=== PATIENT | female | born 1985 | race Caucasian/White ===

== ENCOUNTER → 2020-03-23 11:32 | Outpatient (CLI) | payer OTHER, SELFPAY ==
[2020-03-23 10:54] VITALS: BMI 27.4
[2020-03-23 11:35] LABS: Bacteria 0 SEEN /hpf (None Seen); Mucous, Urine 0 SEEN /hpf (<or=2+); Red Blood Cells-Urine 0 SEEN /hpf (0-5)
[2020-03-23 15:21] LABS: Basophil# 0.05 X10^3/uL; Basophil% 0.7 % (0-1); Color, Urine Yellow (Yellow); Eosinophil# 0.06 X10^3/uL; Eosinophils% 0.9 % (0-5); Glucose, Dipstick Normal (Normal); Hematocrit 48.6 % (37-47); Hemoglobin 15.5 g/dL (12.0-15.0); Ketone-Dipstick Negative (Negative); Leukocyte Esterase-Dipstick Negative /ul (Negative); Lymphocyte % 18.9 % (19-41); Mean Corp Hgb Conc 31.9 g/dL (32-36); Mean Corpuscular Hgb 30.5 pg (27.0-32.0); Mean Corpuscular Volume 95.5 fL (81-99); Mean Platelet Vol. 11.1 fl (6.2-12.0); Monocyte# 0.43 X10^3/uL; Monocyte% 6.2 % (0-10); NRBC Flagged by Analyzer 0 % (0-5); Neutrophil # 5.03 X10^3/uL (2.7-7.7); Nitrite-Dipstick Negative (Negative); Occult Blood-Urine Negative /ul (Negative); Platelet Count 299 K/mm3 (150-450); Protein-Dipstick 100 mg/dl (Negative); RBC Distribution Width CV 12.4 % (11.6-14.6); RBC Distribution Width SD 43.1 fl (35.1-43.9); Red Blood Count 5.09 M/mm3 (4.2-5.4); Urine Bilirubin Dipstick Negative (Negative); Urine Clarity Clear (Clear); Urine Urobilinogen Normal (Normal); White Blood Count 6.9 K/mm3 (4.4-11.0)
[2020-03-23 15:31] LABS: Squamous Epithelial Cells - UA 10-25 SEEN /hpf (5-10)
[2020-03-23 15:32] LABS: White Blood Cells 0-5 SEEN /hpf (0-5)
[2020-03-23 16:03] LABS: ALB/GLOB Ratio 1.1 RATIO (0.9-2.4); AST(SGOT) 11 U/L (15-37); Alanine Aminotransfer ALT/SGPT 21 U/L (13-56); Albumin, Serum 4.3 g/dL (3.2-5.0); Alkaline Phosphatase 58 U/L (45-117); Anion Gap 4 (5-15); BUN 9 mg/dL (7-18); BUN/Creat Ratio 10.5 RATIO (10-20); Calcium,Total 9.7 mg/dL (8.5-10.1); Chloride 105 mmol/L (98-107); Cholesterol 267 mg/dL (200); Creatinine, Serum 0.86 mg/dL (0.55-1.02); EST Glomerular Filtration Rate 79 mL/min (>60); Est Glom Filt Rate - Afr Amer 96 mL/min (>60); Globulin 3.9 g/dL (2.2-4.2); Glucose 92 mg/dL (74-106); High Density Lipoprotein 50 mg/dL; Potassium 3.8 mmol/L (3.5-5.1); Protein, Total 8.2 g/dL (6.4-8.2); Sodium Level 138 mmol/L (136-145); T4 Free Direct 0.98 ng/dL (0.76-1.46); Thyroid Stim Hormone (TSH) 3.16 uIU/mL (0.358-3.74); Triglycerides 239 mg/dL; Very Low Density Lipoprotein 48 mg/dL (5-40)
== END ==
PROVIDERS: PCP Internal Medicine; Referring Provider Internal Medicine; Visit Provider Internal Medicine
DX: I10 Essential (primary) hypertension (principal); Z13.29 Encounter for screening for other suspected endocrine disorder
CPT/HCPCS: 36415; 80053; 80061; 81001; 84439; 84443; 85025

== ENCOUNTER → 2020-04-04 09:32 | Outpatient (CLI) | payer OTHER, SELFPAY ==
[2020-03-23 10:54] VITALS: BMI 27.4
--- NOTE | 2020-04-04 09:33 | US_ITS ---
STUDY: THYROID ULTRASOUND REASON FOR EXAM: Female, 35 years old. NECK SWELLING TECHNIQUE: Ultrasound evaluation of the thyroid was performed with real-time and static freedman-scale imaging. COMPARISON: None. FINDINGS: RIGHT LOBE: The right lobe of the thyroid gland measures 4.4 cm x 1.6 cm x 0.9 cm. There is a homogeneous echotexture. There are no demonstrated solid, cystic or complex lesions. LEFT LOBE: The left lobe of the thyroid gland measures 4.2 cm x 1.5 cm x 1.2 cm. There is a homogeneous echotexture. There are no demonstrated solid, cystic or complex lesions. ISTHMUS: The isthmus measures 3.0 mm. The regional lymph nodes are normal. US/Thyroid IMPRESSION: Normal ultrasound examination of the thyroid. Electronically Signed: Newton Vincent, at 11:32 EDT , Service support ,
--- NOTE | 2020-04-04 09:33 | EKG12_ITS ---
Test Reason : HTN Blood Pressure : / mmHG Vent. Rate : 092 BPM Atrial Rate : 092 BPM P-R Int : 130 ms QRS Dur : 078 ms QT Int : 338 ms P-R-T Axes : 043 023 043 degrees QTc Int : 417 ms Normal sinus rhythm Normal ECG Confirmed by JEOVANY GALVEZ, GISELLE ([id number]), restaurant expeditor SUNG AMAYA ([id number]) on 04/05/2020 10:48:15 AM Referred By: Eloy Gonzalez Confirmed By:GISELLE THAYER MD
== END ==
PROVIDERS: PCP Internal Medicine; Referring Provider Internal Medicine; Visit Provider Internal Medicine
DX: R22.1 Localized swelling, mass and lump, neck (principal); I10 Essential (primary) hypertension
CPT/HCPCS: 76536; 93005

== ENCOUNTER → 2020-04-05 09:42 | Outpatient (CLI) | payer OTHER, SELFPAY ==
[2020-04-05 09:16] VITALS: BMI 27.4
[2020-04-05 12:44] LABS: Anion Gap 10 (5-15); BUN 13 mg/dL (7-18); BUN/Creat Ratio 15.2 RATIO (10-20); Calcium,Total 9.2 mg/dL (8.5-10.1); Chloride 103 mmol/L (98-107); Creatinine, Serum 0.86 mg/dL (0.55-1.02); EST Glomerular Filtration Rate 79 mL/min (>60); Est Glom Filt Rate - Afr Amer 96 mL/min (>60); Glucose 95 mg/dL (74-106); Potassium 3.4 mmol/L (3.5-5.1); Sodium Level 138 mmol/L (136-145)
== END ==
PROVIDERS: PCP Internal Medicine; Referring Provider Internal Medicine; Visit Provider Internal Medicine
DX: I10 Essential (primary) hypertension (principal)
CPT/HCPCS: 36415; 80048

== ENCOUNTER → 2020-07-05 09:41 | Outpatient (CLI) | payer OTHER, SELFPAY ==
[2020-07-05 13:04] LABS: Anion Gap 6 (5-15); BUN 13 mg/dL (7-18); BUN/Creat Ratio 13.2 RATIO (10-20); Calcium,Total 9.1 mg/dL (8.5-10.1); Chloride 106 mmol/L (98-107); Creatinine, Serum 0.98 mg/dL (0.55-1.02); EST Glomerular Filtration Rate 68 mL/min (>60); Est Glom Filt Rate - Afr Amer 82 mL/min (>60); Glucose 99 mg/dL (74-106); Sodium Level 139 mmol/L (136-145)
== END ==
PROVIDERS: PCP Internal Medicine; Referring Provider Internal Medicine; Visit Provider Internal Medicine
DX: I10 Essential (primary) hypertension (principal)
CPT/HCPCS: 36415; 80048

== ENCOUNTER → 2020-07-26 16:51 | Outpatient (CLI) | payer OTHER, SELFPAY ==
[2020-07-26 14:19] VITALS: BMI 27.7
[2020-08-01 04:29] LABS: HPV APTIMA, High Risk Negative (Negative)
== END ==
PROVIDERS: PCP Internal Medicine; Visit Provider Nurse Practitioner Women's Health
DX: Z12.4 Encounter for screening for malignant neoplasm of cervix (principal)
CPT/HCPCS: 87624; 88175; G0145

== ENCOUNTER → 2020-10-04 09:27 | Outpatient (CLI) | payer OTHER, SELFPAY ==
[2020-10-04 08:58] VITALS: BMI 27.1
[2020-10-04 14:33] LABS: Anion Gap 6 (5-15); BUN 11 mg/dL (7-18); BUN/Creat Ratio 12.1 RATIO (10-20); Calcium,Total 9.3 mg/dL (8.5-10.1); Chloride 104 mmol/L (98-107); Creatinine, Serum 0.91 mg/dL (0.55-1.02); EST Glomerular Filtration Rate 74 mL/min (>60); Est Glom Filt Rate - Afr Amer 89 mL/min (>60); Glucose 90 mg/dL (74-106); Potassium 3.4 mmol/L (3.5-5.1); Sodium Level 139 mmol/L (136-145)
== END ==
PROVIDERS: PCP Internal Medicine; Referring Provider Internal Medicine; Visit Provider Internal Medicine
DX: I10 Essential (primary) hypertension (principal)
CPT/HCPCS: 36415; 80048

== ENCOUNTER → 2020-11-09 11:24 | Outpatient (CLI) | payer OTHER, SELFPAY ==
[2020-11-09 10:38] VITALS: BMI 26.0
[2020-11-09 15:56] LABS: Anion Gap 6 (5-15); BUN 13 mg/dL (7-18); BUN/Creat Ratio 15.3 RATIO (10-20); Calcium,Total 9.8 mg/dL (8.5-10.1); Chloride 101 mmol/L (98-107); Creatinine, Serum 0.85 mg/dL (0.55-1.02); EST Glomerular Filtration Rate 80 mL/min (>60); Est Glom Filt Rate - Afr Amer 96 mL/min (>60); Glucose 90 mg/dL (74-106); Potassium 3.2 mmol/L (3.5-5.1); Sodium Level 137 mmol/L (136-145)
== END ==
PROVIDERS: PCP Internal Medicine; Referring Provider Internal Medicine; Visit Provider Internal Medicine
DX: I10 Essential (primary) hypertension (principal)
CPT/HCPCS: 36415; 80048

== ENCOUNTER 2020-11-30 10:20 | Outpatient (RCR) | payer OTHER, SELFPAY ==
[2020-11-09 10:38] VITALS: BMI 26.0
== END 2021-01-31 23:59 ==
LOC: IMMUN 10:20
PROVIDERS: PCP Internal Medicine; Visit Provider Family Medicine
DX: Z23 Encounter for immunization (principal)
CPT/HCPCS: 0002A; 91300

== ENCOUNTER → 2021-02-08 11:31 | Outpatient (CLI) | payer OTHER, SELFPAY ==
[2021-02-08 10:51] VITALS: BMI 26.0
[2021-02-08 12:12] LABS: Absolute Neutrophil Count 5.1 X10^3/uL (2.0-7.7); Basophil# 0.05 X10^3/uL; Basophil% 0.7 % (0-1); Eosinophils% 1.4 % (0-5); Hematocrit 48.1 % (37-47); Hemoglobin 15.8 g/dL (12.0-15.0); Lymphocyte % 19.4 % (19-41); Mean Corp Hgb Conc 32.8 g/dL (32-36); Mean Corpuscular Hgb 29.7 pg (27.0-32.0); Mean Corpuscular Volume 90.4 fL (81-99); Mean Platelet Vol. 10.7 fl (6.2-12.0); Monocyte# 0.56 X10^3/uL; Monocyte% 7.8 % (0-10); NRBC Flagged by Analyzer 0 % (0-5); Neutrophil # 5.07 X10^3/uL (2.7-7.7); Neutrophil % 70.4 % (47-70); Platelet Count 294 K/mm3 (150-450); RBC Distribution Width CV 11.9 % (11.6-14.6); RBC Distribution Width SD 39.4 fl (35.1-43.9); Red Blood Count 5.32 M/mm3 (4.2-5.4); White Blood Count 7.2 K/mm3 (4.4-11.0)
[2021-02-08 13:05] LABS: ALB/GLOB Ratio 1.1 RATIO (0.9-2.4); AST(SGOT) 9 U/L (15-37); Alanine Aminotransfer ALT/SGPT 18 U/L (13-56); Alkaline Phosphatase 58 U/L (45-117); Anion Gap 4 (5-15); BUN 9 mg/dL (7-18); BUN/Creat Ratio 10.9 RATIO (10-20); Calcium,Total 9.4 mg/dL (8.5-10.1); Chloride 104 mmol/L (98-107); Cholesterol 224 mg/dL (200); Creatinine, Serum 0.82 mg/dL (0.55-1.02); EST Glomerular Filtration Rate 82 mL/min (>60); Est Glom Filt Rate - Afr Amer 100 mL/min (>60); Globulin 3.7 g/dL (2.2-4.2); Glucose 83 mg/dL (74-106); High Density Lipoprotein 40 mg/dL; Potassium 3.5 mmol/L (3.5-5.1); Protein, Total 7.7 g/dL (6.4-8.2); Sodium Level 139 mmol/L (136-145); Triglycerides 330 mg/dL; Very Low Density Lipoprotein 66 mg/dL (5-40)
== END ==
PROVIDERS: PCP Internal Medicine; Referring Provider Internal Medicine; Visit Provider Internal Medicine
DX: I10 Essential (primary) hypertension (principal)
CPT/HCPCS: 36415; 80053; 80061; 85025

== ENCOUNTER → 2021-05-09 10:45 | Outpatient (CLI) | payer OTHER, SELFPAY ==
[2021-05-09 12:35] LABS: Anion Gap 8 (5-15); BUN 12 mg/dL (7-18); BUN/Creat Ratio 16.6 RATIO (10-20); Calcium,Total 9.1 mg/dL (8.5-10.1); Chloride 103 mmol/L (98-107); Creatinine, Serum 0.72 mg/dL (0.55-1.02); EST Glomerular Filtration Rate 96 mL/min (>60); Est Glom Filt Rate - Afr Amer 116 mL/min (>60); Glucose 97 mg/dL (74-106); Potassium 3.7 mmol/L (3.5-5.1); Sodium Level 140 mmol/L (136-145)
== END ==
PROVIDERS: PCP Internal Medicine; Referring Provider Internal Medicine; Visit Provider Internal Medicine
DX: I10 Essential (primary) hypertension (principal)
CPT/HCPCS: 36415; 80048

== ENCOUNTER → 2021-08-09 10:39 | Outpatient (CLI) | payer OTHER, SELFPAY ==
[2021-08-09 12:47] LABS: Cholesterol 244 mg/dL (200); High Density Lipoprotein 47 mg/dL; Triglycerides 193 mg/dL; Very Low Density Lipoprotein 39 mg/dL (5-40)
== END ==
PROVIDERS: PCP Internal Medicine; Visit Provider Internal Medicine
DX: E78.5 Hyperlipidemia, unspecified (principal)
CPT/HCPCS: 36415; 80061

== ENCOUNTER 2021-11-10 10:19 | Outpatient (CLI) | payer OTHER, SELFPAY ==
[2021-11-10 12:42] LABS: Anion Gap 5 (5-15); BUN 14 mg/dL (7-18); BUN/Creat Ratio 15.5 RATIO (10-20); Calcium,Total 9.1 mg/dL (8.5-10.1); Chloride 106 mmol/L (98-107); EST Glomerular Filtration Rate 74 mL/min (>60); Est Glom Filt Rate - Afr Amer 90 mL/min (>60); Glucose 87 mg/dL (74-106); Potassium 3.3 mmol/L (3.5-5.1); Sodium Level 138 mmol/L (136-145)
== END 2021-11-10 23:59 | disposition home or self-care (01) ==
LOC: BIMLAB 10:19
PROVIDERS: PCP Internal Medicine; Referring Provider Internal Medicine; Visit Provider Internal Medicine
DX: I10 Essential (primary) hypertension (principal)
CPT/HCPCS: 36415; 80048

== ENCOUNTER → 2022-02-27 | Outpatient (CLI) | payer OTHER, SELFPAY ==
[2022-02-27 12:27] LABS: Absolute Lymphocyte Count 1.51 X10^3/uL (0.83-4.51); Absolute Neutrophil Count 4.3 X10^3/uL (2.0-7.7); Basophil# 0.05 X10^3/uL; Basophil% 0.8 % (0-1); Eosinophil# 0.08 X10^3/uL; Eosinophils% 1.2 % (0-5); Hemoglobin 16.5 g/dL (12.0-15.0); Lymphocyte # 1.51 X10^3/ul (0.83-4.51); Lymphocyte % 23.1 % (19-41); Mean Corp Hgb Conc 32.4 g/dL (32-36); Mean Corpuscular Volume 92.7 fL (81-99); Mean Platelet Vol. 11.9 fl (6.2-12.0); Monocyte# 0.54 X10^3/uL; Monocyte% 8.3 % (0-10); NRBC Flagged by Analyzer 0 % (0-5); Neutrophil # 4.32 X10^3/uL (2.7-7.7); Neutrophil % 66.1 % (47-70); Platelet Count 262 K/mm3 (150-450); RBC Distribution Width CV 11.9 % (11.6-14.6); RBC Distribution Width SD 40.7 fl (35.1-43.9); White Blood Count 6.5 K/mm3 (4.4-11.0)
[2022-02-27 12:58] LABS: ALB/GLOB Ratio 1.1 RATIO (0.9-2.4); AST(SGOT) 13 U/L (15-37); Alanine Aminotransfer ALT/SGPT 16 U/L (13-56); Albumin, Serum 4.3 g/dL (3.2-5.0); Alkaline Phosphatase 56 U/L (45-117); Anion Gap 7 (5-15); BUN 11 mg/dL (7-18); BUN/Creat Ratio 12.7 RATIO (10-20); Chloride 100 mmol/L (98-107); Creatinine, Serum 0.87 mg/dL (0.55-1.02); EST Glomerular Filtration Rate 78 mL/min (>60); Est Glom Filt Rate - Afr Amer 94 mL/min (>60); Glucose 93 mg/dL (74-106); Potassium 3.2 mmol/L (3.5-5.1); Protein, Total 8.3 g/dL (6.4-8.2); Sodium Level 136 mmol/L (136-145)
== END | disposition home or self-care (01) ==
LOC: BIMLAB 10:22
PROVIDERS: PCP Internal Medicine; Visit Provider Internal Medicine
DX: I10 Essential (primary) hypertension (principal)
CPT/HCPCS: 36415; 80053; 85025

== ENCOUNTER 2022-04-07 14:57 | Emergency (ER) | payer OTHER, SELFPAY ==
[2022-04-07 14:58] VITALS: BP 142/98; PULSE 107; RESP 16; TEMP 36.4; O2SAT 100; BMI 26.9
--- NOTE | 2022-04-07 15:11 | EX.ED.UPPERE ---
HPI <JOSE Ramirez - Last Filed: 04/07/22 15:43> History of Present Illness Chief Complaint: Upper Extremity Injury Narrative Narrative: 6 days ago patient noticed some redness around the nail fold of her left index finger. It became more swollen and red over the last 2 days. No trauma or injury. No fever or chills. PFSH <JOSE Ramirez - Last Filed: 04/07/22 15:43> PFSH Medical History Frequent headaches Hyperlipidemia Hypokalemia Seasonal allergies Home Medications acetaminophen 325 mg capsule (Tylenol) 650 mg PO ONCE PRN 03/15/20 [History Last Taken Unknown] blood pressure monitor #1 ea 03/23/20 [Rx Last Taken Unknown] loperamide 2 mg capsule (Imodium A-D) 2 mg PO Q6H PRN 07/26/20 [History Last Taken Unknown] sumatriptan succinate 25 mg tablet See Rx Instructions PO .COMPLEX #14 tabs 02/09/21 [Rx Last Taken Unknown] triamterene 37.5 mg-hydrochlorothiazide 25 mg tablet 1 tab PO QAM #90 tabs 11/13/21 [Rx Last Taken Unknown] losartan 25 mg tablet 25 mg PO DAILY #90 tabs 02/12/22 [Rx Last Taken Unknown] potassium chloride 20 mEq tablet,extended release 20 meq PO BID #90 tabs 04/02/22 [Rx Last Taken Unknown] Allergy/AdvReac Type Severity Reaction Status Date / Time Penicillins Allergy Intermediate hives Verified 04/07/22 14:58 laundry detergents Allergy Intermediate hives Uncoded 04/07/22 14:58 strawberries Allergy Intermediate hives Uncoded 04/07/22 14:58 Family History Mother Myocardial infarction, Onset Age: 45 Hypertension Thyroid disorder Osteoporosis Father Hyperlipemia Hypertension Grandmother Myocardial infarction, Onset Age: 48 Hypertension Thyroid disorder Surgical History History of tonsillectomy Social History household members: other details: mom current occupational status: employed current occupation: [employer] history of recent travel: No sexually active: Yes Smoking Status: Never smoker alcohol intake: never substance use type: does not use what type of physical activity do you participate in: walking seatbelt use: always do you feel safe at home: Yes additional social history: boyfriend ROS <JOSE Ramirez - Last Filed: 04/07/22 15:43> ROS ED ROS Narrative Constitutional: Negative for fever, chills, malaise. Eyes: Negative for visual change. ENT: Negative for sore throat, rhinorrhea. CVS: Negative for palpitations, chest pain, syncope. Respiratory: Negative for shortness of breath, cough. GI: Negative for abdominal pain, nausea, vomiting. : Negative for dysuria, hematuria or frequency. Neuro: Negative for headache, motor/sensory dysfunction. Skin: Positive for redness and swelling of finger. Musc: Negative for joint pain, trauma. Heme: Negative for easy bruising, bleeding, lymphadenopathy. EXAM <JOSE Ramirez - Last Filed: 04/07/22 15:43> Physical Exam Narrative Exam Narrative: CONST: Patient sitting in no acute distress. EYES: Normal inspection. NECK: Normal inspection. RESP: No respiratory distress, CTAB. CVS: Regular rate and rhythm, no murmur, no gallop. SKIN: Color normal, no rash, warm, dry, intact. EXTREMITIES: left index finger nail fold has focal erythema and swelling. No felon, full ROM of hand and digits, brisk cap refill. NEURO: Oriented x4. PSYCH: Normal affect. Const Vital Signs: 04/07/22 14:58 Temperature 97.5 F L Temperature Source Temporal Pulse Rate 107 H Respiratory Rate 16 Blood Pressure 142/98 H Blood Pressure Mean 112 Pulse Ox 100 Oxygen Delivery Method Room Air MDM <JOSE Ramirez - Last Filed: 04/07/22 15:43> [facility] MDM Narrative Medical decision making narrative: Patient presents with a paronychia of her left index finger. She has full range of motion and is neurovascularly intact. No signs of felon. Finger was soaked in warm water and then I used an 18-gauge needle to gently lift the nail fold. Approximately 1 cc of purulent material was expressed. Patient advised to continue warm water soaks and [id number] analgesia and was discharged in stable condition. <Dr. Moe Zapata, DO - Last Filed: 04/07/22 16:10> [facility] MDM Narrative Medical decision making narrative: This patient was seen with a PA/KEYMODULE ASSEMBLY SUPERVISOR Individually assessed they patient including history and physical. I have reviewed everything on the chart that is available and agree with the documentation provided by the PA/KEYMODULE ASSEMBLY SUPERVISOR including discussion about the assessment, treatment plan, discussion, and return precautions. Patient with small paronychia of the left index finger. PA did drain this patient tolerated this well. Wound care and return precautions discussed. Patient stable for discharge. Patient presents with a paronychia of her left index finger. She has full range of motion and is neurovascularly intact. No signs of felon. Finger was soaked in warm water and then I used an 18-gauge needle to gently lift the nail fold. Approximately 1 cc of purulent material was expressed. Patient advised to continue warm water soaks and [id number] analgesia and was discharged in stable condition. Discharge Plan Triage Chief Complaint: Upper Extremity Injury ED Midlevel Provider: Asuncion Manriquez ED Provider: Moe Zapata Dx/Rx/DC Orders Clinical Impression: Paronychia of left index finger Instructions: ED Paronychia of the Finger or Toe Prescriptions: No Action (DME) blood pressure monitor Kit See Rx Instructions .ROUTE .MEDSUPPLY Qty: 1 0RF Rx Instructions: Check blood pressure daily for hypertension I10 acetaminophen [Tylenol] 325 mg capsule 650 mg PO ONCE PRN loperamide [Imodium A-D] 2 mg capsule 2 mg PO Q6H PRN sumatriptan succinate 25 mg tablet See Rx Instructions PO .COMPLEX Qty: 14 0RF Rx Instructions: take 1 tab at onset of headache; if no relief may repeat 1 tab after at least 2 hrs; max = 4 tabs/24 hr PO triamterene-hydrochlorothiazid 37.5-25 mg tablet 1 tab PO QAM Qty: 90 2RF losartan 25 mg tablet 25 mg PO DAILY Qty: 90 3RF potassium chloride 20 mEq tablet extended release 20 meq PO BID Qty: 90 3RF Hold Instructions: Home Medication placed on hold at Doctor's office Primary Care Provider: Eloy Gonzalez Referrals: Eloy Gonzalez MD [Primary Care Provider] - Activity Restrictions/Additional Instructions: Soak your finger in warm water 4 times daily for the next few days and take tylenol or ibuprofen as needed. Disposition Disposition: Home, Self Care Discharge Date/Time: 04/07/22 15:57
== END 2022-04-07 15:57 | disposition home or self-care (01) ==
LOC: ED 15:43
PROVIDERS: Emergency Provider Student in an Organized Health Care Education/Training Program; PCP Internal Medicine; Visit Provider Student in an Organized Health Care Education/Training Program
DX: L03.012 Cellulitis of left finger (principal)
CPT/HCPCS: 99282

== ENCOUNTER → 2022-08-08 | Outpatient (CLI) | payer OTHER, SELFPAY ==
--- NOTE | 2022-08-08 12:36 | BI_ITS ---
MAMMOGRAPHY - BILATERAL SCREENING REASON FOR EXAM: Female, 37 years old. Routine annual screening examination. PERTINENT HISTORY: Non-contributory. TECHNIQUE: Digital bilateral breast mu (3D mammographic acquisition) in the CC and MLO projections. 2-D mediolateral oblique (MLO) and craniocaudad (CC) views of both breasts were obtained. CAD: Full Field Digital Mammography with Computer Added Detection was performed. COMPARISON: None. Baseline examination. FINDINGS: Breast Composition: The breasts are heterogeneously dense, which may obscure small masses. There are no dominant masses or suspicious calcifications. There is asymmetry of breast tissue or more breast tissue is seen in the deep lateral aspect of the right breast as compared to the left side. Small benign-appearing bilateral axillary lymph nodes. No other significant abnormalities are identified. BI/SCRN MAMM (CAD)W/MU BILAT IMPRESSION: Negative screening mammogram. Yearly followup mammogram recommended. (A) ASSESSMENT CATEGORY: BIRADS Category 2: Benign. A letter regarding these results will be sent to the patient by the facility within 30 days. Approximately 10% of breast cancers are not detected by mammography. A normal mammogram should not delay biopsy of a clinically suspicious abnormality. [id number] Electronically Signed: Newton Vincent MD at 13:32 EST ,
== END | disposition home or self-care (01) ==
LOC: OPBI 12:36
PROVIDERS: PCP Internal Medicine; Visit Provider Nurse Practitioner Women's Health
DX: Z12.31 Encounter for screening mammogram for malignant neoplasm of breast (principal)
CPT/HCPCS: 77063; 77067

== ENCOUNTER → 2022-09-21 | Outpatient (CLI) | payer OTHER, SELFPAY ==
[2022-09-21 12:36] LABS: ALB/GLOB Ratio 1.2 RATIO (0.9-2.4); AST(SGOT) 15 U/L (15-37); Alanine Aminotransfer ALT/SGPT 22 U/L (13-56); Albumin, Serum 4.1 g/dL (3.2-5.0); Alkaline Phosphatase 57 U/L (45-117); Anion Gap 7 (5-15); BUN 16 mg/dL (7-18); BUN/Creat Ratio 15.7 RATIO (10-20); Calcium,Total 9.5 mg/dL (8.5-10.1); Chloride 103 mmol/L (98-107); Cholesterol 258 mg/dL (200); Creatinine, Serum 1.02 mg/dL (0.55-1.02); EST Glomerular Filtration Rate 64 mL/min (>60); Est Glom Filt Rate - Afr Amer 77 mL/min (>60); Globulin 3.5 g/dL (2.2-4.2); Glucose 111 mg/dL (74-106); High Density Lipoprotein 42 mg/dL; Potassium 3.9 mmol/L (3.5-5.1); Protein, Total 7.6 g/dL (6.4-8.2); Sodium Level 138 mmol/L (136-145); Triglycerides 264 mg/dL; Very Low Density Lipoprotein 53 mg/dL (5-40)
== END | disposition home or self-care (01) ==
LOC: BIMLAB 09:49
PROVIDERS: PCP Internal Medicine; Referring Provider Internal Medicine; Visit Provider Internal Medicine
DX: I10 Essential (primary) hypertension (principal); E78.5 Hyperlipidemia, unspecified
CPT/HCPCS: 36415; 80053; 80061

== ENCOUNTER → 2022-12-24 | Outpatient (CLI) | payer OTHER, SELFPAY ==
[2022-12-24 12:51] LABS: ALB/GLOB Ratio 1.2 RATIO (0.9-2.4); AST(SGOT) 13 U/L (15-37); Alanine Aminotransfer ALT/SGPT 27 U/L (13-56); Albumin, Serum 4.2 g/dL (3.2-5.0); Alkaline Phosphatase 60 U/L (45-117); Anion Gap 8 (5-15); BUN 14 mg/dL (7-18); BUN/Creat Ratio 15.7 RATIO (10-20); Chloride 103 mmol/L (98-107); Creatinine, Serum 0.89 mg/dL (0.55-1.02); EST Glomerular Filtration Rate 75 mL/min (>60); Est Glom Filt Rate - Afr Amer 90 mL/min (>60); Globulin 3.4 g/dL (2.2-4.2); Glucose 92 mg/dL (74-106); Potassium 4.1 mmol/L (3.5-5.1); Protein, Total 7.6 g/dL (6.4-8.2); Sodium Level 139 mmol/L (136-145)
== END | disposition home or self-care (01) ==
LOC: BIMLAB 10:25
PROVIDERS: PCP Internal Medicine; Referring Provider Internal Medicine; Visit Provider Internal Medicine
DX: E78.2 Mixed hyperlipidemia (principal)
CPT/HCPCS: 36415; 80053

== ENCOUNTER 2023-02-16 12:32 | Emergency (ER) | payer OTHER, SELFPAY ==
[2023-02-16 12:32] VITALS: BP 164/108; PULSE 112; RESP 16; TEMP 36.2; O2SAT 100; BMI 27.4
--- NOTE | 2023-02-16 12:52 | EX.ED.DYSGE1 ---
HPI <JOSE Ramirez - Last Filed: 02/16/23 14:09> History of Present Illness Chief Complaint: Sore Throat Narrative Narrative: 37-year-old female states for the last 2 days it felt like something is stuck in her throat. She never had a choking or swallowing issue. She has been able to eat and drink normally. She states she feels a little bit nauseous and spit up some phlegm but has no vomiting. She has never had this issue before. PFSH <JOSE Ramirez - Last Filed: 02/16/23 14:09> [facility] Medical History Dry skin dermatitis Frequent headaches Hyperlipidemia Hypokalemia Seasonal allergies Home Medications acetaminophen 325 mg capsule (Tylenol) 650 mg PO ONCE PRN 03/15/20 [History Last Taken Unknown] blood pressure monitor #1 ea 03/23/20 [Rx Last Taken Unknown] loperamide 2 mg capsule (Imodium A-D) 2 mg PO Q6H PRN 07/26/20 [History Last Taken Unknown] sumatriptan succinate 25 mg tablet See Rx Instructions PO .COMPLEX #14 tabs 02/09/21 [Rx Last Taken Unknown] potassium chloride 20 mEq tablet,extended release 20 meq PO BID #90 tabs 09/21/22 [Rx Last Taken Unknown] losartan 25 mg tablet 25 mg PO DAILY #90 tabs 12/24/22 [Rx Last Taken Unknown] rosuvastatin 10 mg tablet 10 mg PO DAILY #90 tabs 12/24/22 [Rx Last Taken Unknown] triamterene 37.5 mg-hydrochlorothiazide 25 mg tablet 1 tab PO QAM #90 tabs 12/24/22 [Rx Last Taken Unknown] Allergy/AdvReac Type Severity Reaction Status Date / Time Penicillins Allergy Intermediate hives Verified 02/16/23 12:34 soap Allergy Hives Verified 02/16/23 12:34 strawberry Allergy Hives Verified 02/16/23 12:34 Family History Mother Myocardial infarction, Onset Age: 45 Hypertension Thyroid disorder Osteoporosis Father Hyperlipemia Hypertension Grandmother Myocardial infarction, Onset Age: 48 Hypertension Thyroid disorder Surgical History History of tonsillectomy Social History household members: other details: mom current occupational status: employed 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 ENT: Negative for sore throat, ear pain, rhinorrhea. CVS: Negative for palpitations, chest pain. Respiratory: Negative for shortness of breath, cough. GI: Negative for abdominal pain, nausea, vomiting. : Negative for dysuria, hematuria or frequency. EXAM <JOSE Ramirez - Last Filed: 02/16/23 14:09> Physical Exam Narrative Exam Narrative: CONST: Patient sitting in no acute distress. EYES: Normal inspection. ENT: Normal oropharynx, midline uvula. No trismus or tongue elevation, sublingual space is soft. NECK: Normal inspection. Trachea midline, no masses or lymphadenopathy. RESP: No respiratory distress, CTAB. CVS: Regular rate and rhythm, no murmur, no gallop. ABD: Soft and nontender, no guarding or rebound, nondistended. SKIN: Color normal, no rash, warm, dry, intact. EXTREMITIES: Normal appearance, no pedal edema. NEURO: Oriented x4. PSYCH: Normal affect. Const Vital Signs: 02/16/23 12:32 02/16/23 12:32 Temperature 97.2 F L Temperature Source Temporal Pulse Rate 112 H Respiratory Rate 16 Respiratory Effort Normal Non-Labored Respiratory Pattern Normal Blood Pressure 164/108 H Blood Pressure Mean 126 Pulse Ox 100 Oxygen Delivery Method Room Air <Dr. Moe Zapata DO - Last Filed: 02/16/23 15:27> Physical Exam Const Vital Signs: 02/16/23 12:32 02/16/23 12:32 Temperature 97.2 F L Temperature Source Temporal Pulse Rate 112 H Respiratory Rate 16 Respiratory Effort Normal Non-Labored Respiratory Pattern Normal Blood Pressure 164/108 H Blood Pressure Mean 126 Pulse Ox 100 Oxygen Delivery Method Room Air [facility] <Asuncion Manriquez PA - Last Filed: 02/16/23 14:09> [facility] Narrative Medical decision making narrative: Patient has a globus sensation. No difficulty swallowing or breathing. No choking. She speaking in full sentences in no distress. Upper airway appears patent with no evidence of infection. Trachea is midline. Neck has no masses or lymphadenopathy. I do not feel an enlarged thyroid. Soft tissue neck x-ray is unremarkable. She was treated with Zofran and GI cocktail with some improvement but still has a foreign body sensation. Since she is tolerating p.o. intake I think she can follow-up outpatient with either ENT/GI and I provided both referrals. We discussed return precautions and she was discharged in stable condition. Differential: Foreign body obstruction, strep throat, GERD, postnasal drip Radiography Diagnostic Testing: Clinical Impression(s) from Imaging Studies Soft Tissue Neck X-Ray 02/16/23 13:43 IMPRESSION: Negative. Electronically Signed: Garrick Guzman MD at 13:58 EDT Reading Location ID and State: [facility] / [place] Tel , Service support , ED attending interpretation of cervical soft tissues appears unremarkable. <Dr. Moe Zapata DO - Last Filed: 02/16/23 15:27> [facility] Narrative Medical decision making narrative: Patient has a globus sensation. No difficulty swallowing or breathing. No choking. She speaking in full sentences in no distress. Upper airway appears patent with no evidence of infection. Trachea is midline. Neck has no masses or lymphadenopathy. I do not feel an enlarged thyroid. Soft tissue neck x-ray is unremarkable. She was treated with Zofran and GI cocktail with some improvement but still has a foreign body sensation. Since she is tolerating p.o. intake I think she can follow-up outpatient with either ENT/GI and I provided both referrals. We discussed return precautions and she was discharged in stable condition. Differential: Foreign body obstruction, strep throat, GERD, postnasal drip This patient was seen with a PA/DIORAMA MODEL MAKER Individually assessed they patient including history and physical. I have reviewed everything on the chart that is available and agree with the documentation provided by the PA/DIORAMA MODEL MAKER including discussion about the assessment, treatment plan, discussion, and return precautions. Patient seen and evaluated for globus hystericus. She does not recall any foreign body. Soft tissue neck x-ray my interpretation is negative for acute findings. She will be given follow-up with ENT and GI. Return precautions discussed. Radiography Diagnostic Testing: Clinical Impression(s) from Imaging Studies Soft Tissue Neck X-Ray 02/16/23 13:43 IMPRESSION: Negative. Electronically Signed: Garrick Guzman MD at 13:58 EDT Reading Location ID and State: [facility] / [place] Tel , Service support , Discharge Plan Triage Chief Complaint: Sore Throat ED Midlevel Provider: Asuncion Manriquez ED Provider: Moe Zapata Dx/Rx/DC Orders Clinical Impression: Globus sensation Prescriptions: No Action (DME) blood pressure monitor Kit See Rx Instructions .ROUTE .MEDSUPPLY Qty: 1 0RF Rx Instructions: Check blood pressure daily for hypertension I10 acetaminophen [Tylenol] 325 mg capsule 650 mg PO ONCE PRN loperamide [Imodium A-D] 2 mg capsule 2 mg PO Q6H PRN potassium chloride 20 mEq tablet extended release 20 meq PO BID Qty: 90 3RF Hold Instructions: Home Medication placed on hold at Doctor's office losartan 25 mg tablet 25 mg PO DAILY Qty: 90 3RF triamterene-hydrochlorothiazid 37.5-25 mg tablet 1 tab PO QAM Qty: 90 3RF rosuvastatin 10 mg tablet 10 mg PO DAILY Qty: 90 2RF sumatriptan succinate 25 mg tablet See Rx Instructions PO .COMPLEX Qty: 14 0RF Rx Instructions: take 1 tab at onset of headache; if no relief may repeat 1 tab after at least 2 hrs; max = 4 tabs/24 hr PO Primary Care Provider: Eloy Gonzalez Referrals: Isidro Cardona MD [Med Staff - Courtesy Staff] - Eloy Gonzalez MD [Primary Care Provider] - Dario Wolfe DO [Med Staff - Active Staff] - Activity Restrictions/Additional Instructions: Please follow-up with GI or ENT for further evaluation. If you are unable to swallow come back to the emergency room. Disposition Disposition: Home, Self Care Discharge Date/Time: 02/16/23 14:10
[2023-02-16] MEDS: Ondansetron ODT 4 MG Tablet PO (13:27)
[2023-02-16] MEDS: Mag Hydrox/Al Hydrox/Simeth 30 ML UDC PO (13:27)
--- NOTE | 2023-02-16 13:43 | RAD_ITS ---
INDICATION: FB sensation EXAMINATION/TECHNIQUE: X-RAY - XR Neck Soft Tissue COMPARISON: FINDINGS: SOFT TISSUES: Unremarkable. No radiopaque foreign body. EPIGLOTTIS: No pathologic thickening or enlargement. PROXIMAL AIRWAY: Grossly patent. RAD/Neck for Soft Tissue IMPRESSION: Negative. Electronically Signed: Garrick Guzman MD at 13:58 EDT ,
== END 2023-02-16 14:10 | disposition home or self-care (01) ==
PROVIDERS: Emergency Provider Student in an Organized Health Care Education/Training Program; PCP Internal Medicine; Visit Provider Student in an Organized Health Care Education/Training Program
DX: F45.8 Other somatoform disorders (principal); J02.9 Acute pharyngitis, unspecified
CPT/HCPCS: 70360; 99283

== ENCOUNTER 2023-02-19 22:29 | Emergency (ER) | payer OTHER, SELFPAY ==
[2023-02-19 22:30] VITALS: BP 160/92; PULSE 104; RESP 18; TEMP 36.2; O2SAT 100; BMI 26.6
[2023-02-19] MEDS: 0.9% Normal Saline 1,000 ML 999 ML IV (23:10)
[2023-02-19 23:35] LABS: Absolute Lymphocyte Count 1.94 X10^3/uL (0.83-4.51); Absolute Neutrophil Count 4.9 X10^3/uL (2.0-7.7); Basophil# 0.09 X10^3/uL; Basophil% 1.1 % (0-1); Eosinophils% 1.2 % (0-5); Hematocrit 46.9 % (37-47); Lymphocyte # 1.94 X10^3/ul (0.83-4.51); Lymphocyte % 24.1 % (19-41); Mean Corp Hgb Conc 34.1 g/dL (32-36); Mean Corpuscular Hgb 30.8 pg (27.0-32.0); Mean Corpuscular Volume 90.2 fL (81-99); Mean Platelet Vol. 10.7 fl (6.2-12.0); Monocyte# 0.86 X10^3/uL; Monocyte% 10.7 % (0-10); NRBC Flagged by Analyzer 0 % (0-5); Neutrophil # 4.88 X10^3/uL (2.7-7.7); Neutrophil % 60.7 % (47-70); Platelet Count 249 K/mm3 (150-450); RBC Distribution Width CV 11.9 % (11.6-14.6); White Blood Count 8.1 K/mm3 (4.4-11.0)
[2023-02-19 23:42] LABS: Internal QC Validated? YES +Cl - CLEAR BKGD; Pregnancy, Serum, hCG Quali. NEGATIVE Negative
[2023-02-19 23:57] LABS: Anion Gap 4 (5-15); BUN 12 mg/dL (7-18); BUN/Creat Ratio 14.5 RATIO (10-20); Calcium,Total 9.3 mg/dL (8.5-10.1); Chloride 104 mmol/L (98-107); Creatinine, Serum 0.83 mg/dL (0.55-1.02); EST Glomerular Filtration Rate 81 mL/min (>60); Est Glom Filt Rate - Afr Amer 99 mL/min (>60); Estimated Creatinine Clearance 85.19 ml/min; Glucose 107 mg/dL (74-106); Magnesium 2.3 mg/dL (1.6-2.6); Potassium 3.1 mmol/L (3.5-5.1); Sodium Level 139 mmol/L (136-145); Thyroid Stim Hormone (TSH) 2.73 uIU/mL (0.358-3.74)
[2023-02-20 00:37] VITALS: PULSE 96; RESP 16; O2SAT 99
--- NOTE | 2023-02-20 00:37 | EDS_ITS ---
HPI History of Present Illness Chief Complaint: Dizziness Informant: patient Narrative Narrative: Patient is a 37-year-old female with past medical history of hypertension hyperlipidemia and migraine headache. She states that today for the entire days she has felt some numbness and tingling to both hands and feet. She denies any history of diabetes. She states that there is been no headache or change in vision associated with this. She states that she has felt lightheaded but has been able to walk with a steady gait throughout the day. However symptoms have persisted for multiple hours she presents for evaluation. [facility] Medical History Dry skin dermatitis Frequent headaches Hyperlipidemia Hypokalemia Seasonal allergies Home Medications acetaminophen 325 mg capsule (Tylenol) 650 mg PO ONCE PRN 03/15/20 [History Last Taken Unknown] blood pressure monitor #1 ea 03/23/20 [Rx Last Taken Unknown] loperamide 2 mg capsule (Imodium A-D) 2 mg PO Q6H PRN 07/26/20 [History Last Taken Unknown] sumatriptan succinate 25 mg tablet See Rx Instructions PO .COMPLEX #14 tabs 02/09/21 [Rx Last Taken Unknown] potassium chloride 20 mEq tablet,extended release 20 meq PO BID #90 tabs 09/21/22 [Rx Last Taken Unknown] losartan 25 mg tablet 25 mg PO DAILY #90 tabs 12/24/22 [Rx Last Taken Unknown] rosuvastatin 10 mg tablet 10 mg PO DAILY #90 tabs 12/24/22 [Rx Last Taken Unknown] triamterene 37.5 mg-hydrochlorothiazide 25 mg tablet 1 tab PO QAM #90 tabs 12/24/22 [Rx Last Taken Unknown] Allergy/AdvReac Type Severity Reaction Status Date / Time Penicillins Allergy Intermediate hives Verified 02/19/23 22:29 soap Allergy Hives Verified 02/19/23 22:29 strawberry Allergy Hives Verified 02/19/23 22:29 Family History Mother Myocardial infarction, Onset Age: 45 Hypertension Thyroid disorder Osteoporosis Father Hyperlipemia Hypertension Grandmother Myocardial infarction, Onset Age: 48 Hypertension Thyroid disorder Surgical History History of tonsillectomy Social History household members: other details: mom current occupational status: employed current occupation: [employer] @ [employer] history of recent travel: No sexually active: Yes Smoking Status: Never smoker alcohol intake: never substance use type: does not use what type of physical activity do you participate in: walking seatbelt use: always do you feel safe at home: Yes additional social history: boyfriend ROS ROS ED Constitutional Constitutional ED: Denies chills or fever(s) Eyes Eyes: Denies change in vision ENT ENT ED: Denies sore throat Cardiovascular Cardiovascular: Denies chest pain, palpitations or racing heartbeat Respiratory/Chest Respiratory/Chest: Denies cough or dyspnea Gastrointestinal Gastrointestinal: Denies abdominal pain, diarrhea, nausea or vomiting Genitourinary Genitourinary ED: Denies dysuria Musculoskeletal Musculoskeletal: Denies myalgias Integumentary Denies rash Neurologic Neurologic: Reports paresthesias; Denies headache(s) or weakness Hematologic/Lymphatic Hematologic/Lymphatic: Denies easy bleeding or easy bruising EXAM Physical Exam Const Vital Signs: 02/19/23 22:30 02/19/23 22:42 Temperature 97.1 F L Temperature Source Temporal Pulse Rate 104 H Respiratory Rate 18 Respiratory Pattern Normal Blood Pressure 160/92 H Blood Pressure Mean 114 Pulse Ox 100 Positive well nourished and well developed General Appearance ED: well developed HEENT Reports moist mucous membranes HEENT Narrative: No tongue or lip swelling no oral lesions no airway edema or compromise Eyes PERRL and EOMs intact bilaterally Neck supple Resp normal respiratory effort and clear to auscultation bilaterally Cardio regular rate and regular rhythm Rate: other Other Details: Radial pulses are plus 2 out of 4 bilaterally are equal and symmetric GI normal to inspection, nondistended, normoactive bowel sounds, non-tender, non- distended and no masses Auscultation: normoactive bowel sounds Palpation: soft Extremity normal to inspection Neuro oriented x3, CN's II-XII intact bilaterally and no sensory deficits noted Neuro Narrative: Cranial nerves II through XII are grossly intact. No focal neurologic deficit. No pronator drift no dysmetria no truncal ataxia. NIH stroke scale score of 0 Patient reports paresthesias in her bilateral hands and feet but when patient is tested with soft and sharp sensation in multiple dermatomes she has no dysfunction. Sensorium / Orientation: alert Motor Exam: strength 5/5 throughout Psych mental status grossly normal Skin no rashes or lesions noted MDM MDM MDM Narrative Medical decision making narrative: Patient presented to the ER hypertensive otherwise with stable vitals and does have a history of hypertension so this is not to be unexpected. She reported paresthesias in hands and feet for the entire day and differential diagnosis includes anxiety versus electrolyte abnormality versus neurologic event versus. The patient's neuro exam is normal and when she was stressed with testing of the sharp and soft sensation in multiple dermatomes there was no deficits so I felt no need for head CT. Her electrolytes showed mild decreased potassium at 3.1 which should not cause any true. Her blood sugar is essentially normal at 107 and there is no anion gap or derangement to her bicarb going against diabetes as a cause of her reported paresthesias. At this time patient's work-up is negative her vitals remained stable and there are no signs of this is associated with a neurologic event so there is no need for admission to the hospital patient is otherwise safe for discharge. History & Record Review Discussion w/independent historian: Patient Lab Data Attestation: I reviewed the patient's lab results. Labs: Laboratory Results - last 24 hr 02/19/23 02/19/23 02/19/23 23:10 23:10 23:10 WBC 8.1 RBC 5.20 Hgb 16.0 H Hct 46.9 MCV 90.2 MCH 30.8 MCHC 34.1 RDW Std Deviation 39.0 RDW Coeff of Palomo 11.9 Plt Count 249 MPV 10.7 Immature Gran % (Auto) 2.200 H Neut % (Auto) 60.7 Lymph % (Auto) 24.1 [place] % (Auto) 10.7 H Eos % (Auto) 1.2 Baso % (Auto) 1.1 H Absolute Neuts (auto) 4.9 Absolute Lymphs (auto) 1.94 Nucleated RBC % 0 Sodium 139 Potassium 3.1 L Chloride 104 Carbon Dioxide 31.0 Anion Gap 4 L BUN 12 Creatinine 0.83 Estim Creat Clear Calc 85.19 Est GFR (MDRD) Af Amer 99 Est GFR (MDRD) Non-Af 81 BUN/Creatinine Ratio 14.5 Glucose 107 H Calcium 9.3 Magnesium 2.3 TSH 2.73 Serum , Qual NEGATIVE Discharge Plan Triage Chief Complaint: Dizziness ED Provider: Cody Gonzalez Dx/Rx/DC Orders Clinical Impression: Paresthesias, Hypokalemia, Hypertension Instructions: ED Hypokalemia, ED Paraesthesias Prescriptions: No Action (DME) blood pressure monitor Kit See Rx Instructions .ROUTE .MEDSUPPLY Qty: 1 0RF Rx Instructions: Check blood pressure daily for hypertension I10 acetaminophen [Tylenol] 325 mg capsule 650 mg PO ONCE PRN loperamide [Imodium A-D] 2 mg capsule 2 mg PO Q6H PRN potassium chloride 20 mEq tablet extended release 20 meq PO BID Qty: 90 3RF Hold Instructions: Home Medication placed on hold at Doctor's office losartan 25 mg tablet 25 mg PO DAILY Qty: 90 3RF triamterene-hydrochlorothiazid 37.5-25 mg tablet 1 tab PO QAM Qty: 90 3RF rosuvastatin 10 mg tablet 10 mg PO DAILY Qty: 90 2RF sumatriptan succinate 25 mg tablet See Rx Instructions PO .COMPLEX Qty: 14 0RF Rx Instructions: take 1 tab at onset of headache; if no relief may repeat 1 tab after at least 2 hrs; max = 4 tabs/24 hr PO Stand Alone Forms: ED Work / School Excuse Primary Care Provider: Eloy Gonzalez Referrals: Eloy Gonzalez MD [Primary Care Provider] - Disposition Disposition: Home, Self Care
== END 2023-02-20 00:55 | disposition home or self-care (01) ==
PROVIDERS: Emergency Provider Emergency Medicine; PCP Internal Medicine; Visit Provider Emergency Medicine
DX: R20.2 Paresthesia of skin (principal); E87.6 Hypokalemia; I10 Essential (primary) hypertension
CPT/HCPCS: 80048; 83735; 84443; 84703; 85025; 99284; J7030

== ENCOUNTER → 2023-08-07 | Outpatient (CLI) | payer OTHER, SELFPAY ==
[2023-08-07 15:38] LABS: Absolute Lymphocyte Count 1.63 X10^3/uL (0.83-4.51); Absolute Neutrophil Count 5.2 X10^3/uL (2.0-7.7); Basophil# 0.08 X10^3/uL; Eosinophil# 0.29 X10^3/uL; Eosinophils% 3.7 % (0-5); Hematocrit 48.3 % (37-47); Hemoglobin 15.6 g/dL (12.0-15.0); Lymphocyte # 1.63 X10^3/ul (0.83-4.51); Lymphocyte % 20.8 % (19-41); Mean Corp Hgb Conc 32.3 g/dL (32-36); Mean Corpuscular Hgb 29.9 pg (27.0-32.0); Mean Corpuscular Volume 92.7 fL (81-99); Mean Platelet Vol. 10.6 fl (6.2-12.0); Monocyte% 7.7 % (0-10); NRBC Flagged by Analyzer 0 % (0-5); Neutrophil % 66.3 % (47-70); Platelet Count 282 K/mm3 (150-450); RBC Distribution Width CV 12.1 % (11.6-14.6); RBC Distribution Width SD 41.8 fl (35.1-43.9); Red Blood Count 5.21 M/mm3 (4.2-5.4); White Blood Count 7.8 K/mm3 (4.4-11.0)
[2023-08-07 16:13] LABS: ALB/GLOB Ratio 1.1 RATIO (0.9-2.4); AST(SGOT) 23 U/L (15-37); Alanine Aminotransfer ALT/SGPT 44 U/L (13-56); Albumin, Serum 4.1 g/dL (3.2-5.0); Alkaline Phosphatase 53 U/L (45-117); Anion Gap 5 (5-15); BUN 14 mg/dL (7-18); BUN/Creat Ratio 17.1 RATIO (10-20); Calcium,Total 9.2 mg/dL (8.5-10.1); Chloride 105 mmol/L (98-107); Cholesterol 148 mg/dL (200); Creatinine, Serum 0.82 mg/dL (0.55-1.02); EST Glomerular Filtration Rate 82 mL/min (>60); Est Glom Filt Rate - Afr Amer 99 mL/min (>60); Globulin 3.7 g/dL (2.2-4.2); Glucose 102 mg/dL (74-106); High Density Lipoprotein 56 mg/dL; Potassium 4.1 mmol/L (3.5-5.1); Protein, Total 7.8 g/dL (6.4-8.2); Sodium Level 138 mmol/L (136-145); Triglycerides 168 mg/dL; Very Low Density Lipoprotein 34 mg/dL (5-40)
== END | disposition home or self-care (01) ==
LOC: BIMLAB 13:40
PROVIDERS: PCP Internal Medicine; Referring Provider Internal Medicine; Visit Provider Internal Medicine
DX: E78.2 Mixed hyperlipidemia (principal)
CPT/HCPCS: 36415; 80053; 80061; 85025

== ENCOUNTER → 2023-08-22 | Outpatient (CLI) | payer OTHER, SELFPAY ==
--- NOTE | 2023-08-22 15:01 | BI_ITS ---
MAMMOGRAPHY - BILATERAL SCREENING 3-D TOMOSYNTHESIS REASON FOR EXAM: Female, 38 years old. Routine annual screening mammogram. PERTINENT HISTORY: No significant family history. TECHNIQUE: 2-D mammograms and 3-D Tomosynthesis of the breast (s) were performed. CAD was performed. COMPARISON: August 08, 2022 FINDINGS: The breast composition is heterogeneously dense that can obscure small breast masses. Scattered benign calcifications stable. No dominant masses, suspicious microcalcifications, asymmetries, skin thickening or nipple retraction. BI/SCRN MAMM (CAD)W/MU BILAT IMPRESSION: No interval change and no mammographic signs of malignancy. Routine yearly mammogram recommended. ASSESSMENT CATEGORY: BIRADS Category 2: Benign. A letter regarding these results will be sent to the patient by the facility within 30 days. FOLLOW UP RECOMMENDATION: Yearly follow up mammogram recommended. (A) Approximately 10% of breast cancers are not detected by mammography. A normal mammogram should not delay biopsy of a clinically suspicious abnormality. Electronically Signed: Leon Moody MD at 15:57 EST ,
== END | disposition home or self-care (01) ==
LOC: OPBI 15:00
PROVIDERS: PCP Internal Medicine; Referring Provider Nurse Practitioner Women's Health; Visit Provider Nurse Practitioner Women's Health
DX: Z12.31 Encounter for screening mammogram for malignant neoplasm of breast (principal)
CPT/HCPCS: 77063; 77067

== ENCOUNTER 2023-10-21 12:35 | Emergency (ER) | payer OTHER, SELFPAY ==
[2023-10-21 12:35] VITALS: BP 174/112; PULSE 120; RESP 18; TEMP 36.1; O2SAT 100; BMI 28.5
--- NOTE | 2023-10-21 12:48 | ED.RN ---
previous chest pain this am but denies now
--- NOTE | 2023-10-21 12:56 | EDS_ITS ---
HPI HPI - GI History of Present Illness Chief Complaint: Foreign Body Detail of Chief Complaint: Subjective feeling of possible foreign body in her esophagus. Informant: patient Abdominal Pain/Flank Pain Onset: Days Context: Gradual Onset Timing: Continuous Current Severity: Mild Maximum Severity: Mild Nausea/Vomiting/Emesis GI Symptom: Negative for Nausea or Vomiting Diarrhea/Melena/Hematochezia GI Symptom: Negative for Diarrhea, Melena or Hematochezia Associated Symptoms Associated Symptoms: Negative for Dysuria or Frequency Narrative Narrative: 38-year-old female with past medical history of hypertension high cholesterol. Since his last Saturday when she swallows she feels like there may be something in her esophagus. She is able to swallow food. She has had no nausea or vomiting. No pain. Similar episode a year ago and when he did x-rays he could not find anything. She denies any surgeries to her throat trachea nor esophagus. She did denies any problems swallowing food or liquids or any trouble breathing and no wheezing. Prior similar symptoms: Yes Recent Illness/Hospitalization: No PFSH PFSH Medical History Dry skin dermatitis Frequent headaches Hyperlipidemia Hypokalemia Seasonal allergies Home Medications acetaminophen 325 mg capsule (Tylenol) 650 mg PO ONCE PRN 03/15/20 [History Last Taken Unknown] blood pressure monitor #1 ea 03/23/20 [Rx Last Taken Unknown] loperamide 2 mg capsule (Imodium A-D) 2 mg PO Q6H PRN 07/26/20 [History Last Taken Unknown] sumatriptan succinate 25 mg tablet See Rx Instructions PO .COMPLEX #14 tabs 02/09/21 [Rx Last Taken Unknown] losartan 25 mg tablet 25 mg PO DAILY #90 tabs 12/24/22 [Rx Last Taken Unknown] triamterene 37.5 mg-hydrochlorothiazide 25 mg tablet 1 tab PO QAM #90 tabs 12/24/22 [Rx Last Taken Unknown] potassium chloride 20 mEq tablet,extended release 20 meq PO BID #90 tabs 07/12/23 [Rx Last Taken Unknown] rosuvastatin 10 mg tablet 10 mg PO DAILY #90 tabs 09/23/23 [Rx Last Taken Unknown] Allergy/AdvReac Type Severity Reaction Status Date / Time Penicillins Allergy Intermediate hives Verified 10/21/23 12:37 soap Allergy Hives Verified 10/21/23 12:37 strawberry Allergy Hives Verified 10/21/23 12:37 Family History Mother Myocardial infarction, Onset Age: 45 Hypertension Thyroid disorder Osteoporosis Father Hyperlipemia Hypertension Grandmother Myocardial infarction, Onset Age: 48 Hypertension Thyroid disorder Surgical History History of tonsillectomy Social History household members: other details: mom current occupational status: employed current occupation: [employer] @ [employer] history of recent travel: No sexually active: Yes Smoking Status: Never smoker alcohol intake: never substance use type: does not use what type of physical activity do you participate in: walking seatbelt use: always do you feel safe at home: Yes additional social history: boyfriend ROS ROS ED ROS Narrative Denies any recent illness. No fever. No sore throat. No pain with swallowing. Review of Systems ROS Unobtainable: Denies due to encephalopathy Constitutional Constitutional ED: Denies chills or fever(s) ENT ENT ED: Denies ear pain Cardiovascular Cardiovascular: Denies chest pain Respiratory/Chest Respiratory/Chest: Denies cough or dyspnea Gastrointestinal Gastrointestinal: Denies abdominal pain Genitourinary Genitourinary ED: Denies dysuria or hematuria Musculoskeletal Musculoskeletal: Denies arthralgias or back pain Integumentary Denies abscess or Abrasions Neurologic Neurologic: Denies headache(s) Psychiatric Psychiatric: Denies anxiety Endocrine Endocrinology: Denies polydipsia Hematologic/Lymphatic Hematologic/Lymphatic: Denies easy bleeding Allergic/Immunologic Allergic/Immunologic ED: Denies mouth swelling, tongue swelling or urticaria EXAM Physical Exam Narrative Exam Narrative: 38-year-old female no acute distress vital signs stable afebrile. Pulse ox high percent room air. H EENT exam normal posteriorly. No trouble swallowing or breathing. Gave her a glass of water she drank without any difficulty. Neck nontender trachea tenderness. No lymphadenopathy or mass. Lungs clear to auscultation bilaterally. No wheezing. Heart regular rhythm rate about 90 no murmur. Chest wall and ribs nontender. Abdomen soft nontender. Moving all 4 extremities. Normal motor strength. No edema. Neurologically she is awake and alert with no focal motor deficits. Const Vital Signs: 10/21/23 12:35 10/21/23 12:43 10/21/23 12:59 Temperature 97 F L Temperature Source Temporal Pulse Rate 120 H 98 Respiratory Rate 18 Respiratory Effort Normal Non-Labored Respiratory Pattern Normal Blood Pressure 174/112 H 143/98 H Blood Pressure Mean 132 113 Pulse Ox 100 Oxygen Delivery Method Room Air Positive well nourished and well developed; Negative for cachectic, contractures or unkempt General Appearance ED: well developed and NAD; Negative for unkempt, cachectic, contractures or pallor Nutritional Appearance: Negative for cachectic HEENT Reports moist mucous membranes normocephalic and atraumatic; Negative for trauma or tenderness Eyes PERRL and EOMs intact bilaterally General Eye ED: Negative for pale conjunctiva Neck no lymphadenopathy, supple and no JVD General: Negative for tenderness Carotids: Negative for other Lymph Lymphatic: other Resp normal respiratory effort and clear to auscultation bilaterally Effort and Inspection: Negative for respiratory distress Auscultation: Negative for rales, rhonchi or wheezes Cardio regular rate, regular rhythm, S1 normal heart sound, S2 normal heart sound and no murmurs Rate: Negative for tachycardic Rhythm: Negative for abnormal rhythm GI non-tender, non-distended and no masses Inspection: Negative for abdominal distention Auscultation: normoactive bowel sounds Palpation: soft; Negative for tender, guarding or rebound tenderness present Back/Spine no CVA tenderness Extremity full ROM General Extremety ED: Negative for edema or tenderness General Extremity: Negative for edema Neuro CN's II-XII intact bilaterally Sensorium / Orientation: alert, oriented to person, oriented to place and oriented to time; Negative for orientation impaired, confused, lethargic or stuporous Motor Exam: strength 5/5 throughout Psych mental status grossly normal and thought process normal Appearance: Negative for unkempt Attitude: No agitated Mood & Affect: Negative for depressed, anxious or tearful Skin no wounds General Skin Exam: Negative for jaundice or pallor Rashes: no rashes Trauma: Negative for abrasion Nails: Negative for discolored MDM MDM MDM Narrative Medical decision making narrative: 38-year-old with sensation of possible foreign body when she swallows. But no trouble swallowing or breathing. I gave her a glass of water she drank without any difficulty. Prior history of same with no finding. Did x-ray of her knee and soft tissue of her neck there is no foreign body noted or significant swelling. She will be discharged home. History & Record Review Discussion w/independent historian: Patient Additional record(s) reviewed:: Prior inpatient record, Prior outpatient record, Prior ED visit and Prior labs Radiography Diagnostic Testing: Soft tissue neck 2 views interpreted by myself shows no acute abnormality. No significant swelling. No foreign body. Airway patent. Discharge Plan Triage Chief Complaint: Foreign Body ED Provider: Anurag Lau Dx/Rx/DC Orders Clinical Impression: Feared complaint without diagnosis, No foreign body found on evaluation Prescriptions: No Action (DME) blood pressure monitor Kit See Rx Instructions .ROUTE .MEDSUPPLY Qty: 1 0RF Rx Instructions: Check blood pressure daily for hypertension I10 acetaminophen [Tylenol] 325 mg capsule 650 mg PO ONCE PRN loperamide [Imodium A-D] 2 mg capsule 2 mg PO Q6H PRN losartan 25 mg tablet 25 mg PO DAILY Qty: 90 3RF triamterene-hydrochlorothiazid 37.5-25 mg tablet 1 tab PO QAM Qty: 90 3RF sumatriptan succinate 25 mg tablet See Rx Instructions PO .COMPLEX Qty: 14 0RF Rx Instructions: take 1 tab at onset of headache; if no relief may repeat 1 tab after at least 2 hrs; max = 4 tabs/24 hr PO potassium chloride 20 mEq tablet extended release 20 meq PO BID Qty: 90 3RF Hold Instructions: Home Medication placed on hold at Doctor's office rosuvastatin 10 mg tablet 10 mg PO DAILY Qty: 90 1RF Primary Care Provider: Eloy Gonzalez Referrals: Eloy Gonzalez MD [Primary Care Provider] - As Needed Activity Restrictions/Additional Instructions: No signs of any foreign body or infection.Your x-ray and exam is normal. Follow-up with your doctor if not improving. Disposition Disposition: Home, Self Care
[2023-10-21 12:59] VITALS: BP 143/98; PULSE 98
--- NOTE | 2023-10-21 13:00 | RAD_ITS ---
EXAM: XR SOFT TISSUE NECK CLINICAL INDICATION: possible foreign body TECHNIQUE: Frontal and lateral views of the soft tissues of the neck. COMPARISON: No relevant prior studies available. FINDINGS: AIRWAY: Normal. RETROPHARYNGEAL SPACE: Normal. BONES/JOINTS: No acute fracture or subluxation. Congenital fusion of C2 and C3. SOFT TISSUES: Nuchal calcification noted related to remote trauma. No radiopaque foreign body. Normal epiglottis. OTHER FINDINGS: RAD/Neck for Soft Tissue IMPRESSION: No acute findings in the neck. Electronically Signed: Chris Larson MD at 13:27 EST ,
[2023-10-21 13:24] VITALS: BP 127/94; PULSE 92; RESP 18; TEMP 36.6; O2SAT 98
== END 2023-10-21 13:26 | disposition home or self-care (01) ==
PROVIDERS: Emergency Provider Emergency Medicine; PCP Internal Medicine; Visit Provider Emergency Medicine
DX: Z71.1 Person with feared health complaint in whom no diagnosis is made (principal); E78.00 Pure hypercholesterolemia, unspecified; I10 Essential (primary) hypertension
CPT/HCPCS: 70360; 99282

== ENCOUNTER 2023-10-23 18:36 | Emergency (ER) | payer OTHER, SELFPAY ==
[2023-10-23 18:37] VITALS: BP 176/110; PULSE 95; RESP 18; TEMP 36.4; O2SAT 100
[2023-10-23 18:43] VITALS: BMI 29.7
--- NOTE | 2023-10-23 18:56 | EKG12_ITS ---
Test Reason : CP Blood Pressure : / mmHG Vent. Rate : 096 BPM Atrial Rate : 096 BPM P-R Int : 136 ms QRS Dur : 084 ms QT Int : 356 ms P-R-T Axes : 023 013 041 degrees QTc Int : 449 ms Normal sinus rhythm Normal ECG Confirmed by RON GALVEZ, RODRIGO ([id number]), desk editor ANIL DARLING ([id number]) on 10/28/2023 9:30:21 AM Referred By: DAVID Confirmed By:EARNEST VELASQUEZ MD
--- NOTE | 2023-10-23 18:57 | EDS_ITS ---
HPI History of Present Illness Chief Complaint: Numb/Ting Detail of Chief Complaint: Numbness and tingling in legs x 1 week, chest pain today. Narrative Narrative: Patient presents with numbness and tingling in her lower extremities for the past week. She states the right leg seems to be affected more and is just distal to her knee. She states that the left leg is just over the [place] area. She describes it as a sensation of standing and walking but not being able to feel anything. She denies history of diabetes or neuropathy. No back pain or recent injury. Today she started having intermittent sharp stabbing chest pain in the left chest. She states symptoms last about 5 minutes and then resolved. [facility] Medical History (Updated 10/23/23 @ 19:[address] Taylor Araiza MD) Dry skin dermatitis Hyperlipidemia Hypertension Hypokalemia Migraine Seasonal allergies Home Medications acetaminophen 325 mg capsule (Tylenol) 650 mg PO ONCE PRN 03/15/20 [History Last Taken Unknown] blood pressure monitor #1 ea 03/23/20 [Rx Last Taken Unknown] loperamide 2 mg capsule (Imodium A-D) 2 mg PO Q6H PRN 07/26/20 [History Last Ta smiley Unknown] sumatriptan succinate 25 mg tablet See Rx Instructions PO .COMPLEX #14 tabs 02/09/21 [Rx Last Taken Unknown] losartan 25 mg tablet 25 mg PO DAILY #90 tabs 12/24/22 [Rx Last Taken Unknown] triamterene 37.5 mg-hydrochlorothiazide 25 mg tablet 1 tab PO QAM #90 tabs 12/24/22 [Rx Last Taken Unknown] rosuvastatin 10 mg tablet 10 mg PO DAILY #90 tabs 09/23/23 [Rx Last Taken Unknown] potassium chloride 20 mEq tablet,extended release(part/cryst) 20 meq PO BID #60 tabs 10/22/23 [Rx Last Taken Unknown] Allergy/AdvReac Type Severity Reaction Status Date / Time Penicillins Allergy Intermediate hives Verified 10/23/23 18:38 soap Allergy Hives Verified 10/23/23 18:38 strawberry Allergy Hives Verified 10/23/23 18:38 Family History Mother Myocardial infarction, Onset Age: 45 Hypertension Thyroid disorder Osteoporosis Father Hyperlipemia Hypertension Grandmother Myocardial infarction, Onset Age: 48 Hypertension Thyroid disorder Surgical History History of tonsillectomy Social History household members: other details: mom current occupational status: employed current occupation: [employer] history of recent travel: No sexually active: Yes Smoking Status: Never smoker alcohol intake: never substance use type: does not use what type of physical activity do you participate in: walking seatbelt use: always do you feel safe at home: Yes additional social history: boyfriend ROS ROS ED Constitutional Constitutional ED: Denies chills or fever(s) Eyes Eyes: Denies discharge from eye(s) ENT ENT ED: Denies discharge from eye(s), rhinorrhea or sore throat Cardiovascular Cardiovascular: Reports chest pain; Denies palpitations Respiratory/Chest Respiratory/Chest: Denies cough or dyspnea Gastrointestinal Gastrointestinal: Denies abdominal pain, diarrhea, nausea or vomiting Genitourinary Genitourinary ED: Denies difficulty urinating or dysuria Musculoskeletal Musculoskeletal: Denies back pain or extremity pain Integumentary Denies Abrasions or rash Neurologic Neurologic: Reports paresthesias RLE and LLE; Denies headache(s) or weakness Psychiatric Psychiatric: Denies anxiety or depression Allergic/Immunologic Allergic/Immunologic ED: Denies lip swelling or urticaria EXAM Physical Exam Const Vital Signs: 10/23/23 18:37 10/23/23 18:44 10/23/23 19:05 Temperature 97.6 F L Temperature Source Temporal Pulse Rate 95 Respiratory Rate 18 Respiratory Effort Normal Blood Pressure 176/110 H Blood Pressure Mean 132 Pulse Ox 100 99 Oxygen Delivery Method Room Air Room Air Positive well nourished and well developed General Appearance ED: well developed HEENT Reports moist mucous membranes Eyes EOMs intact bilaterally Chest Wall inspection of chest normal and palpation of chest normal Resp normal respiratory effort and clear to auscultation bilaterally Cardio regular rate and regular rhythm GI non-tender Palpation: soft Extremity Extremity Narrative: Patient reports decreased sensation to light touch over the lower extremities. Good distal pulses. Good strength on testing. Neuro oriented x3 Motor Exam: strength 5/5 throughout Psych mental status grossly normal Skin no rashes or lesions noted MDM MDM MDM Narrative Medical decision making narrative: Patient placed on environmental monitoring technician. EKG obtained to evaluate for cardiac arrhythmia/ischemia. Chest x-ray obtained to evaluate for acute lung pathology, cardiac size, or mediastinal abnormality. IV line established. Labwork obtained to evaluate for leukocytosis, anemia, and electrolyte derangement. Lab Data Attestation: I reviewed the patient's lab results. Labs: Laboratory Results - last 24 hr 10/23/23 19:03 WBC 9.8 RBC 5.07 Hgb 15.1 H Hct 45.4 MCV 89.5 MCH 29.8 MCHC 33.3 RDW Std Deviation 38.3 RDW Coeff of [place] 11.9 Plt Count 270 MPV 10.3 Immature Gran % (Auto) 0.400 Neut % (Auto) 70.4 H Lymph % (Auto) 18.5 L [place] % (Auto) 8.6 Eos % (Auto) 1.4 Baso % (Auto) 0.7 Absolute Neuts (auto) 6.9 Absolute Lymphs (auto) 1.81 Nucleated RBC % 0 D-Dimer Quant (PE/DVT) < 0.27 L Sodium 138 Potassium 3.0 L Chloride 104 Carbon Dioxide 29.0 Anion Gap 5 BUN 10 Creatinine 0.79 Estim Creat Clear Calc 99.59 Est GFR (MDRD) Af Amer 104 Est GFR (MDRD) Non-Af 86 BUN/Creatinine Ratio 12.7 Glucose 92 Calcium 9.4 Magnesium 2.1 Troponin I High Sens 4 Serum , Qual NEGATIVE Radiography Chest X-Ray - ED: 1 View, Read by ED Physician, Normal, Heart, Lungs and Mediastinum Diagnostic Testing: Clinical Impression(s) from Imaging Studies Chest X-Ray 10/23/23 19:13 IMPRESSION: No radiographic evidence of acute cardiopulmonary disease. Electronically Signed: Shereen Alex MD at 19:22 EST , EKG Initial EKG: Attestation: I personally reviewed and interpreted this EKG as follows: Interpretation: Sinus Rhythm (Sinus at 96 with no acute ischemia.) Treatment and Re-Evaluation :: CBC reveals normal white count 9.8 with normal differential. Hemoglobin is 15.1. Chemistry studies largely unremarkable with normal renal function. Her potassium, however, is low at 3.0. D-dimer is less than 0.27 and troponin is normal at 4. test negative. Portable chest x-ray per my interpretation reveals no acute abnormality. Radiology interpretation reviewed and agrees. EKG is sinus rhythm with no acute ischemia. Patient has a history of hypokalemia. She is currently on 20 mEq of potassium twice a day. I will give her 40 mEq of potassium here. For the next 4 days I asked her to take 40 mEq of potassium twice daily. She needs to have her potassium level rechecked in 1 week. Patient is comfortable with the plan. Return instructions given. Discharge Plan Triage Chief Complaint: Numb/Ting ED Provider: Taylor Araiza Dx/Rx/DC Orders Clinical Impression: Paresthesias, Chest pain, Hypokalemia Instructions: ED Chest Pain, Uncertain Cause, ED Hypokalemia, ED Paraesthesias Prescriptions: No Action (DME) blood pressure monitor Kit See Rx Instructions .ROUTE .MEDSUPPLY Qty: 1 0RF Rx Instructions: Check blood pressure daily for hypertension I10 acetaminophen [Tylenol] 325 mg capsule 650 mg PO ONCE PRN loperamide [Imodium A-D] 2 mg capsule 2 mg PO Q6H PRN losartan 25 mg tablet 25 mg PO DAILY Qty: 90 3RF triamterene-hydrochlorothiazid 37.5-25 mg tablet 1 tab PO QAM Qty: 90 3RF sumatriptan succinate 25 mg tablet See Rx Instructions PO .COMPLEX Qty: 14 0RF Rx Instructions: take 1 tab at onset of headache; if no relief may repeat 1 tab after at least 2 hrs; max = 4 tabs/24 hr PO rosuvastatin 10 mg tablet 10 mg PO DAILY Qty: 90 1RF potassium chloride 20 mEq tablet,ER particles/crystals 20 meq PO BID Qty: 60 1RF Primary Care Provider: Eloy Gonzalez Referrals: Eloy Gonzalez MD [Primary Care Provider] - 1 Week Activity Restrictions/Additional Instructions: As discussed, please take 40 mEq of potassium twice a day for the next 4 days. Please have your potassium level rechecked in 1 week. Disposition Disposition: Home, Self Care
[2023-10-23 19:05] VITALS: O2SAT 99
[2023-10-23] MEDS: 0.9% Normal Saline (1000mL) 1,000 ML 150 ML IV (19:10)
[2023-10-23] MEDS: Aspirin 81 MG TAB.CHEW 324 MG PO (19:10)
--- NOTE | 2023-10-23 19:13 | RAD_ITS ---
INDICATION: chest pain EXAMINATION/TECHNIQUE: X-RAY - XR Chest 1 View COMPARISON: No relevant prior comparison study available FINDINGS: LINES/DEVICES: None. LUNGS: No consolidation, edema or effusion. No pneumothorax. MEDIASTINUM AND CARDIOVASCULAR STRUCTURES: Cardiac silhouette not enlarged. Central airways and mediastinal contour are unremarkable. BONES AND SOFT TISSUES: Unremarkable. RAD/Chest 1 View (Portable) IMPRESSION: No radiographic evidence of acute cardiopulmonary disease. Electronically Signed: Shereen Alex MD at 19:22 EST ,
[2023-10-23 19:15] LABS: Absolute Lymphocyte Count 1.81 X10^3/uL (0.83-4.51); Absolute Neutrophil Count 6.9 X10^3/uL (2.0-7.7); Basophil# 0.07 X10^3/uL; Basophil% 0.7 % (0-1); Eosinophil# 0.14 X10^3/uL; Eosinophils% 1.4 % (0-5); Hematocrit 45.4 % (37-47); Hemoglobin 15.1 g/dL (12.0-15.0); Lymphocyte # 1.81 X10^3/ul (0.83-4.51); Lymphocyte % 18.5 % (19-41); Mean Corp Hgb Conc 33.3 g/dL (32-36); Mean Corpuscular Hgb 29.8 pg (27.0-32.0); Mean Corpuscular Volume 89.5 fL (81-99); Mean Platelet Vol. 10.3 fl (6.2-12.0); Monocyte# 0.84 X10^3/uL; Monocyte% 8.6 % (0-10); NRBC Flagged by Analyzer 0 % (0-5); Neutrophil # 6.87 X10^3/uL (2.7-7.7); Neutrophil % 70.4 % (47-70); Platelet Count 270 K/mm3 (150-450); RBC Distribution Width CV 11.9 % (11.6-14.6); RBC Distribution Width SD 38.3 fl (35.1-43.9); Red Blood Count 5.07 M/mm3 (4.2-5.4); White Blood Count 9.8 K/mm3 (4.4-11.0)
[2023-10-23 19:25] LABS: D-Dimer Quantitative (DVT/PE) < 0.27 FEU/ug/m (0.27-0.49)
[2023-10-23 19:26] LABS: Internal QC Validated? YES +Cl - CLEAR BKGD; Pregnancy, Serum, hCG Quali. NEGATIVE Negative
[2023-10-23 19:34] LABS: Anion Gap 5 (5-15); BUN 10 mg/dL (7-18); BUN/Creat Ratio 12.7 RATIO (10-20); Calcium,Total 9.4 mg/dL (8.5-10.1); Chloride 104 mmol/L (98-107); Creatinine, Serum 0.79 mg/dL (0.55-1.02); EST Glomerular Filtration Rate 86 mL/min (>60); Est Glom Filt Rate - Afr Amer 104 mL/min (>60); Estimated Creatinine Clearance 99.59 ml/min; Glucose 92 mg/dL (74-106); Magnesium 2.1 mg/dL (1.6-2.6); Sodium Level 138 mmol/L (136-145); Troponin-I HS 4 pg/mL (3.0-54.0)
[2023-10-23] MEDS: Potassium Chloride Oral Tablet 20 MEQ 40 MEQ PO (19:51)
[2023-10-23 19:53] VITALS: BP 117/94; PULSE 74; RESP 16; TEMP 36.7; O2SAT 99
== END 2023-10-23 19:55 | disposition home or self-care (01) ==
PROVIDERS: Emergency Provider Emergency Medicine; PCP Internal Medicine; Visit Provider Emergency Medicine
DX: R20.2 Paresthesia of skin (principal); R07.9 Chest pain, unspecified; E87.6 Hypokalemia
CPT/HCPCS: 71045; 80048; 83735; 84484; 84703; 85025; 85379; 93005; 99285; A4216

== ENCOUNTER → 2023-11-07 | Outpatient (CLI) | payer OTHER, SELFPAY ==
[2023-11-07 17:06] LABS: Anion Gap 8 (5-15); BUN 11 mg/dL (7-18); BUN/Creat Ratio 13.2 RATIO (10-20); Calcium,Total 9.1 mg/dL (8.5-10.1); Chloride 104 mmol/L (98-107); Creatinine, Serum 0.84 mg/dL (0.55-1.02); EST Glomerular Filtration Rate 80 mL/min (>60); Est Glom Filt Rate - Afr Amer 97 mL/min (>60); Glucose 106 mg/dL (74-106); Potassium 3.5 mmol/L (3.5-5.1); Sodium Level 139 mmol/L (136-145)
== END | disposition home or self-care (01) ==
LOC: BIMLAB 15:13
PROVIDERS: PCP Internal Medicine; Visit Provider Internal Medicine
DX: E87.6 Hypokalemia (principal)
CPT/HCPCS: 36415; 80048

== ENCOUNTER → 2024-06-10 | Outpatient (CLI) | payer OTHER, SELFPAY ==
[2024-06-10 15:42] LABS: Anion Gap 6 (5-15); BUN 13 mg/dL (7-18); BUN/Creat Ratio 15.6 RATIO (10-20); Calcium,Total 9.6 mg/dL (8.5-10.1); Chloride 104 mmol/L (98-107); Creatinine, Serum 0.84 mg/dL (0.55-1.02); EST Glomerular Filtration Rate 80 mL/min (>60); Est Glom Filt Rate - Afr Amer 97 mL/min (>60); Glucose 95 mg/dL (74-106); Potassium 4.2 mmol/L (3.5-5.1); Sodium Level 140 mmol/L (136-145)
== END | disposition home or self-care (01) ==
LOC: BIMLAB 11:27
PROVIDERS: PCP Internal Medicine; Referring Provider Internal Medicine; Visit Provider Internal Medicine
DX: I10 Essential (primary) hypertension (principal)
CPT/HCPCS: 36415; 80048

== ENCOUNTER 2024-07-24 11:00 | Outpatient (RCR) | payer OTHER, SELFPAY | END 2024-07-24 19:00 | disposition home or self-care (01) | LOC: PT 11:00 | PROVIDERS: PCP Internal Medicine; Referring Provider Orthopaedic Surgery Sports Medicine; Visit Provider Orthopaedic Surgery Sports Medicine | DX: M25.522 Pain in left elbow (principal); M77.8 Other enthesopathies, not elsewhere classified | CPT/HCPCS: 97110; 97162; 97530 ==

== ENCOUNTER → 2024-08-03 | Outpatient (CLI) | payer OTHER, SELFPAY ==
[2024-08-05 07:07] LABS: Chlamydia By Nucleic Acid AMP Negative (Negative); Gonococcus By Nucleic Acid AMP Negative (Negative)
== END | disposition home or self-care (01) ==
LOC: LABSPEC 11:19
PROVIDERS: PCP Internal Medicine; Referring Provider Nurse Practitioner Women's Health; Visit Provider Nurse Practitioner Women's Health
DX: Z11.3 Encounter for screening for infections with a predominantly sexual mode of transmission (principal)
CPT/HCPCS: 87491; 87591

== ENCOUNTER → 2024-09-16 | Outpatient (CLI) | payer OTHER, SELFPAY ==
[2024-09-16 12:28] LABS: Absolute Lymphocyte Count 1.59 X10^3/uL (0.83-4.51); Absolute Neutrophil Count 5.8 X10^3/uL (2.0-7.7); Basophil# 0.05 X10^3/uL; Basophil% 0.6 % (0-1); Eosinophils% 1.2 % (0-5); Hematocrit 45.4 % (37-47); Hemoglobin 14.8 g/dL (12.0-15.0); Lymphocyte # 1.59 X10^3/ul (0.83-4.51); Lymphocyte % 19.5 % (19-41); Mean Corp Hgb Conc 32.6 g/dL (32-36); Mean Corpuscular Hgb 29.8 pg (27.0-32.0); Mean Corpuscular Volume 91.5 fL (81-99); Mean Platelet Vol. 11.1 fl (6.2-12.0); Monocyte# 0.58 X10^3/uL; Monocyte% 7.1 % (0-10); NRBC Flagged by Analyzer 0 % (0-5); Neutrophil # 5.82 X10^3/uL (2.7-7.7); Neutrophil % 71.2 % (47-70); Platelet Count 288 K/mm3 (150-450); RBC Distribution Width CV 12.1 % (11.6-14.6); RBC Distribution Width SD 40.3 fl (35.1-43.9); Red Blood Count 4.96 M/mm3 (4.2-5.4); White Blood Count 8.2 K/mm3 (4.4-11.0)
[2024-09-16 13:11] LABS: ALB/GLOB Ratio 1.1 RATIO (0.9-2.4); AST(SGOT) 10 U/L (15-37); Alanine Aminotransfer ALT/SGPT 23 U/L (13-56); Alkaline Phosphatase 54 U/L (45-117); Anion Gap 5 (5-15); BUN 12 mg/dL (7-18); BUN/Creat Ratio 15.2 RATIO (10-20); Calcium,Total 9.5 mg/dL (8.5-10.1); Chloride 103 mmol/L (98-107); Cholesterol 116 mg/dL (200); Creatinine, Serum 0.79 mg/dL (0.55-1.02); EST Glomerular Filtration Rate 85 mL/min (>60); Est Glom Filt Rate - Afr Amer 103 mL/min (>60); Globulin 3.6 g/dL (2.2-4.2); Glucose 90 mg/dL (74-106); High Density Lipoprotein 51 mg/dL; Potassium 3.8 mmol/L (3.5-5.1); Protein, Total 7.6 g/dL (6.4-8.2); Sodium Level 137 mmol/L (136-145); Triglycerides 182 mg/dL; Very Low Density Lipoprotein 36 mg/dL (5-40)
== END | disposition home or self-care (01) ==
LOC: BIMLAB 10:59
PROVIDERS: PCP Internal Medicine; Referring Provider Internal Medicine; Visit Provider Internal Medicine
DX: Z00.00 Encounter for general adult medical examination without abnormal findings (principal)
CPT/HCPCS: 36415; 80053; 80061; 85025

== ENCOUNTER → 2025-08-04 | Outpatient (CLI) | payer OTHER, SELFPAY ==
--- OUTSIDE RECORDS SUMMARY | 2025-08-04 12:03 | XMS RPT_ITS | CCD ---
Author Organization [facility] Care Team Providers Care Aquaculture Program Director Name Role Phone Dr. Eloy Gonzalez Primary Care Provider 1(33 0) Carlos, Dr. Lyons Referring Provider [phone])2 Paul INSPECTOR TECHNICIAN, DOROTHY-Patrick Cast Attending Provider 1(330 ) Dr. Eloy Gonzalez Attending Provider 1(330)2 Dr. Eloy Gonzalez Primary Care Provider 1(33 0) Dr. Eloy Gonzalez Attending Provider 1(330)2 Carlos, Dr. Lyons Referring Provider 1(330)2 Dr. Eloy Gonzalez Primary Care Provider 1(33 0) Carlos, Dr. Lyons Attending Provider 1(330)2 Dr. Eloy Gonzalez Referring Provider 1(330)2 Dr. Eloy Gonzalez Primary Care Provider 1(33 0) Dr. Eloy Gonzalez Referring Provider 1(330)2 Paul INSPECTOR TECHNICIANDOROTHY-Patrick Cast Attending Provider 1(330 ) Dr. Eloy Gonzalez Attending Provider 1(330)2 Dr. Eloy Gonzalez Primary Care Provider 1(33 0) Dr. Eloy Gonzalez Attending Provider 1(330)2 Carlos, Dr. Lyons Referring Provider 1(330)2 Dr. Eloy Gonzalez Primary Care Provider 1(33 0) Oleghe, Dr. Lyons Attending Provider 1(330)2 Carlos, Dr. Lyons Referring Provider 1(330)2 Carlos, Dr. Lyons Primary Care Provider 1(33 0) Carlos, Dr. Lyons Attending Provider 1(330)2 Dr. Eloy Gonzalez Referring Provider 1(330)2 Paul INSPECTOR TECHNICIAN, INSPECTOR TECHNICIAN-C Serene Attending Provider 1(330 ) Carlos, Dr. Lyons Referring Provider 1(330)2 Carlos, Dr. Lyons Attending Provider 1(330)2 Carlos, Dr. Lyons Referring Provider 1(330)2 Paul INSPECTOR TECHNICIAN, INSPECTOR TECHNICIAN-C Serene Attending Provider 1(330 ) Carlos, Dr. Lyons Attending Provider 1(330)2 Carlos, Dr. Lyons Primary Care Provider 1(33 0) Carlos GALVEZ, Dr. Lyons Primary Care Provider Carlos GALVEZ, Dr. Lyons Attending Provider 1(33 0) Carlos GALVEZ, Dr. Lyons Referring Provider 1(33 0) Oleghe, Efewongbe Referring Unavailable Oleghe, Efewongbe Attending Unavailable Oleghe, Efewongbe Primary Care Unavailable Oleghe, Efewongbe Primary Care Unavailable Oleghe, Efewongbe Attending Unavailable Oleghe, Efewongbe Referring Unavailable Oleghe, Efewongbe Primary Care Unavailable Oleghe, Efewongbe Attending Unavailable Oleghe, Efewongbe Referring Unavailable Paul INSPECTOR TECHNICIAN, Serene Attending Unavailable Oleghe, Efewongbe Primary Care Unavailable Oleghe, Efewongbe Referring Unavailable Felipa, Adrián Attending Unavailable Oleghe, Efewongbe Primary Care Unavailable Oleghe, Efewongbe Primary Care Unavailable Topher Santos Attending Unavailable Oleghe, Efewongbe Referring Unavailable Oleghe, Efewongbe Primary Care Unavailable Topher Santos Attending Unavailable Topher Santos Referring Unavailable Oleghe, Efewongbe Referring Unavailable Oleghe, Efewongbe Primary Care Unavailable Oleghe, Efewongbe Attending Unavailable Oleghe, Efewongbe Primary Care Unavailable Oleghe, Efewongbe Attending Unavailable Oleghe, Efewongbe Referring Unavailable Paul INSPECTOR TECHNICIANSerene Attending Unavailable Paul INSPECTOR TECHNICIAN, Serene Referring Unavailable Oleghe, Efewongbe Primary Care Unavailable Allergies Allergy Classification Reported Allergen(s) Allergy Type Date of Onset Reaction(s) Facility (14 sources) Penicillins; Translations: [Penicillins] Allergy to substance 11-10-2021 [facility] (3 sources) [place] Allergy to substance 08-09-2021 [facility] Work Phone: (3 sources) laundry detergents Allergy to substance 08-09-2021 [facility] Work Phone: (10 sources) strawberry allergenic extract Drug Allergy 07-30-2022 [facility] (11 sources) soap; Translations: [soap] Allergy to substance 07-30-2022 [facility] Comment on above: LAUNDRY DETERGENTS (1 source) strawberry allergenic extract Drug Allergy 04-29-2025 [facility] Repository Medications Current Medications Medication Drug Class(es) Dates Sig (Normalized) Sig (Original) acetaminophen 325 mg oral capsule (13 sources) Start: 03-15-2020 take 2 capsules by mouth once as needed Acetaminophen (Tylenol) 325 mg capsule Active 650 mg PO ONCE as needed March 15, 2020 12:00am Blood Pressure Monitor (12 sources) Start: 03-23-2020 Blood Pressure Monitor Active 0 .ROUTE .MEDSUPPLY March 23, 2020 11:34am Check blood pressure daily for hypertension I10 Start: 03-23-2020 Blood Pressure Monitor Active 0 .ROUTE .MEDSUPPLY March 22, 2020 11:00pm Check blood pressure daily for hypertension I10 Start: 03-23-2020 Blood Pressure Monitor Active 0 .ROUTE .MEDSUPPLY March 23, 2020 12:00am Check blood pressure daily for hypertension I10 Blood Pressure Monitor kit (1 source) Start: 03-23-2020 Blood Pressure Monitor kit Active 0 .ROUTE .MEDSUPPLY 1 March 23, 2020 12:00am Essential (primary) hypertension Check blood pressure daily for hypertension I10 hydroCHLOROthiazide 25 mg / triamterene 37.5 mg oral tablet (20 sources) Potassium-sparing Diuretic, Thiazide Diuretic Start: 11-13-2021 End: 12-28-2024 Triamterene-Hydrochl orothiazid 37.5-25 mg tablet Active 1 {tbl} PO EVERY MORNING 90 December 28, 2024 7:15am Start: 11-13-2021 End: 12-24-2022 take 1 tablet by mouth once daily in the morning Triamterene-Hydrochlorothiazid Discontin ued 1 TABLET PO EVERY MORNING 60 August 06, 2022 10:06am September 21, 2022 1:59pm loperamide hydrochloride 2 mg oral capsule (13 sources) Opioid Agonist Start: 07-26-2020 take 1 capsule by mouth every six hours as needed Loperamide (Imodium A-D) 2 mg capsule Active 2 mg PO EVERY 6 HOURS as needed July 26, 2020 1:00am losartan potassium 25 mg oral tablet (20 sources) Angiotensin 2 Receptor Chris Start: 10-04-2020 End: 04-27-2025 take 1 tablet by mouth once daily Losartan 25 mg tablet Active 25 mg PO DAILY 90 April 27, 2025 1:02pm microencapsulated potassium chloride 20 meq extended release oral tablet (20 sources) Start: 10-22-2023 End: 01-07-2025 take 1 tablet by mouth twice daily Potassium Chloride 20 mEq tablet,ER particles/jxa ls Active 20 meq PO TWICE A DAY 180 January 07, 2025 2:34pm Start: 07-06-2020 End: 10-22-2023 take 1 tablet by mouth twice daily Potassium Chloride 20 mEq tablet extended release Discontinued 20 meq PO TWICE A DAY 90 July 12, 2023 11:06am October 22, 2023 3:37pm Start: 04-05-2020 End: 07-06-2020 take 1 tablet by mouth once daily Potassium Chloride 20 mEq tablet extended release Discontinued 20 meq PO DAILY 90 April 05, 2020 12:00am July 06, 2020 1:20pm rosuvastatin calcium 10 mg oral tablet (20 sources) HMG-CoA Reductase Inhibitor Start: 09-23-2022 End: 12-14-2024 take 1 tablet by mouth once daily Rosuvastatin 10 mg tablet Active 10 mg PO DAILY 90 1 December 14, 2024 9:38am SUMAtriptan 25 mg oral tablet (20 sources) Serotonin-1b and Serotonin-1d Receptor Agonist Start: 03-23-2020 End: 04-29-2025 take 1 tablet by mouth every two hours Sumatriptan Succinate 25 mg tablet Active 0 PO .COMPLEX 14 2 April 29, 2025 1:13pm take 1 tab at onset of headache; if no relief may repeat 1 tab after at least 2 hrs; max = 4 tabs/24 hr PO Completed/Discontinued Medications Medication Drug Class(es) Dates Sig (Normalized) Sig (Original) Flucelvax Quad 3026-4268 (PF) (flu vac qs 2020(2 yr up)CD(PF)) 60 mcg (15 mcg x (1 source) Start: End: inject 15 ug by intramuscular injection once Flucelvax Quad 3650-1293 (PF) (flu vac qs 2020(2 yr up)CD(PF)) 60 mcg (15 mcg x Discontinued 0.5 ML IM ONCE 0.5 May 09, 2021 10:05am May 09, 2021 10:50am hydroCHLOROthiazide 25 mg oral tablet (20 sources) Thiazide Diuretic Start: 0 End: 0 take 1 tablet by mouth twice daily Hydrochlorothiazide 25 mg tablet Discontinued 25 mg PO TWICE A DAY July 26, 2020 3:15pm July 26, 2020 3:37pm Start: 03-23-2020 End: 11-13-2021 take 1 tablet by mouth once daily Hydrochlorothiazide 25 mg tablet Discontinued 25 mg PO DAILY 90 3 February 09, 2021 9:35am November 13, 2021 4:26pm meloxicam 15 mg oral tablet (1 source) Nonsteroidal Anti-inflammatory Drug Start: 03-09-2024 End: 06-10-2024 take 1 tablet by mouth once daily Meloxicam 15 mg tablet Discontinued 15 mg PO DAILY 30 0 March 09, 2024 12:00am June 10, 2024 10:52am predniSONE 5 mg oral tablet (1 source) Start: 06-15-2024 End: 06-25-2024 Prednisone 5 mg tablets,dose pack Discontinued 0 PO per package directions 48 10 0 June 15, 2024 12:00am June 24, 2024 12:00am June 25, 2024 12:08am Tendinitis of left elbow Left elbow pain Other enthesopathies, not elsewhere classified Pain in left elbow elbow pain orally per package directions; PO PER PKG DIR Problems Active Problems Problem Classification Problem Date Documented Date Episodic/Chronic Adjustment disorders (1 source) Grief finding; Translations: [Adjustment disorder with depressed mood] 06-10-2024 Chronic Administrative/social admission (3 sources) Worried well; Translations: [Person with feared health complaint in whom no diagnosis is made] 10-21-2023 Episodic Disorders of lipid metabolism (20 sources) Hyperlipidemia; Translations: [Hyperlipidemia, unspecified] Onset: 04-29-2025 Chronic Essential hypertension (20 sources) Hypertensive disorder; Translations: [Essential (primary) hypertension] Onset: 07-02-2024 Chronic Fluid and electrolyte disorders (20 sources) Hypokalemia; Translations: [Hypokalemia] Episodic Headache; including migraine (20 sources) Migraine; Translations: [Migraine, unspecified, not intractable, without status migrainosus] Chronic Headache; including migraine (13 sources) Frequent headache; Translations: [Frequent headaches] 03-15-2020 Episodic Nonspecific chest pain (3 sources) Chest pain; Translations: [Chest pain, unspecified] 10-23-2023 Episodic Other circulatory disease (7 sources) Feeling of lump in throat; Translations: [Other specified symptoms and signs involving the circulatory and respiratory systems] 02-16-2023 Episodic Other connective tissue disease (1 source) Medial epicondylitis of left humerus; Translations: [Medial epicondylitis, left elbow] 06-15-2024 Episodic Other connective tissue disease (1 source) Bicipital tendinitis, left shoulder; Translations: [Biceps tendinitis of left upper extremity] 06-15-2024 Episodic Other connective tissue disease (1 source) Tendinitis of left elbow; Translations: [Other enthesopathies, not elsewhere classified] 06-15-2024 Episodic Other nervous system disorders (9 sources) Paresthesia; Translations: [Paresthesia of skin] 02-20-2023 Episodic Other non-traumatic joint disorders (1 source) Pain in elbow; Translations: [Pain in left elbow] 06-10-2024 Episodic Other skin disorders (9 sources) Dry skin dermatitis; Translations: [Xerosis cutis] 09-21-2022 Episodic Other skin disorders (2 sources) Xerosis cutis; Translations: [Contact dermatitis and other eczema due to other specified agents] 09-21-2022 Episodic Other upper respiratory disease (13 sources) Seasonal allergy; Translations: [Other seasonal allergic rhinitis] 03-15-2020 Chronic Other upper respiratory disease (4 sources) Other seasonal allergic rhinitis; Translations: [Allergic rhinitis, cause unspecified] 08-07-2023 Chronic Skin and subcutaneous tissue infections (11 sources) Paronychia of finger; Translations: [Cellulitis of left finger] 04-15-2022 Episodic Unclassified (1 source) Encounter for preventive care Unclassified (1 source) Z00.00 - Encounter for general adult medical examination without abnormal findings Past or Other Problems Problem Classification Problem Date Documented Date Episodic/Chronic Immunizations and screening for infectious disease (2 sources) Encounter for screening for infections with a predominantly sexual mode of transmission; Translations: [Encounter for immunization] Onset: 06-10-2024 Episodic Other connective tissue disease (1 source) Other enthesopathies, not elsewhere classified; Translations: [Other enthesopathies, not elsewhere classified] Onset: 07-27-2024 Episodic Other non-traumatic joint disorders (1 source) Pain in left elbow; Translations: [Pain in left elbow] Onset: 07-27-2024 Episodic Other screening for suspected conditions (not mental disorders or infectious disease) (1 source) Encounter for other screening for malignant neoplasm of breast; Translations: [Encounter for other screening for malignant neoplasm of breast] Onset: 08-03-2024 Episodic Unclassified (3 sources) Negative measurement finding; Translations: [No foreign body found on evaluation] 10-21-2023 Results Test Name Value Interpretation Reference Range Facility Internal Medicine Office Vis elsa 04-29-2025 Internal Medicine Office Visit [facility] [address] [place] [address] [place], [place] [id number] OFFICE VISIT Date of Service: 04/29/25 MR#: [id number] Acct: [id number] Name: COURTNEY BROWN Rep #: [id number] : 1985 Provider: Dr. Eloy milan MD Age/Sex: 40/F Location: [facility] Status: Signed Intake Vital Signs 09/16/24 10:47 04/29/25 12:53 Height 5 ft 5 in 5 ft 5 in Weight: 162 lb BMI 26.9 BP 116/74 Blood Pressure Location Lt brachial Position Sitting Respiration 16 Pulse 83 Pulse Source Monitor Temp 97.3 F L Temp Source Temporal Pulse Oximetry (%) 96 Oxygen Delivery Method room air Intake Visit Reasons: Medication Chief Complaint: Follow-up chronic conditions. School Counsellor Required: No Accompanied by: Self Is patient in pain?: No Allergies Penicillins Allergy (Intermediate, Verified 04/29/25 12:52) hives soap Allergy (Verified 04/29/25 12:52) Hives strawberry Allergy (Verified 04/29/25 12:52) Hives Medications ???Medication ???Instructions ???Recorded ???Confirmed ???Type acetaminophen 325 mg capsule 650 mg PO ONCE PRN 03/15/20 History (Tylenol) blood pressure monitor #1 ea 03/23/20 09/16/24 Rx loperamide 2 mg capsule (Imodium 2 mg PO Q6H PRN 07/26/20 04/29/25 History A-D) rosuvastatin 10 mg tablet 10 mg PO DAILY #90 tabs 12/14/24 0 04/29/25 Rx triamterene 37.5 1 tab PO QAM #90 tabs 12/28/2412/18 Rx mg-hydrochlorothiazi de 25 mg tablet potassium chloride 20 mEq 20 meq PO BID #180 TABLETS 5 04/29/25 Rx tablet,extended release(part/cryst) losartan 25 mg tablet 25 mg PO DAILY #90 tabs 04/27/25 0 04/29/25 Rx sumatriptan succinate 25 mg tablet See Rx Instructions PO .COMPLEX 04/29/25 04/29/25 Rx #14 tabs PFSH Medical History Migraine Preventative health care Medial epicondylitis, left elbow Biceps tendinitis of left upper extremity Left elbow tendonitis Grief reaction Left elbow pain Dry skin dermatitis Hyperlipidemia Hypokalemia Hypertension Seasonal allergies Surgical History History of tonsillectomy Family History Mother Myocardial infarction, Onset Age: 45 Hypertension Thyroid disorder Osteoporosis Father Hyperlipemia Hypertension Grandmother Myocardial infarction, Onset Age: 48 Hypertension Thyroid disorder Social History household members: other details: mom current occupational status: employed current occupation: [employer] history of recent travel: No sexually active: Yes Smoking Status: Never smoker alcohol intake: never substance use type: does not use what type of physical activity do you participate in: walking seatbelt use: always do you feel safe at home: Yes additional social history: boyfriend HPI HPI Chief Complaint: Follow-up chronic conditions. Details: COURTNEY BROWN, is a 40-year-old female presenting with a follow-up visit for chronic medical conditions and migraine management. The patient reports experiencing a significant amount of stress due to multiple personal issues, including difficulties with vehicle maintenance that resulted in the cancellation of a previous appointment in December. Despite these stressors, she reports feeling well from a health perspective. The patient has a history of essential hypertension, currently controlled with triamterene- hydrochlorothiazide and losartan. Her reported blood pressure is stable, with the most recent measu rement being 116/74 mmHg, which is consistent with her readings from August. Additionally, the patient is managing hyperlipidemia, for which she takes rosuvastatin (Crestor). She states that she has been on this medication consistently with stable lab results. The patient also reports experiencing migraines, noting that she has been out of Imitrex and has been using Tylenol as an alternative. This has provided some relief, although she experiences approximately four migraine episodes per month, which she attributes to changes in barometric pressure. She reports utilizing Tylenol approximately once a week during these episodes. Other chronic conditions are stable. Has an appointment with QUILL SKINNER in July. Attestation: Documentation on this patient encounter was supported using ambient scribe technology/ voice AI technology. The patient consented to recording for the purpose of documenting the encounter. Provider reviewed content of the generated note prior to signature. ROS Const Constitutional: Positive for headache(s) (occasional); No body ache, chills, excessive sweating, fatigue, fever(s), frequent falls, snoring, weakness (more content not included)... Normal [facility] CBC W/Diff, Automatedon 08-27 Absolute Lymph 1.59 X10 3/uL Normal 0.83-4.51 [facility] Comment on above: Performed By: #### L 100.0100, L500.4100, L500.4050 #### [facility] [address] [place], [address] Absolute Neut 5.8 X10 3/uL Normal 2.0-7.7 [facility] Comment on above: Performed By: #### L 100.0100, L500.4100, L500.4050 #### [facility] [address] [place], [address] Basophils/100 WBC (Bld) 0.6 % Normal 0-1 [facility] Comment on above: Performed By: #### L 100.0100, L500.4100, L500.4050 #### [facility] [address] [place], [address] Eosinophils/100 WBC (Bld) 1.2 % Normal 0-5 [facility] Comment on above: Performed By: #### L 100.0100, L500.4100, L500.4050 #### [facility] [address] [place], [address] Erythrocyte distribution width (RBC) [Ratio] 12.1 % Normal 11.6-14.6 [facility] Comment on above: Performed By: #### L 100.0100, L500.4100, L500.4050 #### [facility] [address] [place], [address] Hematocrit (Bld) [Volume fraction] 45.4 % Normal 37-47 [facility] Comment on above: Performed By: #### L 100.0100, L500.4100, L500.4050 #### [facility] [address] [place], [address] Hemoglobin (Bld) [Mass/Vol] 14.8 g/dL Normal 12.0-15.0 [facility] Comment on above: Performed By: #### L 100.0100, L500.4100, L500.4050 #### [facility] [address] [place], [address] IG% 0.400 Normal 0.0-0.9 [facility] Comment on above: Result Comment: IG% - Immature Granulocytes (promyelocytes, myelocytes and metamyelocytes) > 1% indicates that a LEFT SHIFT is Present. Performed By: #### L 100.0100, L500.4100, L500.4050 #### [facility] [address] [place], [address] Lymphocytes/100 WBC (Bld) 19.5 % Normal 19-41 [facility] Comment on above: Performed By: #### L 100.0100, L500.4100, L500.4050 #### [facility] [address] [place], [address] MCH (RBC) [Entitic mass] 29.8 pg Normal 27.0-32.0 [facility] Comment on above: Performed By: #### L 100.0100, L500.4100, L500.4050 #### [facility] [address] [place], [address] MCHC (RBC) [Mass/Vol] 32.6 g/dL Normal 32-36 [facility] Comment on above: Performed By: #### L 100.0100, L500.4100, L500.4050 #### [facility] [address] [place], [address] MCV (RBC) [Entitic vol] 91.5 fL Normal 81-99 [facility] Comment on above: Performed By: #### L 100.0100, L500.4100, L500.4050 #### [facility] [address] [place], [address] Monocytes/100 WBC (Bld) 7.1 % Normal 0-10 [facility] Comment on above: Performed By: #### L 100.0100, L500.4100, L500.4050 #### [facility] [address] [place], [address] Neutrophils/100 WBC (Bld) 71.2 % High 47-70 [facility] Comment on above: Performed By: #### L 100.0100, L500.4100, L500.4050 #### [facility] [address] [place], [address] Nucleated RBC (Bld) [#/Vol] 0 10*3/uL Normal 0-5 [facility] Comment on above: Performed By: #### L 100.0100, L500.4100, L500.4050 #### [facility] [address] [place], [address] Platelet mean volume (Bld) [Entitic vol] 11.1 fL Normal 6.2-12.0 [facility] Comment on above: Performed By: #### L 100.0100, L500.4100, L500.4050 #### [facility] [address] [place], [address] Platelets (Bld) [#/Vol] 288 10*3/uL Normal 150-450 [facility] Comment on above: Performed By: #### L 100.0100, L500.4100, L500.4050 #### [facility] [address] [place], [address] RBC (Bld) [#/Vol] 4.96 10*6/uL Normal 4.2-5.4 [facility] Comment on above: Performed By: #### L 100.0100, L500.4100, L500.4050 #### [facility] [address] [place], [address] RDW SD 40.3 fl Normal 35.1-43.9 [facility] Comment on above: Performed By: #### L 100.0100, L500.4100, L500.4050 #### [facility] [address] [place], [address] WBC (Bld) [#/Vol] 8.2 10*3/uL Normal 4.4-11.0 [facility] Comment on above: Performed By: #### L 100.0100, L500.4100, L500.4050 #### [facility] [address] [place], [address] Comprehensive Metabolic Prof [facility] 09-16-2024 Albumin [Mass/Vol] 4.0 g/dL Normal 3.2-5.0 [facility] Comment on above: Performed By: #### L 100.0100, L500.4100, L500.4050 #### [facility] [address] [place], [address] Albumin/Globulin [Mass ratio] 1.1 {ratio} Normal 0.9-2.4 [facility] Comment on above: Performed By: #### L 100.0100, L500.4100, L500.4050 #### [facility] [address] [place], [address] ALK P 54 U/L Normal 45-117 [facility] Comment on above: Performed By: #### L 100.0100, L500.4100, L500.4050 #### [facility] [address] [place], [address] ALT [Catalytic activity/Vol] 23 U/L Normal 13-56 [facility] Comment on above: Performed By: #### L 100.0100, L500.4100, L500.4050 #### [facility] [address] [place], [address] AST [Catalytic activity/Vol] 10 U/L Low 15-37 [facility] Comment on above: Performed By: #### L 100.0100, L500.4100, L500.4050 #### [facility] [address] [place], [address] Bilirubin [Mass/Vol] 0.60 mg/dL Normal 0.20-1.00 [facility] Comment on above: Result Comment: For patients on eltrombopag therapy, use of Dimension [place] TBIL is not recommended. Performed By: #### L 100.0100, L500.4100, L500.4050 #### [facility] [address] [place], [address] BUN/CRE 15.2 RATIO Normal 10-20 [facility] Comment on above: Performed By: #### L 100.0100, L500.4100, L500.4050 #### [facility] [address] [place], [address] CA,Total 9.5 mg/dL Normal 8.5-10.1 [facility] Comment on above: Performed By: #### L 100.0100, L500.4100, L500.4050 #### [facility] [address] [place], [address] Chloride [Moles/Vol] 103 mmol/L Normal 98-107 [facility] Comment on above: Performed By: #### L 100.0100, L500.4100, L500.4050 #### [facility] [address] [place], [address] CO2 [Moles/Vol] 29.0 mmol/L Normal 21.0-32.0 [facility] Comment on above: Performed By: #### L 100.0100, L500.4100, L500.4050 #### [facility] [address] [place], [address] Creatinine [Mass/Vol] 0.79 mg/dL Normal 0.55-1.02 [facility] Comment on above: Result Comment: The validity of the calculated GFR GFRAA in patients over 70 years has not been determined. Clinical correlation is essential. Performed By: #### L 100.0100, L500.4100, L500.4050 #### [facility] [address] [place], [address] EST GFR - AA 103 mL/min Normal >60 [facility] Comment on above: Result Comment: Afri can Canadian GFR Calc Performed By: #### L 100.0100, L500.4100, L500.4050 #### [facility] [address] [place], [address] GAP 5 Normal 5-15 [facility] Comment on above: Performed By: #### L 100.0100, L500.4100, L500.4050 #### [facility] [address] [place], [address] GFR/1.73 sq M.predicted among non-blacks MDRD (S/P/Bld) [Vol rate/Area] 85 mL/min/{1.73_m2} Normal >60 [facility] Comment on above: Result Comment: Non- GFR Calc Performed By: #### L 100.0100, L500.4100, L500.4050 #### [facility] [address] [place], [address] Globulin (S) [Mass/Vol] 3.6 g/dL Normal 2.2-4.2 [facility] Comment on above: Performed By: #### L 100.0100, L500.4100, L500.4050 #### [facility] [address] [place], [address] Glucose [Mass/Vol] 90 mg/dL Normal 74-106 [facility] Comment on above: Performed By: #### L 100.0100, L500.4100, L500.4050 #### [facility] [address] [place], [address] Potassium [Moles/Vol] 3.8 mmol/L Normal 3.5-5.1 [facility] Comment on above: Performed By: #### L 100.0100, L500.4100, L500.4050 #### [facility] [address] [place], [address] Sodium [Moles/Vol] 137 mmol/L Normal 136-145 [facility] Comment on above: Performed By: #### L 100.0100, L500.4100, L500.4050 #### [facility] [address] [place], [address] T PROT 7.6 g/dL Normal 6.4-8.2 [facility] Comment on above: Performed By: #### L 100.0100, L500.4100, L500.4050 #### [facility] [address] [place], [address] Urea nitrogen [Mass/Vol] 12 mg/dL Normal 7-18 [facility] Comment on above: Performed By: #### L 100.0100, L500.4100, L500.4050 #### [facility] [address] [place], [address] Internal Medicine Office Vis elsa 09-16-2024 Internal Medicine Office Visit [facility] [address] [place] [address] [place] [address] OFFICE VISIT Date of Service: 09/16/24 MR#: [id number] Acct: [id number] Name: COURTNEY BROWN Rep #: [id number] : 1985 Provider: Dr. Eloy milan MD Age/Sex: 39/F Location: [facility] Status: Signed Intake Vital Signs 06/10/24 10:49 08/03/24 10:46 09/16/24 10:47 Height 5 ft 5 in 5 ft 5 in 5 ft 5 in Weight: 174 lb BMI 28.9 BP 116/62 Blood Pressure Location Lt brachial Position Sitting Respiration 16 Pulse 80 Pulse Source Monitor Temp 97.9 F Temp Source Temporal Pulse Oximetry (%) 99 Oxygen Delivery Method room air Intake Visit Reasons: 3 M FU Chief Complaint: 3m fu School Counsellor Required: No Accompanied by: Self Is patient in pain?: No Allergies Penicillins Allergy (Intermediate, Verified 09/16/24 10:44) hives soap Allergy (Verified 09/16/24 10:44) Hives strawberry Allergy (Verified 09/16/24 10:44) Hives Medications ???Medication ???Instructions ???Recorded ???Confirmed ???Type acetaminophen 325 mg capsule 650 mg PO ONCE PRN 03/15/20 09/16/24 History (Tylenol) blood pressure monitor #1 ea 03/23/20 09/16/24 Rx loperamide 2 mg capsule (Imodium 2 mg PO Q6H PRN 07/26/20 09/16/24 History A-D) sumatriptan succinate 25 mg tablet See Rx Instructions PO .COMPLEX 02/09/21 09/16/24 Rx #14 tabs triamterene 37.5 1 tab PO QAM #90 tabs 01/06/24 09/16/24 Rx mg-hydrochlorothiazi de 25 mg tablet rosuvastatin 10 mg tablet 10 mg PO DAILY #90 tabs 06/22/24 09/16/24 Rx potassium chloride 20 mEq 20 meq PO BID #180 TABLETS 07/13/24 09/16/24 Rx tablet,extended release(part/cryst) losartan 25 mg tablet 25 mg PO DAILY #90 tabs 07/15/24 09/16/24 Rx PFSH Medical History (Updated 09/16/24 @ 11:[address] Eloy Gonzalez MD) Migraine Preventative health care Medial epicondylitis, left elbow Biceps tendinitis of left upper extremity Left elbow tendonitis Grief reaction Left elbow pain Dry skin dermatitis Hyperlipidemia Hypokalemia Hypertension Seasonal allergies Surgical History History of tonsillectomy Family History Mother Myocardial infarction, Onset Age: 45 Hypertension Thyroid disorder Osteoporosis Father Hyperlipemia Hypertension Grandmother Myocardial infarction, Onset Age: 48 Hypertension Thyroid disorder Social History (Updated 09/16/24 @ 10:47 by Rosi Quintero MA) household members: other details: mom current occupational status: employed current occupation: [employer] history of recent travel: No sexually active: Yes Smoking Status: Never smoker alcohol intake: never substance use type: does not use what type of physical activity do you participate in: walking seatbelt use: always do you feel safe at home: Yes additional social history: boyfriend HPI HPI Chief Complaint: 3m fu Details: COURTNEY BROWN, is a 39 F who presents to the office today for follow-up. Due for yearly. No acute concerns. No significant changes since her last visit, feels well. Had a visit with QUILL SKINNER in July and has a mammogram ordered. No known family history of colon cancer. No tobacco or alcohol abuse. Chronic medical conditions are stable. ROS Const Constitutional: No body ache, chills, excessive sweating, fatigue, fever(s), frequent falls, headache(s), snoring, weakness, weight change or change in appetite Eyes Eyes: No blurry vision, change in vision, floaters, visual disturbances, eye pain or Light sensitivity ENT ENT: No abnormal hearing, ear or mastoid pain, tinnitus, balance problems, nosebleed/epistaxis, nasal congestion, headache(s), neck pain or sore throat Resp Respiratory: No cough, excessive phlegm production, pain on inspiration, shortness of breath, snoring or wheezing Cardio Cardiology: No chest pain at rest, chest pain with exertion, excessive sweating, dyspnea on exertion, lightheadedness, orthopnea or palpitations Gastro GI: No abdominal pain, change in bowel habits, constipation, cramping, diarrhea, nausea/dyspepsia or vomiting Genitourinary-Female : No burning urination, painful urination, urinary incontinence, urinary frequency, suprapubic fullness or side pain Musc Musculoskeletal: No abnormal gait, joint pain, back pain, limited range of motion, muscle weakness, neck pain or numbness Skin Skin: No dry skin, redness, excessive hair growth, yellowing of the eye, lesions, itchy eyes, rash or wounds Neuro Neurology: No abnormal gait, abnormal hearing, behavioral changes, unsteady gait/balance, weakness, frequent falls, headache(s), memory loss, numbness or visual disturbances Psych Psychiatric: No anxiety, No behavioral changes, No change i (more content not included)... Normal [facility] Lipid Profileon 09-16-2024 Cholesterol [Mass/Vol] 116 mg/dL Normal 200 [facility] Comment on above: Result Comment: <200 mg/dL Desirable 200-240 mg/dL Borderline >240 mg/dL High Risk Performed By: #### L 100.0100, L500.4100, L500.4050 ####[facility] [address] [place], [address] Cholesterol in HDL [Mass/Vol] 51 mg/dL Normal [facility] Comment on above: Result Comment: The drugs N-Acetylcysteine and Metamizole may falsely depress this assay. Reference Range HDL <40 mg/dL Low HDL Cholesterol HDL >or= 60 mg/dL High HDL Cholesterol Performed By: #### L 100.0100, L500.4100, L500.4050 ####[facility] [address] [place], [address] Cholesterol in LDL [Mass/Vol] 29 mg/dL Normal 0-130 [facility] Comment on above: Performed By: #### L 100.0100, L500.4100, L500.4050 ####[facility] [address] [place], [address] Cholesterol in VLDL [Mass/Vol] 36 mg/dL Normal 5-40 [facility] Comment on above: Performed By: #### L 100.0100, L500.4100, L500.4050 ####[facility] [address] [place], [address] Triglyceride [Mass/Vol] 182 mg/dL Normal [facility] Comment on above: Result Comment: The drugs N-Acetylcysteine and Metamizole may falsely depress this assay. Serum Triglycerides Reference Interval Normal <150 mg/dL Borderline high 150 - 199 mg/dL High 200 - 499 mg/dL Very High > or = 500 mg/dL Performed By: #### L 100.0100, L500.4100, L500.4050 ####[facility] [address] [place], [address] Chlamydia/GC OLEG aptimaon CHLAMY,NUC ACID Negative Normal Negative [facility] Comment on above: Performed By: #### L 7000.1800 #### [facility] [address] [place], [address] GC BY NUC ACID Negative Normal Negative [facility] Comment on above: Result Comment: Perf ormed at: =G - [facility] [address] [id number] Kitchen Help Handyman: Arlen Dickens MD, Phone: [phone] Performed By: #### L 7000.1800 #### [facility] [address] [place], [place], [address] [facility] Visit Reporton 08-03-2024 [facility] Visit Report [facility] [address], [address] [place] [address] OFFICE VISIT Date of Service: 08/03/24 MR#: [id number] Acct: [id number] Name: ADRIANA BROWNRon Mcdowell Rep #: [id number] : 1985 Provider: TABATHA bass Age/Sex: 39/F Location: [facility] Status: Signed Intake Vital Signs 07/31/23 10:53 08/07/23 13:03 06/10/24 14:04 08/03/24 10:42 08/03/24 10:46 Height 5 ft 6 in 5 ft 6 in 5 ft 5 in 5 ft 5 in 5 ft 5 in Weight: 174 lb 6 oz BMI 29.0 BP 122/82 H Intake Visit Reasons: Annual (QUILL SKINNER) Chief Complaint: Annual School Counsellor Required: No Is patient in pain?: No Allergies Penicillins Allergy (Intermediate, Verified 08/03/24 10:42) hives soap Allergy (Verified 08/03/24 10:42) Hives strawberry Allergy (Verified 08/03/24 10:42) Hives Medications ???Medication ???Instructions ???Recorded ???Confirmed ???Type acetaminophen 325 mg capsule 650 mg PO ONCE PRN 03/15/20 08/03/24 History (Tylenol) blood pressure monitor #1 ea 03/23/20 08/03/24 Rx loperamide 2 mg capsule (Imodium 2 mg PO Q6H PRN 07/26/20 08/03/24 History A-D) sumatriptan succinate 25 mg tablet See Rx Instructions PO .COMPLEX 02/09/21 08/03/24 Rx #14 tabs triamterene 37.5 1 tab PO QAM #90 tabs 01/06/24 08/03/24 Rx mg-hydrochlorothiazi de 25 mg tablet rosuvastatin 10 mg tablet 10 mg PO DAILY #90 tabs 06/22/24 08/03/24 Rx potassium chloride 20 mEq 20 meq PO BID #180 TABLETS 07/13/24 08/03/24 Rx tablet,extended release(part/cryst) losartan 25 mg tablet 25 mg PO DAILY #90 tabs 07/15/24 08/03/24 Rx Is last menstrual period known: Yes Last Menstrual Period: 07/22/24 Post menopausal: No Patient : No : No PFSH Medical History Medial epicondylitis, left elbow Biceps tendinitis of left upper extremity Left elbow tendonitis Grief reaction Left elbow pain Dry skin dermatitis Hyperlipidemia Hypokalemia Migraine Hypertension Seasonal allergies Surgical History History of tonsillectomy Family History Mother Myocardial infarction, Onset Age: 45 Hypertension Thyroid disorder Osteoporosis Father Hyperlipemia Hypertension Grandmother Myocardial infarction, Onset Age: 48 Hypertension Thyroid disorder Social History household members: other details: mom current occupational status: employed 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 Denies concerns. No longer with partner of 13 years he wouldn't commit. 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 Last PAP: 2019 History of abnormal PAP: no Last mammogram: 07/2023 History of abnormal mammogram: no Colon cancer screening: age 43 Other preventative health care screenings: Carlos Female Reproductive History Last Menstrual Period: 07/22/24 Cycle Length: 21-35 Questions: metorrhagia: No and sexually active: No ROS Const Constitutional: Denies fatigue, weight gain or weight loss Cardio Card: Denies chest pain Resp Resp: Denies cough or dyspnea on exertion GI GI: Denies abdominal pain, bloating, change in stool character, constipation or vomiting : Reports as per HPI; Denies difficulty voiding, pelvic pain, urinary frequency, urinary incontinence, urinary urgency, vaginal discharge or vaginal pruritus Exam Const General: cooperative, healthy appearing, no acute distress and well developed Orientation: alert, oriented to person and oriented to place [facility] Head: normal to inspection Neck Neck: normal visual inspection Thyroid: thyroid normal Lymphatic: no lymphadenopathy noted Chest Breast inspection: normal inspection of the breasts and normal inspection of the axillae Breast palpation: normal palpation of the breasts, normal palpation of the axillae and no axillary lymphadenopathy Resp Effort Inspection: normal respiratory effort GI Palpation: soft, no masses and nontender Rectal Exam: deferred External Female Exa (more content not included)... Normal [facility] PT D/C Summary (1)on 024 PT D/C Summary (1) [facility] Physical Therapy [facility] [address] [place] [address]. [address] [place] [address] / REHABILITATION SERVICES DISCHARGE SUMMARY MR#: [id number] Acct: [id number] Name: COURTNEY BROWN Rep #: [id number] : 1985 39 From: Andrae Ruiz PT, Heather. T, OCS Referring Dr.: Dr. Topher Santos MD Status: R EG RCR Insurance: [facility] SELF PAY INSURANCE Discharge Summary D/C summary: It has been my pleasure to treat CORUTNEY BROWN referred by Dr. Topher Santos MD, with the diagnosis of PAIN IN LEFT ELBOW ,ENESOPATHIES for a total of 8 visit(s). Discharge Date: Please see the following information for a summary of their discharge status. Subjective Subjective: Doing well mostly back to normal some problems mopping ,vacuuming Pain Wrist: Pain Intensity (Out of 10): 0 Overall Improvement % Improvement: 85 Objective Objective/Function: OSTURE: WFL NEURO: denies paresthesia/tingling PALAPTION: unremarkable AROM: 0-135 elbow flexion MMT: bicep brachialis ,brachialis ,brachioradialis 4/5 no pain ,RTC 4/5 PARACHUTE MARKER STRENGTH (dynamometer): left 50 #,right 55#( patient is left hand dominant) Goals Goal 1:: Patient to improve elbow pain by 60% during job demands and housework tasks Goal Progress: Goal Met Goal 2:: Patient to improve quick dash by 5 points to improve QOL and function Goal Progress: Goal Met Goal 3:: Patient to improve skimmer reverberatory strength dynamometer by 5-10 # to improve job demands Goal Progress: Goal Met Goal 4:: Patient able to perform job demands and housework tasks with no symptoms. Goal Progress: Goal Met Goal Progress: Goal Met Plan Plan: D/C TO HEP D/C Information d/c sentence: If there are questions or concerns regarding this patient's physical therapy, please feel free to call me at [phone]. Thank you for the referral of this patient. Sincerely, Andrae Ruiz PT, Cert MDT, OCS Balance/Gait/Functio nal tests Balance/Special Test Scores Quick DASH Score: 11.3625 Improvement % Improvement: 85 07/24/24 1124 CC: Dr. Eloy Gonzalez MD; Dr. Topher Santos MD JLA Signed Normal [facility] Inital Evaluation (1) - PTon 06-23-2024 Inital Evaluation (1) - PT [facility] Physical Therapy [facility] [address] [place] [address] / REHABILITATION SERVICES INITIAL EVALUATION MR#: [id number] Acct: [id number] Name: COURTNEY BROWN Rep #: [id number] : 1985 39 From: Andrae Ruiz PT, Cert. T, OCS Referring Dr.: Dr. Topher Santos MD Status: R EG R Insurance: [place] [employer] SELF PAY INSURANCE Patient's Visit Information Visit Information Visit Information: COURTNEY BROWN is a 39 year old F referred to Physical Therapy by Dr. Topher Santos MD with a diagnosis of PAIN IN LEFT ELBOW ,ENESOPATHIES. Date of Evaluation: 06/23/24 Physical Therapist: Andrae Ruiz PT, Cert MDT, OCS Visit Plan Frequency: 2x /Week Duration: 4 Weeks Plan: PT INTERVENTIONS STRENGTH BICEPS BRACHIORADIALIS,BRAC HIALIS,BICEPS BRACHII ) ECCENTICS , RTC STRENGTHENING ,WRIST AND FOREARM STRENGTHENING AND US PRN Subjective Subjective: This 39 y/o female presents to physical therapy left elbow pain . Patient has left elbow pain 5 months . Patient see Family tried meloxicam .Recommended PT and x-rays -. Patient has left anterior ,cubital region . Patient pain increases with job demands and housework tasks . Patient aggravating factors with mopping and vacuuming. Also with repetitive lifting. Patient alleviating factors rest. Patient uses elbow sleeve at work. Patient denies paresthesia/tingling . Patient sleeping good. Patient condition affects QOL and job demands. Patient goals to worl with no pain Objective Objective: POSTURE: WFL NEURO: denies paresthesia/tingling PALAPTION: unremarkable AROM: 0-135 elbow flexion MMT: bicep brachialis ,brachialis ,brachioradialis 4/5 no pain ,RTC 4/5 PARACHUTE MARKER STRENGTH (dynamometer): left 45 #,right 50#( patient is left hand dominant) Special Tests L Elbow Flexion Test - Cubital Tunnel: Negative L Elbow Valgus Stress Test - MCL Instability: Negative L Elbow Varus Stress Stest - MCL Instability: Negative L Elbow Biceps Squeeze - Rupture Biceps: Negative Balance/Special Test Scores Quick DASH Score: 29.5450 Goals Goal 1:: Patient to improve elbow pain by 60% during job demands and housework tasks Goal Time Frame: 4-6 Weeks Goal 2:: Patient to improve quick dash by 5 points to improve QOL and function Goal Time Frame: 4-6 Weeks Goal 3:: Patient to improve skimmer reverberatory strength dynamometer by 5-10 # to improve job demands Goal Time Frame: 4-6 Weeks Goal 4:: Patient able to perform job demands and housework tasks with no symptoms. Goal Time Frame: 4-6 Weeks Rehabilitation Potential Physical Therapy Diagnosis: This patient appears to have chronic distal bicep tendonitis with symptoms increase with activity such as job demands and and housework tasks thus benefit skilled PT Rehabilitation Potential: Good Anticipated Interventions Patient/Client Instruction: Educate patient on: Condition and Plan of Care For the Purpose of:: To decrease pain, To improve muscle performance and motor function, To improve ability to perform ADL's, To increase tolerance to activity/condition/p osition, To improve ability of physical actions for home/community/work/ leisure, To improve health of tissue, To decrease soft tissue restriction, To increase flexibility/ROM, To reduce risk of recurrence and To improve tolerance to ADL's Therapeutic Exercise to Include: Strength training and Active ROM Comment: BICEPS/WRIST /FOREARM For the Purpose of:: To decrease pain, To increase ROM, To improve muscle performance and motor function, To increase tolerance to activity/condition/p osition, To improve ability of physical actions for home/community/work/ leisure, To improve health of tissue, To decrease soft tissue restriction and To increase flexibility/ROM TENS: Yes IF ES: Yes Cryotherapy (ice pack, ice massage): Yes Thermo therapy (hot pack): Yes Ultrasound (thermal/non thermal): Yes For the Purpose of:: To decrease pain, To increase ROM, To improve nutrient delivery to tissue, To increase oxygenation perfusion, To improve health of tissue and To decrease soft tissue restriction Text: Thank you for the opportunity to evaluate your patient. For Medicare and Medicare HMO plans, please review the plan of care and approve it. It will need to be FAXED BACK to us at [phone] for Medicare purposes. For Medicare only, by signing this I certify the plan of care. Please let me know if there are questions or concerns regarding this plan of care. Physician Signature: D ate: 06/23/24 1428 CC: Dr. Eloy Gonzalez MD; Dr. Topher Santos MD JLA Signed Normal [facility] Elbow min 3 Viewson 06-15-20 Elbow min 3 Views [facility] [address] [place] [address] Elbow min 3 Views MR#: [id number] Acct: [id number] Name: COURTNEY BROWN Rep #: [id number] : 1985 F 39 From: Shane Ontiveros MD PCP: Dr. Eloy Gonzalez MD Status: DEP AMB Study: Elbow min 3 Views Date of Exam: 06/15/24 Exam# [id number] Ordering Dr: Tophre Santos MD [id number] EXAM: XR LEFT ELBOW COMPLETE, 3 OR MORE VIEWS CLINICAL INDICATION: pain TECHNIQUE: Frontal, lateral and oblique views of the left elbow. COMPARISON: No relevant prior studies available. FINDINGS: BONES/JOINTS: Unremarkable. There is no displacement of the anterior or posterior fat pads. No acute fracture. No subluxation. Normal alignment. Preservation of the joint space. No destructive or sclerotic lesions. SOFT TISSUES: Unremarkable. No soft tissue swelling or gas. No radiopaque foreign body. RAD/Elbow min 3 Views IMPRESSION: Negative left elbow. Electronically Signed: Shane Ontiveros MD at 0:11 EDT , CC: Dr. Eloy Gonzalez MD; Dr. 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 Topher simms MD Age/Sex: 39/F Location: [facility] Status: Signed Intake Vital Signs 06/10/24 10:49 06/10/24 14:04 Height 5 ft 5 in 5 ft 5 in Weight: 170 lb 8 oz BMI 28.3 BP 120/82 H Blood Pressure Location Lt brachial Position Sitting Respiration 16 Pulse 69 Pulse Source Monitor Temp 97.3 F L Temp Source Temporal Pulse Oximetry (%) 97 Oxygen Delivery Method room air Intake Visit Reasons: LEFT ELBOW Accompanied by: Self Is patient in pain?: Yes Pain scale (1-10): 3 Allergies Penicillins Allergy (Intermediate, Verified 06/15/24 12:59) hives soap Allergy (Verified 06/15/24 12:59) Hives strawberry Allergy (Verified 06/15/24 12:59) Hives Medications ???Medication ???Instructions ???Recorded ???Confirmed ???Type acetaminophen 325 mg capsule 650 mg PO ONCE PRN 03/15/20 06/15/24 History (Tylenol) blood pressure monitor #1 ea 03/23/20 06/15/24 Rx loperamide 2 mg capsule (Imodium 2 mg PO Q6H PRN 07/26/20 06/15/24 History A-D) sumatriptan succinate 25 mg tablet See Rx Instructions PO .COMPLEX 02/09/21 06/15/24 Rx #14 tabs triamterene 37.5 1 tab PO QAM #90 tabs 01/06/24 06/15/24 Rx mg-hydrochlorothiazi de 25 mg tablet losartan 25 mg tablet 25 mg PO DAILY #90 tabs 01/21/24 06/15/24 Rx potassium chloride 20 mEq 20 meq PO BID #180 TABLETS 01/21/24 06/15/24 Rx tablet,extended release(part/cryst) rosuvastatin 10 mg tablet 10 mg PO DAILY #90 tabs 03/12/24 06/15/24 Rx prednisone 5 mg tablets in a dose See Rx Instructions PO PER PKG DIR 06/15/24 06/15/24 Rx pack elbow pain 10 days #48 tabs PFSH Medical History (Updated 06/15/24 @ 13:39 by Topher Santos MD) Medial epicondylitis, left elbow Biceps tendinitis of left upper extremity Left elbow tendonitis Grief reaction Left elbow pain Health care maintenance Dry skin dermatitis Hyperlipidemia Hypokalemia Migraine Hypertension Seasonal allergies Surgical History History of tonsillectomy Family History Mother Myocardial infarction, Onset Age: 45 Hypertension Thyroid disorder Osteoporosis Father Hyperlipemia Hypertension Grandmother Myocardial infarction, Onset Age: 48 Hypertension Thyroid disorder Social History household members: other details: mom current occupational status: employed current occupation: [employer] @ [employer] history of recent travel: No sexually active: Yes Smoking Status: Never smoker alcohol intake: never substance use type: does not use what type of physical activity do you participate in: walking seatbelt use: always do you feel safe at home: Yes additional social history: boyfriend HPI LEFT ELBOW Details: This documentation accurately reflects the service provided and the decisions made by me, Dr. Topher Santos MD 06/15/24 1256. Part of today???s visit was documented by [ ], acting as scribe. COURTNEY BROWN is a 39 year old F here today for left elbow pain. anterior and medial side. worse with mopping. 2 months. no trauma. better with ice rest and medications. using a brace. but still bothering. worse in the morning. 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 allergy or intolerance to naproxen Ortho Exam Left Elbow Skin/Wound: Yes CDI, No eccymosis, No erythema and No Swelling Contralateral Normal: Yes Test: No Valgus Stress Test, No Varus Stress Test, Yes TTP Medial Epicondyle, Yes TTP Lateral Epicondyle, Yes Pain w/ resist wrist ext, Yes Pain w/ resist wrist flex, No Thenar Atrophy and No Ulnar Nerve Subluxation ROM: Yes Flexion 0-140, Supination 0-90 and Pronation 0-80 Sensation: Radial: I, Ulnar: I and Median: I Motor: Elbow Extension: 5, Elbow Flexion: 5, EPL: 5, FDP-2: 5 and 1st Dorsal Interosseous: 5 ELBOW: mild pain at distal biceps, no pain to triceps Supplemental Info X-rays 3 views left elbow obtained show no acute abnormalities joint spaces are well-maintained. Coding Level of Care Code Off vis,new,level 3 Diagnoses Left elbow pain M25.522 Left elbow tendonitis M77.8 Biceps tendinitis of left upper extremity M75.22 Medial epicondylitis, left elbow M77.02 Assessment and Plan Assessment and Plan (1) Left elbow pain: Status: Chronic Plan: 39-year-old female left elbow pain. This appears to be repetitive overuse injury with medial epicondylitis biceps tendinitis of the distal biceps as well as lateral epicondylitis tennis elbow. Patient counseled (more content not included)... Normal [facility] Basic Metabolic Profile (BMP )on 06-10-2024 BUN/CRE 15.6 RATIO Normal - [facility] Comment on above: Performed By: #### L 500.2500 ####[facility] [address] [place], [address] CA,Total 9.6 mg/dL Normal 8.5-10.1 [facility] Comment on above: Performed By: #### L 500.2500 ####[facility] [address] [place], [address] Chloride [Moles/Vol] 104 mmol/L Normal 98-107 [facility] Comment on above: Performed By: #### L 500.2500 ####[facility] [address] [place], [address] CO2 [Moles/Vol] 30.0 mmol/L Normal 21.0-32.0 [facility] Comment on above: Performed By: #### L 500.2500 ####[facility] [address] [place], [address] Creatinine [Mass/Vol] 0.84 mg/dL Normal 0.55-1.02 [facility] Comment on above: Result Comment: The validity of the calculated GFR GFRAA in patients over 70 years has not been determined. Clinical correlation is essential. Performed By: #### L 500.2500 ####[facility] [address] [place], [address] EST GFR - AA 97 mL/min Normal >60 [facility] Comment on above: Result Comment: Afri can [place] GFR Calc Performed By: #### L 500.2500 ####[facility] [address] [place], [address] GAP 6 Normal 5-15 [facility] Comment on above: Performed By: #### L 500.2500 ####[facility] [address] [place], [address] GFR/1.73 sq M.predicted among non-blacks MDRD (S/P/Bld) [Vol rate/Area] 80 mL/min/{1.73_m2} Normal >60 [facility] Comment on above: Result Comment: Non- GFR Calc Performed By: #### L 500.2500 ####[facility] [address] [place], [address] Glucose [Mass/Vol] 95 mg/dL Normal 74-106 [facility] Comment on above: Performed By: #### L 500.2500 ####[facility] [address] [place], [address] Potassium [Moles/Vol] 4.2 mmol/L Normal 3.5-5.1 [facility] Comment on above: Performed By: #### L 500.2500 ####[facility] [address] [place], [address] Sodium [Moles/Vol] 140 mmol/L Normal 136-145 [facility] Comment on above: Performed By: #### L 500.2500 ####[facility] [address] [place], [place], [address] Urea nitrogen [Mass/Vol] 13 mg/dL Normal 7-18 [facility] Comment on above: Performed By: #### L 500.2500 ####[facility] [address] [place], [address] Internal Medicine Office Vis iton 06-10-2024 Internal Medicine Office Visit [facility] [address] [place] [address] [place] [address] OFFICE VISIT Date of Service: 06/10/24 MR#: [id number] Acct: [id number] Name: COURTNEY BROWN Rep #: [id number] : 1985 Provider: Dr. Eloy milan MD Age/Sex: 39/F Location: [facility] Status: Signed Intake Vital Signs 03/09/24 13:00 06/10/24 10:49 Height 5 ft 5 in 5 ft 5 in Weight: 177 lb 170 lb 8 oz BMI 29.4 28.3 BP 126/80 H 120/82 H Blood Pressure Location Lt brachial Lt brachial Position Sitting Sitting Respiration 16 16 Pulse 78 69 Pulse Source Monitor Monitor Temp 98.1 F 97.3 F L Temp Source Temporal Temporal Pulse Oximetry (%) 97 97 Oxygen Delivery Method room air room air Intake Visit Reasons: 3 M FU Chief Complaint: 3 M FU School Counsellor Required: No Accompanied by: Self Is patient in pain?: Yes (left arm pain ) Allergies Penicillins Allergy (Intermediate, Verified 06/10/24 10:46) hives soap Allergy (Verified 06/10/24 10:46) Hives strawberry Allergy (Verified 06/10/24 10:46) Hives Medications ???Medication ???Instructions ???Recorded ???Confirmed ???Type acetaminophen 325 mg capsule 650 mg PO ONCE PRN 03/15/20 06/10/24 History (Tylenol) blood pressure monitor #1 ea 03/23/20 06/10/24 Rx loperamide 2 mg capsule (Imodium 2 mg PO Q6H PRN 07/26/20 06/10/24 History A-D) sumatriptan succinate 25 mg tablet See Rx Instructions PO .COMPLEX 02/09/21 06/10/24 Rx #14 tabs triamterene 37.5 1 tab PO QAM #90 tabs 01/06/24 06/10/24 Rx mg-hydrochlorothiazi de 25 mg tablet losartan 25 mg tablet 25 mg PO DAILY #90 tabs 01/21/24 06/10/24 Rx potassium chloride 20 mEq 20 meq PO BID #180 TABLETS 01/21/24 06/10/24 Rx tablet,extended release(part/cryst) rosuvastatin 10 mg tablet 10 mg PO DAILY #90 tabs 03/12/24 06/10/24 Rx PFSH Medical History (Updated 06/10/24 @ 12:[address] 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 Also has some concerns. At her last visit, had reported left elbow pain typically with mopping/working. 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 Tylenol helps. No numbness or tingling reported. She also states that she has been bracing but pain is becoming more concerning. Lost her mom suddenly recently. Since then, has had intermittent episodes of chest discomfort. No other associated factors. These episodes are random and spontaneously resolved. May have 2 to 3- week. She admits to increased anxiety with the loss of her mom. History of hypertension, blood pressure today is 120/82 mmHg. Currently on losartan dietary hydrochlorothiazide which she is taking as prescribed. Other chronic medical conditions are stable. ROS Const Constitutional: Positive for abnormal sleep pattern; No body ache, chills, excessive sweating, fatigue, fever(s), frequent falls, headache(s), snoring, weakness or change in appetite Eyes Eyes: No blurry vision, change in vision, bulging eyes, floaters, visual disturbances, eye pain or Light sensitivity ENT ENT: No abnormal hearing, ear or mastoid pain, tinnitus, balance problems, nosebleed/epistaxis, nasal congestion, headache(s), neck pain or sore throat Resp Respiratory: No cough, excessive phlegm production, pain on inspiration, shortness of breath, snoring or wheezing Cardio Cardiology: No chest pain at rest, chest pain with exertion, excessive sweating, dyspnea on exertion, lightheadedness, orthopnea or palpitations Gastro GI: No abdominal pain, change in bowel habits, constipation, cramping, diarrhea, nausea/dyspepsia or vomiting Genitourinary-Female : No burning urination, painful urination, urinary incontinence or urinary frequency Musc Musculoskeletal: No abnormal g (more content not included)... Normal [facility] Basophil percentageOrdered B y: Eloy Gonzalez on 11-07-2023 Chloride [Moles/Vol] 104 mmol/L 98-107 [facility] Glucose [Mass/Vol] 106 mg/dL 74-106 [facility] Comment on above: Fasting Glucose resu lt from 100 to 125 mg/dL suggests IMPAIRED HOMEOSTASIS per A.D.A. criteria. Potassium [Moles/Vol] 3.5 mmol/L 3.5-5.1 [facility] Sodium [Moles/Vol] 139 mmol/L 136-145 [facility] Laboratory - Chemistry and C hemistry - challengeOrdered By: Eloy Gonzalez on 11-07-2023 CO2 [Moles/Vol] 27.0 mmol/L 21.0-32.0 [facility] Urea nitrogen/Creatinine [Mass ratio] 13.2 mg/mg 10-20 [facility] No Panel InformationOrdered By: Eloy Gonzalez on 11-07-2023 Estimated GFR (MDRD) Amer 97 mL/min >60 [facility] Comment on above: GFR Calc Estimated GFR (MDRD) Non-Af Amer 80 mL/min >60 [facility] Comment on above: Non- GFR Calc Serum or plasma calcium xavier urement (mass/volume)Ordered By: Eloy Gonzalez on 11-07-2023 Calcium [Mass/Vol] 9.1 mg/dL 8.5-10.1 [facility] Serum or plasma creatinine m easurement (mass/volume)Ordered By: Eloy Gonzalez on 11-07-2023 Creatinine [Mass/Vol] 0.84 mg/dL 0.55-1.02 [facility] Comment on above: The validity of the calculated GFR & GFRAA in patients over 70 years has not been determined. Clinical correlation is essential. Serum or plasma urea nitroge n measurement (mass/volume)Ordered By: Eloy Gonzalez on 11-07-2023 Urea nitrogen [Mass/Vol] 11 mg/dL 7-18 [facility] Thin prep Papanicolaou smear with manual screeningOrdered By: Eloy Gonzalez on 11-07-2023 Thin prep Papanicolaou smear with manual screening 8 5-15 [facility] Absolute lymphocyte countOrd ered By: Taylor Araiza on 10-23-2023 Lymphocytes Auto (Unsp spec) [#/Vol] 1.81 10*3/uL 0.83-4.51 [facility] Automated lymphocyte count a s percentage of total leukocytesOrdered By: Taylor Araiza on 10-23-2023 Lymphocytes/100 WBC Auto (Unsp spec) 18.5 % 19-41 [facility] Basophil percentageOrdered B y: Taylor Araiza on 10-23-2023 Basophils/100 WBC (Bld) 0.7 % 0-1 [facility] Chloride [Moles/Vol] 104 mmol/L 98-107 [facility] Eosinophils/100 WBC (Bld) 1.4 % 0-5 [facility] Glucose [Mass/Vol] 92 mg/dL 74-106 [facility] Hemoglobin (Bld) [Mass/Vol] 15.1 g/dL 12.0-15.0 [facility] Monocytes/100 WBC (Bld) 8.6 % 0-10 [facility] Neutrophils (Bld) [#/Vol] 6.9 10*3/uL 2.0-7.7 [facility] Neutrophils/100 WBC (Bld) 70.4 % 47-70 [facility] Potassium [Moles/Vol] 3.0 mmol/L 3.5-5.1 [facility] Sodium [Moles/Vol] 138 mmol/L 136-145 [facility] WBC (Bld) [#/Vol] 9.8 10*3/uL 4.4-11.0 [facility] Determination of erythrocyte mean corpuscular volume (MCV)Ordered By: Taylor Araiza on 10-23-2023 MCV (RBC) [Entitic vol] 89.5 fL 81-99 [facility] Erythrocyte distribution wid th ratioOrdered By: Taylor Araiza on 10-23-2023 Erythrocyte distribution width (RBC) [Ratio] 11.9 % 11.6-14.6 [facility] Erythrocyte distribution wid th standard deviationOrdered By: Taylor Araiza on 10-23-2023 Erythrocyte distribution width (RBC) [Entitic vol] 38.3 fL 35.1-43.9 [facility] Hematocrit Auto (Bld) [Volum e fraction]Ordered By: Taylor Araiza on 10-23-2023 Hematocrit (Bld) [Volume fraction] 45.4 % 37-47 [facility] Immature granulocytes/100 WB C Auto (Bld)Ordered By: Taylor Araiza on 10-23-2023 Immature granulocytes/100 WBC (Bld) 0.400 % 0.0-0.9 [facility] Comment on above: IG% - Immature Granu locytes (promyelocytes, myelocytes and metamyelocytes) > 1% indicates that a LEFT SHIFT is Present. Laboratory - Chemistry and C hemistry - challengeOrdered By: Taylor Araiza on 10-23-2023 CO2 [Moles/Vol] 29.0 mmol/L 21.0-32.0 [facility] Magnesium [Mass/Vol] 2.1 mg/dL 1.6-2.6 [facility] Urea nitrogen/Creatinine [Mass ratio] 12.7 mg/mg 10-20 [facility] Laboratory - Hematology and Cell countsOrdered By: Taylor Araiza on 10-23-2023 MCH (RBC) [Entitic mass] 29.8 pg 27.0-32.0 [facility] MCHC (RBC) [Mass/Vol] 33.3 g/dL 32-36 [facility] Nucleated RBC/100 WBC (Bld) [Ratio] 0 % 0-5 [facility] Platelet mean volume (Bld) [Entitic vol] 10.3 fL 6.2-12.0 [facility] Platelets (Bld) [#/Vol] 270 10*3/uL 150-450 [facility] No Panel InformationOrdered By: Taylor Araiza on 10-23-2023 D-Dimer Quantitative (PE/DVT) < 0.27 FEU/ug/m 0.27-0.49 [facility] Comment on above: NORMAL D-Dimer level (<0.50) indicates no DVT or PE. Estimated Creatinine Clearance Calc 99.59 ml/min [facility] Estimated GFR (MDRD) Amer 104 mL/min >60 [facility] Comment on above: GFR Calc Estimated GFR (MDRD) Non-Af Amer 86 mL/min >60 [facility] Comment on above: Non- GFR Calc Troponin I High Sensitivity 4 pg/mL 3.0-54.0 [facility] Comment on above: Please Note: New [place] t Units and Gender Specific Reference Ranges. For more information see Policy Stat Procedure [place] High Sensitivity Troponin (TNIH) and attachments. RBC Auto (Bld) [#/Vol]Ordere d By: Taylor Araiza on 10-23-2023 RBC (Bld) [#/Vol] 5.07 10*6/uL 4.2-5.4 [facility] Serum or plasma calcium xavier urement (mass/volume)Ordered By: Taylor Araiza on 10-23-2023 Calcium [Mass/Vol] 9.4 mg/dL 8.5-10.1 [facility] Serum or plasma choriogonado tropin detectionOrdered By: Taylor Araiza on 10-23-2023 HCG ( test) Ql Negative [facility] Serum or plasma creatinine m easurement (mass/volume)Ordered By: Taylor Araiza on 10-23-2023 Creatinine [Mass/Vol] 0.79 mg/dL 0.55-1.02 [facility] Comment on above: The validity of the calculated GFR & GFRAA in patients over 70 years has not been determined. Clinical correlation is essential. Serum or plasma urea nitroge n measurement (mass/volume)Ordered By: Taylor Araiza on 10-23-2023 Urea nitrogen [Mass/Vol] 10 mg/dL 7-18 [facility] Thin prep Papanicolaou smear with manual screeningOrdered By: Taylor Araiza on 10-23-2023 Thin prep Papanicolaou smear with manual screening 5 5-15 [facility] Absolute lymphocyte countOrd ered By: Eloy Gonzalez on 08-07-2023 Lymphocytes Auto (Unsp spec) [#/Vol] 1.63 10*3/uL 0.83-4.51 [facility] Basophil percentageOrdered B y: Eloy Gonzalez on 08-07-2023 Basophils/100 WBC (Bld) 1.0 % 0-1 [facility] Bilirubin [Mass/Vol] 0.40 mg/dL 0.20-1.00 [facility] Comment on above: For patients on eltr ombopag therapy, use of Dimension [place] TBIL is not recommended. Chloride [Moles/Vol] 105 mmol/L 98-107 [facility] Cholesterol [Mass/Vol] 148 mg/dL <200 [facility] Comment on above: <200 mg/dL Desirable 200-240 mg/dL Borderline >240 mg/dL High Risk Eosinophils/100 WBC (Bld) 3.7 % 0-5 [facility] Glucose [Mass/Vol] 102 mg/dL 74-106 [facility] Comment on above: Fasting Glucose resu lt from 100 to 125 mg/dL suggests IMPAIRED HOMEOSTASIS per A.D.A. criteria. Neutrophils (Bld) [#/Vol] 5.2 10*3/uL 2.0-7.7 [facility] Neutrophils/100 WBC (Bld) 66.3 % 47-70 [facility] Potassium [Moles/Vol] 4.1 mmol/L 3.5-5.1 [facility] Protein [Mass/Vol] 7.8 g/dL 6.4-8.2 [facility] Sodium [Moles/Vol] 138 mmol/L 136-145 [facility] Triglyceride [Mass/Vol] 168 mg/dL <199 [facility] Comment on above: The drugs N-Acetylcy steine and Metamizole may falsely depress this assay.Serum Triglycerides Reference Interval Normal <150 mg/dL Borderline high 150 - 199 mg/dL High 200 - 499 mg/dL Very High > or = 500 mg/dL WBC (Bld) [#/Vol] 7.8 10*3/uL 4.4-11.0 [facility] Blood erythrocytes count (nu mber/volume)Ordered By: Eloy Gonzalez on 08-07-2023 RBC (Bld) [#/Vol] 5.21 10*6/uL 4.2-5.4 [facility] Blood hemoglobin measurement (mass/volume)Ordered By: Eloy Gonzalez on 08-07-2023 Hemoglobin (Bld) [Mass/Vol] 15.6 g/dL 12.0-15.0 [facility] Blood lymphocytes/100 leukoc ytesOrdered By: Eloy Gonzalez on 08-07-2023 Lymphocytes/100 WBC (Bld) 20.8 % 19-41 [facility] Blood monocytes/100 leukocyt esOrdered By: Eloy Gonzalez on 08-07-2023 Monocytes/100 WBC (Bld) 7.7 % 0-10 [facility] Blood platelet mean volumeOr dered By: Eloy Gonzalez on 08-07-2023 Platelet mean volume (Bld) [Entitic vol] 10.6 fL 6.2-12.0 [facility] Determination of erythrocyte mean corpuscular volume (MCV)Ordered By: Eloy Gonzalez on 08-07-2023 MCV (RBC) [Entitic vol] 92.7 fL 81-99 [facility] Hematocrit Auto (Bld) [Volum e fraction]Ordered By: Eloy Gonzalez on 08-07-2023 Hematocrit (Bld) [Volume fraction] 48.3 % 37-47 [facility] Laboratory - Chemistry and C hemistry - challengeOrdered By: Eloy Gonzalez on 08-07-2023 ALP [Catalytic activity/Vol] 53 U/L 45-117 [facility] ALT [Catalytic activity/Vol] 44 U/L 13-56 [facility] CO2 [Moles/Vol] 28.0 mmol/L 21.0-32.0 [facility] Globulin (S) [Mass/Vol] 3.7 g/dL 2.2-4.2 [facility] Urea nitrogen/Creatinine [Mass ratio] 17.1 mg/mg 10-20 [facility] Laboratory - Hematology and Cell countsOrdered By: Pathoustonchristopher Gonzalez on 08-07-2023 Erythrocyte distribution width (RBC) [Entitic vol] 41.8 fL 35.1-43.9 [facility] Erythrocyte distribution width (RBC) [Ratio] 12.1 % 11.6-14.6 [facility] Immature granulocytes/100 WBC (Bld) 0.500 % 0.0-0.9 [facility] Comment on above: IG% - Immature Granu locytes (promyelocytes, myelocytes and metamyelocytes) > 1% indicates that a LEFT SHIFT is Present. MCH (RBC) [Entitic mass] 29.9 pg 27.0-32.0 [facility] Nucleated RBC/100 WBC (Bld) [Ratio] 0 % 0-5 [facility] MCHC Auto (RBC) [Mass/Vol]Or dered By: Eloy Gonzalez on 08-07-2023 MCHC (RBC) [Mass/Vol] 32.3 g/dL 32-36 [facility] No Panel InformationOrdered By: Eloy Gonzalez on 08-07-2023 Estimated GFR (MDRD) Amer 99 mL/min >60 [facility] Comment on above: GFR Calc Estimated GFR (MDRD) Non-Af Amer 82 mL/min >60 [facility] Comment on above: Non- GFR Calc Platelets bldOrdered By: Luis Antonio iraischristopher Gonzalez on 08-07-2023 Platelets (Bld) [#/Vol] 282 10*3/uL 150-450 [facility] Serum or plasma albumin xavier urement (mass/volume)Ordered By: Eloy Gonzalez on 08-07-2023 Albumin [Mass/Vol] 4.1 g/dL 3.2-5.0 [facility] Serum or plasma albumin/glob ulin mass ratioOrdered By: Eloy Gonzalez on 08-07-2023 Albumin/Globulin [Mass ratio] 1.1 {ratio} 0.9-2.4 [facility] Serum or plasma calcium xavier urement (mass/volume)Ordered By: Eloy Gonzalez on 08-07-2023 Calcium [Mass/Vol] 9.2 mg/dL 8.5-10.1 [facility] Serum or plasma cholesterol in HDL measurement (mass/volume)Ordered By: Eloy Gonzalez on 08-07-2023 Cholesterol in HDL [Mass/Vol] 56 mg/dL >40 [facility] Comment on above: The drugs N-Acetylcy steine and Metamizole may falsely depress this assay. Reference Range HDL <40 mg/dL Low HDL Cholesterol HDL >or= 60 mg/dL High HDL Cholesterol Serum or plasma cholesterol in VLDL measurement (mass/volume)Ordered By: Eloy Gonzalez on 08-07-2023 Cholesterol in VLDL [Mass/Vol] 34 mg/dL 5-40 [facility] Serum or plasma creatinine m easurement (mass/volume)Ordered By: Eloy Gonzalez on 08-07-2023 Creatinine [Mass/Vol] 0.82 mg/dL 0.55-1.02 [facility] Comment on above: The validity of the calculated GFR & GFRAA in patients over 70 years has not been determined. Clinical correlation is essential. Serum or plasma low density lipoprotein (LDL) cholesterol measurement (mass/volume)Ordered By: Eloy Gonzalez on 08-07-2023 Cholesterol in LDL [Mass/Vol] 58 mg/dL 0-130 [facility] Serum or plasma urea nitroge n measurement (mass/volume)Ordered By: Eloy Gonzalez on 08-07-2023 Urea nitrogen [Mass/Vol] 14 mg/dL 7-18 [facility] Thin prep Papanicolaou smear with manual screeningOrdered By: Eloy Gonzalez on 08-07-2023 Thin prep Papanicolaou smear with manual screening 23 U/L 15-37 [facility] Thin prep Papanicolaou smear with manual screening 5 5-15 [facility] Absolute lymphocyte countOrd ered By: Cody Gonzalez on 02-19-2023 Lymphocytes Auto (Unsp spec) [#/Vol] 1.94 10*3/uL 0.83-4.51 [facility] Basophil percentageOrdered B y: Cody Gonzalez on 02-19-2023 Basophils/100 WBC (Bld) 1.1 % 0-1 [facility] Chloride [Moles/Vol] 104 mmol/L 98-107 [facility] Eosinophils/100 WBC (Bld) 1.2 % 0-5 [facility] Glucose [Mass/Vol] 107 mg/dL 74-106 [facility] Comment on above: Fasting Glucose resu lt from 100 to 125 mg/dL suggests IMPAIRED HOMEOSTASIS per A.D.A. criteria. Neutrophils (Bld) [#/Vol] 4.9 10*3/uL 2.0-7.7 [facility] Neutrophils/100 WBC (Bld) 60.7 % 47-70 [facility] Potassium [Moles/Vol] 3.1 mmol/L 3.5-5.1 [facility] Sodium [Moles/Vol] 139 mmol/L 136-145 [facility] WBC (Bld) [#/Vol] 8.1 10*3/uL 4.4-11.0 [facility] Beta hCG serum qualOrdered B y: Cody Gonzalez on 02-19-2023 Beta HCG ( test) Ql Negative [facility] Blood erythrocytes count (nu mber/volume)Ordered By: Cody Gonzalez on 02-19-2023 RBC (Bld) [#/Vol] 5.20 10*6/uL 4.2-5.4 [facility] Blood hemoglobin measurement (mass/volume)Ordered By: Cody Gonzalez on 02-19-2023 Hemoglobin (Bld) [Mass/Vol] 16.0 g/dL 12.0-15.0 [facility] Blood lymphocytes/100 leukoc ytesOrdered By: Cody Gonzalez on 02-19-2023 Lymphocytes/100 WBC (Bld) 24.1 % 19-41 [facility] Blood monocytes/100 leukocyt esOrdered By: Cody Gonzalez on 02-19-2023 Monocytes/100 WBC (Bld) 10.7 % 0-10 [facility] Blood platelet mean volumeOr dered By: Cody Gonzalez on 02-19-2023 Platelet mean volume (Bld) [Entitic vol] 10.7 fL 6.2-12.0 [facility] Determination of erythrocyte mean corpuscular volume (MCV)Ordered By: Cody Gonzalez on 02-19-2023 MCV (RBC) [Entitic vol] 90.2 fL 81-99 [facility] Hematocrit Auto (Bld) [Volum e fraction]Ordered By: Cody Gonzalez on 02-19-2023 Hematocrit (Bld) [Volume fraction] 46.9 % 37-47 [facility] Laboratory - Chemistry and C hemistry - challengeOrdered By: Cody Gonzalez on 02-19-2023 CO2 [Moles/Vol] 31.0 mmol/L 21.0-32.0 [facility] Magnesium [Mass/Vol] 2.3 mg/dL 1.6-2.6 [facility] Urea nitrogen/Creatinine [Mass ratio] 14.5 mg/mg 10-20 [facility] Laboratory - Hematology and Cell countsOrdered By: Cody Gonzalez on 02-19-2023 Erythrocyte distribution width (RBC) [Entitic vol] 39.0 fL 35.1-43.9 [facility] Erythrocyte distribution width (RBC) [Ratio] 11.9 % 11.6-14.6 [facility] Immature granulocytes/100 WBC (Bld) 2.200 % 0.0-0.9 [facility] Comment on above: IG% - Immature Granu locytes (promyelocytes, myelocytes and metamyelocytes) > 1% indicates that a LEFT SHIFT is Present. MCH (RBC) [Entitic mass] 30.8 pg 27.0-32.0 [facility] Nucleated RBC/100 WBC (Bld) [Ratio] 0 % 0-5 [facility] MCHC Auto (RBC) [Mass/Vol]Or dered By: Cody Gonzalez on 02-19-2023 MCHC (RBC) [Mass/Vol] 34.1 g/dL 32-36 [facility] No Panel InformationOrdered By: Cody Gonzalez on 02-19-2023 Estimated Creatinine Clearance Calc 85.19 ml/min [facility] Estimated GFR (MDRD) Amer 99 mL/min >60 [facility] Comment on above: GFR Calc Estimated GFR (MDRD) Non-Af Amer 81 mL/min >60 [facility] Comment on above: Non- GFR Calc Thyroid Stimulating Hormone (TSH) 2.73 uIU/mL 0.358-3.74 [facility] Platelets bldOrdered By: Ren Gonzalez on 02-19-2023 Platelets (Bld) [#/Vol] 249 10*3/uL 150-450 [facility] Serum or plasma calcium xavier urement (mass/volume)Ordered By: Cody Gonzalez on 02-19-2023 Calcium [Mass/Vol] 9.3 mg/dL 8.5-10.1 [facility] Serum or plasma creatinine m easurement (mass/volume)Ordered By: Cody Gonzalez on 02-19-2023 Creatinine [Mass/Vol] 0.83 mg/dL 0.55-1.02 [facility] Comment on above: The validity of the calculated GFR & GFRAA in patients over 70 years has not been determined. Clinical correlation is essential. Serum or plasma urea nitroge n measurement (mass/volume)Ordered By: Cody Gonzalez on 02-19-2023 Urea nitrogen [Mass/Vol] 12 mg/dL 7-18 [facility] Thin prep Papanicolaou smear with manual screeningOrdered By: Cody Gonzalez on 02-19-2023 Thin prep Papanicolaou smear with manual screening 4 5-15 [facility] Basophil percentageOrdered B y: Dr. Gonzalez on 12-24-2022 Bilirubin [Mass/Vol] 0.50 mg/dL 0.20-1.00 [facility] Comment on above: For patients on eltr ombopag therapy, use of Dimension [place] TBIL is not recommended. Chloride [Moles/Vol] 103 mmol/L 98-107 [facility] Glucose [Mass/Vol] 92 mg/dL 74-106 [facility] Potassium [Moles/Vol] 4.1 mmol/L 3.5-5.1 [facility] Protein [Mass/Vol] 7.6 g/dL 6.4-8.2 [facility] Sodium [Moles/Vol] 139 mmol/L 136-145 [facility] Laboratory - Chemistry and C hemistry - challengeOrdered By: Dr. Gonzalez on 12-24-2022 ALP [Catalytic activity/Vol] 60 U/L 45-117 [facility] ALT [Catalytic activity/Vol] 27 U/L 13-56 [facility] CO2 [Moles/Vol] 28.0 mmol/L 21.0-32.0 [facility] Globulin (S) [Mass/Vol] 3.4 g/dL 2.2-4.2 [facility] Urea nitrogen/Creatinine [Mass ratio] 15.7 mg/mg 10-20 [facility] No Panel InformationOrdered By: Dr. Gonzalez on 12-24-2022 Estimated GFR (MDRD) Amer 90 mL/min >60 [facility] Comment on above: GFR Calc Estimated GFR (MDRD) Non-Af Amer 75 mL/min >60 [facility] Comment on above: Non- GFR Calc Serum or plasma albumin xavier urement (mass/volume)Ordered By: Dr. Gonzalez on 12-24-2022 Albumin [Mass/Vol] 4.2 g/dL 3.2-5.0 [facility] Serum or plasma albumin/glob ulin mass ratioOrdered By: Dr. Gonzalez on 12-24-2022 Albumin/Globulin [Mass ratio] 1.2 {ratio} 0.9-2.4 [facility] Serum or plasma calcium xavier urement (mass/volume)Ordered By: Dr. Gonzalez on 12-24-2022 Calcium [Mass/Vol] 10.0 mg/dL 8.5-10.1 [facility] Serum or plasma creatinine m easurement (mass/volume)Ordered By: Dr. Gonzalez on 12-24-2022 Creatinine [Mass/Vol] 0.89 mg/dL 0.55-1.02 [facility] Comment on above: The validity of the calculated GFR & GFRAA in patients over 70 years has not been determined. Clinical correlation is essential. Serum or plasma urea nitroge n measurement (mass/volume)Ordered By: Dr. Gonzalez on 12-24-2022 Urea nitrogen [Mass/Vol] 14 mg/dL 7-18 [facility] Thin prep Papanicolaou smear with manual screeningOrdered By: Dr. Gonzalez on 12-24-2022 Thin prep Papanicolaou smear with manual screening 13 U/L 15-37 [facility] Thin prep Papanicolaou smear with manual screening 8 5-15 [facility] Basophil percentageOrdered B y: Dr. Gonzalez on 09-21-2022 Bilirubin [Mass/Vol] 0.60 mg/dL 0.20-1.00 [facility] Comment on above: For patients on eltr ombopag therapy, use of Dimension [place] TBIL is not recommended. Chloride [Moles/Vol] 103 mmol/L 98-107 [facility] Cholesterol [Mass/Vol] 258 mg/dL <200 [facility] Comment on above: <200 mg/dL Desirable 200-240 mg/dL Borderline >240 mg/dL High Risk Glucose [Mass/Vol] 111 mg/dL 74-106 [facility] Comment on above: Fasting Glucose resu lt from 100 to 125 mg/dL suggests IMPAIRED HOMEOSTASIS per A.D.A. criteria. Potassium [Moles/Vol] 3.9 mmol/L 3.5-5.1 [facility] Protein [Mass/Vol] 7.6 g/dL 6.4-8.2 [facility] Sodium [Moles/Vol] 138 mmol/L 136-145 [facility] Triglyceride [Mass/Vol] 264 mg/dL <199 [facility] Comment on above: The drugs N-Acetylcy steine and Metamizole may falsely depress this assay.Serum Triglycerides Reference Interval Normal <150 mg/dL Borderline high 150 - 199 mg/dL High 200 - 499 mg/dL Very High > or = 500 mg/dL Laboratory - Chemistry and C hemistry - challengeOrdered By: Dr. Gonzalez on 09-21-2022 ALP [Catalytic activity/Vol] 57 U/L 45-117 [facility] ALT [Catalytic activity/Vol] 22 U/L 13-56 [facility] CO2 [Moles/Vol] 28.0 mmol/L 21.0-32.0 [facility] Globulin (S) [Mass/Vol] 3.5 g/dL 2.2-4.2 [facility] Urea nitrogen/Creatinine [Mass ratio] 15.7 mg/mg 10-20 [facility] No Panel InformationOrdered By: Dr. Gonzalez on 09-21-2022 Estimated GFR (MDRD) Amer 77 mL/min >60 [facility] Comment on above: GFR Calc Estimated GFR (MDRD) Non-Af Amer 64 mL/min >60 [facility] Comment on above: Non- GFR Calc Serum or plasma albumin xavier urement (mass/volume)Ordered By: Dr. Gonzalez on 09-21-2022 Albumin [Mass/Vol] 4.1 g/dL 3.2-5.0 [facility] Serum or plasma albumin/glob ulin mass ratioOrdered By: Dr. Gonzalez on 09-21-2022 Albumin/Globulin [Mass ratio] 1.2 {ratio} 0.9-2.4 [facility] Serum or plasma calcium xavier urement (mass/volume)Ordered By: Dr. Gonzalez on 09-21-2022 Calcium [Mass/Vol] 9.5 mg/dL 8.5-10.1 [facility] Serum or plasma cholesterol in HDL measurement (mass/volume)Ordered By: Dr. Gonzalez on 09-21-2022 Cholesterol in HDL [Mass/Vol] 42 mg/dL >40 [facility] Comment on above: The drugs N-Acetylcy steine and Metamizole may falsely depress this assay. Reference Range HDL <40 mg/dL Low HDL Cholesterol HDL >or= 60 mg/dL High HDL Cholesterol Serum or plasma cholesterol in VLDL measurement (mass/volume)Ordered By: Dr. Gonzalez on 09-21-2022 Cholesterol in VLDL [Mass/Vol] 53 mg/dL 5-40 [facility] Serum or plasma creatinine m easurement (mass/volume)Ordered By: Dr. Gonzalez on 09-21-2022 Creatinine [Mass/Vol] 1.02 mg/dL 0.55-1.02 [facility] Comment on above: The validity of the calculated GFR & GFRAA in patients over 70 years has not been determined. Clinical correlation is essential. Serum or plasma low density lipoprotein (LDL) cholesterol measurement (mass/volume)Ordered By: Dr. Gonzalez on 09-21-2022 Cholesterol in LDL [Mass/Vol] 163 mg/dL 0-130 [facility] Serum or plasma urea nitroge n measurement (mass/volume)Ordered By: Dr. Gonzalez on 09-21-2022 Urea nitrogen [Mass/Vol] 16 mg/dL 7-18 [facility] Thin prep Papanicolaou smear with manual screeningOrdered By: Dr. Gonzalez on 09-21-2022 Thin prep Papanicolaou smear with manual screening 15 U/L 15-37 [facility] Thin prep Papanicolaou smear with manual screening 7 5-15 [facility] Absolute lymphocyte counton 02-27-2022 Lymphocytes Auto (Unsp spec) [#/Vol] 1.51 10*3/uL 0.83-4.51 [facility] Work Phone: Basophil percentageon 2021 Basophils/100 WBC (Bld) 0.8 % 0-1 [facility] Work Phone: Bilirubin [Mass/Vol] 0.20 mg/dL 0.20-1.00 [facility] Work Phone: Comment on above: For patients on eltr ombopag therapy, use of Dimension [place] TBIL is not recommended. Chloride [Moles/Vol] 100 mmol/L 98-107 [facility] Work Phone: [phone] Eosinophils/100 WBC (Bld) 1.2 % 0-5 [facility] Work Phone: Glucose [Mass/Vol] 93 mg/dL 74-106 [facility] Work Phone: [phone] Neutrophils (Bld) [#/Vol] 4.3 10*3/uL 2.0-7.7 [facility] Work Phone: Neutrophils/100 WBC (Bld) 66.1 % 47-70 [facility] Work Phone: Potassium [Moles/Vol] 3.2 mmol/L 3.5-5.1 [facility] Work Phone: Protein [Mass/Vol] 8.3 g/dL 6.4-8.2 [facility] Work Phone: Sodium [Moles/Vol] 136 mmol/L 136-145 [facility] Work Phone: WBC (Bld) [#/Vol] 6.5 10*3/uL 4.4-11.0 [facility] Work Phone: Blood erythrocytes count (nu mber/volume)on 02-27-2022 RBC (Bld) [#/Vol] 5.50 10*6/uL [facility].2-5.4 [facility]: Blood hemoglobin measurement (mass/volume)on 02-27-2022 Hemoglobin (Bld) [Mass/Vol] 16.5 g/dL 12.0-15.0 [facility] Work Phone: Blood lymphocytes/100 leukoc yteson 02-27-2022 Lymphocytes/100 WBC (Bld) 23.1 % 19-41 [facility] Work Phone: Blood monocytes/100 leukocyt eson 02-27-2022 Monocytes/100 WBC (Bld) 8.3 % 0-10 [facility] Work Phone: Blood platelet mean volumeon 02-27-2022 Platelet mean volume (Bld) [Entitic vol] 11.9 fL 6.2-12.0 [facility] Work Phone: Determination of erythrocyte mean corpuscular volume (MCV)on 02-27-2022 MCV (RBC) [Entitic vol] 92.7 fL 81-99 [facility] Work Phone: Hematocrit Auto (Bld) [Volum e fraction]on 02-27-2022 Hematocrit (Bld) [Volume fraction] 51.0 % 37-47 [facility] Work Phone: Laboratory - Chemistry and C hemistry - challengeon 02-27-2022 ALP [Catalytic activity/Vol] 56 U/L 45-117 [facility] Work Phone: [phone] ALT [Catalytic activity/Vol] 16 U/L 13-56 [facility] Work Phone: [phone] CO2 [Moles/Vol] 29.0 mmol/L 21.0-32.0 [facility] Work Phone: [phone] Globulin (S) [Mass/Vol] 4.0 g/dL 2.2-4.2 [facility] Work Phone: [phone] Urea nitrogen/Creatinine [Mass ratio] 12.7 mg/mg 10-20 [facility] Work Phone: Laboratory - Hematology and Cell countson 02-27-2022 Erythrocyte distribution width (RBC) [Entitic vol] 40.7 fL 35.1-43.9 [facility] Work Phone: Erythrocyte distribution width (RBC) [Ratio] 11.9 % 11.6-14.6 [facility] Work Phone: [phone] Immature granulocytes/100 WBC (Bld) 0.500 % 0.0-0.9 [facility] Work Phone: Comment on above: IG% - Immature Granu locytes (promyelocytes, myelocytes and metamyelocytes) > 1% indicates that a LEFT SHIFT is Present. MCH (RBC) [Entitic mass] 30.0 pg 27.0-32.0 [facility] Work Phone: Nucleated RBC/100 WBC (Bld) [Ratio] 0 % 0-5 [facility] Work Phone: MCHC Auto (RBC) [Mass/Vol]on 02-27-2022 MCHC (RBC) [Mass/Vol] 32.4 g/dL 32-[address] [facility]: No Panel Informationon 02-27 Estimated GFR (MDRD) Amer 94 mL/min >60 [facility] Work Phone: Comment on above: GFR Calc Estimated GFR (MDRD) Non-Af Amer 78 mL/min >60 [facility] Work Phone: Comment on above: Non- GFR Calc Platelets bldon 02-27-2022 Platelets (Bld) [#/Vol] 262 10*3/uL 150-450 [facility] Work Phone: Serum or plasma albumin xavier urement (mass/volume)on 02-27-2022 Albumin [Mass/Vol] 4.3 g/dL 3.2-5.0 [facility] Work Phone: Serum or plasma albumin/glob ulin mass ratioon 02-27-2022 Albumin/Globulin [Mass ratio] 1.1 {ratio} 0.9-2.4 [facility] Work Phone: Serum or plasma calcium xavier urement (mass/volume)on 02-27-2022 Calcium [Mass/Vol] 10.0 mg/dL 8.5-10.1 [facility] Work Phone: Serum or plasma creatinine m easurement (mass/volume)on 02-27-2022 Creatinine [Mass/Vol] 0.87 mg/dL 0.55-1.02 [facility] Work Phone: Comment on above: The validity of the calculated GFR & GFRAA in patients over 70 years has not been determined. Clinical correlation is essential. Serum or plasma urea nitroge n measurement (mass/volume)on 02-27-2022 Urea nitrogen [Mass/Vol] 11 mg/dL 7-18 [facility] Work Phone: Thin prep Papanicolaou smear with manual screeningon 02-27-2022 Thin prep Papanicolaou smear with manual screening 13 U/L 15-37 [facility] Work Phone: Thin prep Papanicolaou smear with manual screening 7 5-15 [facility] Work Phone: Basophil percentageon 2021 Chloride [Moles/Vol] 106 mmol/L 98-107 [facility] Work Phone: Glucose [Mass/Vol] 87 mg/dL 74-106 [facility] Work Phone: Potassium [Moles/Vol] 3.3 mmol/L 3.5-5.1 [facility] Work Phone: Sodium [Moles/Vol] 138 mmol/L 136-145 [facility] Work Phone: Laboratory - Chemistry and C hemistry - challengeon 11-10-2021 CO2 [Moles/Vol] 27.0 mmol/L 21.0-32.0 [facility] Work Phone: Urea nitrogen/Creatinine [Mass ratio] 15.5 mg/mg 10-20 [facility] Work Phone: No Panel Informationon 11-10 Estimated GFR (MDRD) Amer 90 mL/min >60 [facility] Work Phone: Comment on above: GFR Calc Estimated GFR (MDRD) Non-Af Amer 74 mL/min >60 [facility] Work Phone: Comment on above: Non- GFR Calc Serum or plasma calcium xavier urement (mass/volume)on 11-10-2021 Calcium [Mass/Vol] 9.1 mg/dL 8.5-10.1 [facility] Work Phone: Serum or plasma creatinine m easurement (mass/volume)on 11-10-2021 Creatinine [Mass/Vol] 0.90 mg/dL 0.55-1.02 [facility] Work Phone: Comment on above: The validity of the calculated GFR & GFRAA in patients over 70 years has not been determined. Clinical correlation is essential. Serum or plasma urea nitroge n measurement (mass/volume)on 11-10-2021 Urea nitrogen [Mass/Vol] 14 mg/dL 7-18 [facility] Work Phone: Thin prep Papanicolaou smear with manual screeningon 11-10-2021 Thin prep Papanicolaou smear with manual screening 5 - [facility] Work Phone: Basophil percentageon 2020 Cholesterol [Mass/Vol] 244 mg/dL <200 [facility] Work Phone: Comment on above: <200 mg/dL Desirable 200-240 mg/dL Borderline >240 mg/dL High Risk Triglyceride [Mass/Vol] 193 mg/dL [facility] Work Phone: Comment on above: The drugs N-Acetylcy steine and Metamizole may falsely depress this assay.Serum Triglycerides Reference Interval Normal <150 mg/dL Borderline high 150 - 199 mg/dL High 200 - 499 mg/dL Very High > or = 500 mg/dL Serum or plasma cholesterol in HDL measurement (mass/volume)on 08-09-2021 Cholesterol in HDL [Mass/Vol] 47 mg/dL [facility] Work Phone: Comment on above: The drugs N-Acetylcy steine and Metamizole may falsely depress this assay. Reference Range HDL <40 mg/dL Low HDL Cholesterol HDL >or= 60 mg/dL High HDL Cholesterol Serum or plasma cholesterol in VLDL measurement (mass/volume)on 08-09-2021 Cholesterol in VLDL [Mass/Vol] 39 mg/dL 5-40 [facility] Work Phone: Serum or plasma low density lipoprotein (LDL) cholesterol measurement (mass/volume)on 08-09-2021 Cholesterol in LDL [Mass/Vol] 158 mg/dL 0-130 [facility] Work Phone: Vital Signs Date Time Vital Sign Value Performing Clinician Dinai rolando 04-29-2025 12:53-0400 Body height 165.[address] Eloy Gonzalez MD Work Phone: [facility] 04-29-2025 12:53-0400 Body mass index (BMI) [Ratio] 26.9 kg/m2 Dr. Eloy Gonzalez MD Work Phone: [facility] 04-29-2025 12:53-0400 Body temperature 97.3 [degF] Dr. Eloy Gonzalez MD Work Phone: [facility] 04-29-2025 12:53-0400 Body weight 73.[address] Eloy Gonzalez MD Work Phone: [facility] 04-29-2025 12:53-0400 Diastolic blood pressure 74 mm[Hg] Dr. Eloy Gonzalez MD Work Phone: [facility] 04-29-2025 12:53-0400 Heart rate 83 /min Dr. Eloy Gonzalez MD Work Phone: [facility] 04-29-2025 12:53-0400 Respiratory rate 16 /min Dr. Eloy Gonzalez MD Work Phone: [facility] 04-29-2025 12:53-0400 SaO2% (BldA) [Mass fraction] 96 % Dr. Eloy Gonzalez MD Work Phone: [facility] 04-29-2025 12:53-0400 Systolic blood pressure 116 mm[Hg] Dr. Eloy Gonzalez MD Work Phone: [facility] 11-07-2023 14:45-0400 Body height 165.[address] Eloy Gonzalez Work Phone: [facility] 11-07-2023 14:45-0400 Body mass index (BMI) [Ratio] 29.8 kg/m2 Dr. Eloy Gonzalez Work Phone: [facility] 11-07-2023 14:45-0400 Body temperature 97.7 [degF] Dr. Eloy Gonzalez Work Phone: [facility] 11-07-2023 14:45-0400 Body weight 81.[address] Eloy Gonzalez Work Phone: [facility] 11-07-2023 14:45-0400 Diastolic blood pressure 82 mm[Hg] Dr. Eloy Gonzalez Work Phone: [facility] 11-07-2023 14:45-0400 Heart rate 88 /min Dr. Eloy Gonzalez Work Phone: [facility] 11-07-2023 14:45-0400 Respiratory rate 16 /min Dr. Eloy Gonzalez Work Phone: [facility] 11-07-2023 14:45-0400 SaO2% (BldA) [Mass fraction] 98 % Dr. Eloy Gonzalez Work Phone: [facility] 11-07-2023 14:45-0400 Systolic blood pressure 122 mm[Hg] Dr. Eloy Gonzalez Work Phone: [facility] 10-23-2023 19:53-0500 Body temperature 98.1 [degF] Dr. Eloy Gonzalez Work Phone: [facility] 10-23-2023 19:53-0500 Diastolic blood pressure 94 mm[Hg] Dr. Eloy Gonzalez Work Phone: [facility] 10-23-2023 19:53-0500 Heart rate 74 /min Dr. Eloy Gonzalez Work Phone: [facility] 10-23-2023 19:53-0500 Respiratory rate 16 /min Dr. Eloy Gonzalez Work Phone: [facility] 10-23-2023 19:53-0500 SaO2% (BldA) [Mass fraction] 99 % Dr. Eloy Gonzalez Work Phone: [facility] 10-23-2023 19:53-0500 Systolic blood pressure 117 mm[Hg] Dr. Eloy Gonzalez Work Phone: [facility] 10-23-2023 18:43-0500 Body mass index (BMI) [Ratio] 29.7 kg/m2 Dr. Eloy Gonzalez Work Phone: [facility] 10-23-2023 18:43-0500 Body weight 81.[address] Eloy Gonzalez Work Phone: [facility] 10-23-2023 18:37-0500 Body height 165.[address] Eloy Gonzalez Work Phone: [facility] 10-21-2023 13:24-0500 Body temperature 97.9 [degF] Dr. Eloy Gonzalez Work Phone: [facility] 10-21-2023 13:24-0500 Diastolic blood pressure 94 mm[Hg] Dr. Eloy Gonzalez Work Phone: [facility] 10-21-2023 13:24-0500 Heart rate 92 /min Dr. Eloy Gonzalez Work Phone: [facility] 10-21-2023 13:24-0500 Respiratory rate 18 /min Dr. Eloy Gonzalez Work Phone: [facility] 10-21-2023 13:24-0500 SaO2% (BldA) [Mass fraction] 98 % Dr. Eloy Gonzalez Work Phone: [facility] 10-21-2023 13:24-0500 Systolic blood pressure 127 mm[Hg] Dr. Eloy Gonzalez Work Phone: [facility] 10-21-2023 12:35-0500 Body mass index (BMI) [Ratio] 28.5 kg/m2 Dr. Eloy Gonzalez Work Phone: [facility] 10-21-2023 12:35-0500 Body weight 80.[address] Eloy Gonzalez Work Phone: [facility] 08-07-2023 13:06-0500 Diastolic blood pressure 96 mm[Hg] Dr. Eloy Gonzalez Work Phone: [facility] 08-07-2023 13:06-0500 Systolic blood pressure 146 mm[Hg] Dr. Eloy Gonzalez Work Phone: [facility] 08-07-2023 13:03-0500 Body height 167.[address] Eloy Gonzalez Work Phone: [facility] 08-07-2023 13:03-0500 Body mass index (BMI) [Ratio] 29.3 kg/m2 Dr. Eloy Gonzalez Work Phone: [facility] 08-07-2023 13:03-0500 Body temperature 98.3 [degF] Dr. Eloy Gonzalez Work Phone: [facility] 08-07-2023 13:03-0500 Body weight 82.[address] Eloy Gonzalez Work Phone: [facility] 08-07-2023 13:03-0500 Heart rate 100 /min Dr. Eloy Gonzalez Work Phone: [facility] 08-07-2023 13:03-0500 Respiratory rate 16 /min Dr. Eloy Gonzalez Work Phone: [facility] 08-07-2023 13:03-0500 SaO2% (BldA) [Mass fraction] 98 % Dr. Eloy Gonzalez Work Phone: [facility] 07-31-2023 10:47-0500 Body mass index (BMI) [Ratio] 29.2 kg/m2 Dr. Eloy Gonzalez Work Phone: [facility] 07-31-2023 10:47-0500 Body weight 82.[address] Eloy Gonzalez Work Phone: [facility] 07-31-2023 10:47-0500 Diastolic blood pressure 84 mm[Hg] Dr. Eloy Gonzalez Work Phone: [facility] 07-31-2023 10:47-0500 Systolic blood pressure 128 mm[Hg] Dr. Eloy Gonzalez Work Phone: [facility] 05-01-2023 10:39-0400 Body mass index (BMI) [Ratio] 28.5 kg/m2 Dr. Eloy Gonzalez Work Phone: [facility] 05-01-2023 10:39-0400 Body temperature 98.5 [degF] Dr. Eloy Gonzalez Work Phone: [facility] 05-01-2023 10:39-0400 Body weight 80.[address] Eloy Gonzalez Work Phone: [facility] 05-01-2023 10:39-0400 Diastolic blood pressure 96 mm[Hg] Dr. Eloy Gonzalez Work Phone: [facility] 05-01-2023 10:39-0400 Heart rate 98 /min Dr. Eloy Gonzalez Work Phone: [facility] 05-01-2023 10:39-0400 Respiratory rate 18 /min Dr. Eloy Gonzalez Work Phone: [facility] 05-01-2023 10:39-0400 SaO2% (BldA) [Mass fraction] 99 % Dr. Eloy Gonzalez Work Phone: [facility] 05-01-2023 10:39-0400 Systolic blood pressure 142 mm[Hg] Dr. Eloy Gonzalez Work Phone: [facility] 02-20-2023 00:37-0400 Heart rate 96 /min Dr. Eloy Gonzalez Work Phone: [facility] 02-20-2023 00:37-0400 Respiratory rate 16 /min Dr. Eloy Gonzalez Work Phone: [facility] 02-20-2023 00:37-0400 SaO2% (BldA) [Mass fraction] 99 % Dr. Eloy Gonzalez Work Phone: [facility] 02-19-2023 22:30-0400 Body height 167.[address] Eloy Gonzalez Work Phone: [facility] 02-19-2023 22:30-0400 Body mass index (BMI) [Ratio] 26.6 kg/m2 Dr. Eloy Gonzalez Work Phone: [facility] 02-19-2023 22:30-0400 Body temperature 97.1 [degF] Dr. Eloy Gonzalez Work Phone: [facility] 02-19-2023 22:30-0400 Body weight 74.[address] Eloy Gonzalez Work Phone: [facility] 02-19-2023 22:30-0400 Diastolic blood pressure 92 mm[Hg] Dr. Eloy Gonzalez Work Phone: [facility] 02-19-2023 22:30-0400 Systolic blood pressure 160 mm[Hg] Dr. Eloy Gonzalez Work Phone: [facility] 02-16-2023 12:32-0400 Body height 167.[address] Eloy Gonzalez Work Phone: [facility] 02-16-2023 12:32-0400 Body mass index (BMI) [Ratio] 27.4 kg/m2 Dr. Eloy Gonzalez Work Phone: [facility] 02-16-2023 12:32-0400 Body temperature 97.2 [degF] Dr. Eloy Gonzalez Work Phone: [facility] 02-16-2023 12:32-0400 Body weight 77.[address] Eloy Gonzalez Work Phone: [facility] 02-16-2023 12:32-0400 Diastolic blood pressure 108 mm[Hg] Dr. Eloy Gonzalez Work Phone: [facility] 02-16-2023 12:32-0400 Heart rate 112 /min Dr. Eloy Gonzalez Work Phone: [facility] 02-16-2023 12:32-0400 Respiratory rate 16 /min Dr. Eloy Gonzalez Work Phone: [facility] 02-16-2023 12:32-0400 SaO2% (BldA) [Mass fraction] 100 % Dr. Eloy Gonzalez Work Phone: [facility] 02-16-2023 12:32-0400 Systolic blood pressure 164 mm[Hg] Dr. Eloy Gonzalez Work Phone: [facility] 12-24-2022 09:45-0400 Body height 165.[address] Eloy Gonzalez Work Phone: [facility] 12-24-2022 09:45-0400 Body mass index (BMI) [Ratio] 28.5 kg/m2 Dr. Eloy Gonzalez Work Phone: [facility] 12-24-2022 09:45-0400 Body temperature 95.8 [degF] Dr. Eloy Gonzalez Work Phone: [facility] 12-24-2022 09:45-0400 Body weight 77.[address] Eloy Gonzalez Work Phone: [facility] 12-24-2022 09:45-0400 Diastolic blood pressure 84 mm[Hg] Dr. Eloy Gonzalez Work Phone: [facility] 12-24-2022 09:45-0400 Heart rate 75 /min Dr. Eloy Gonzalez Work Phone: [facility] 12-24-2022 09:45-0400 Respiratory rate 18 /min Dr. Eloy Gonzalez Work Phone: [facility] 12-24-2022 09:45-0400 SaO2% (BldA) [Mass fraction] 99 % Dr. Eloy Gonzalez Work Phone: [facility] 12-24-2022 09:45-0400 Systolic blood pressure 110 mm[Hg] Dr. Eloy Gonzalez Work Phone: [facility] 09-21-2022 09:20-0500 Body height 165.[address] Eloy Gonzalez Work Phone: [facility] 09-21-2022 09:20-0500 Body mass index (BMI) [Ratio] 28.9 kg/m2 Dr. Eloy Gonzalez Work Phone: [facility] 09-21-2022 09:20-0500 Body temperature 96.2 [degF] Dr. Eloy Gonzalez Work Phone: [facility] 09-21-2022 09:20-0500 Body weight 78.[address] Eloy Gonzalez Work Phone: [facility] 09-21-2022 09:20-0500 Diastolic blood pressure 88 mm[Hg] Dr. Eloy Gonzalez Work Phone: [facility] 09-21-2022 09:20-0500 Heart rate 93 /min Dr. Eloy Gonzalez Work Phone: [facility] 09-21-2022 09:20-0500 Respiratory rate 16 /min Dr. Eloy Gonzalez Work Phone: [facility] 09-21-2022 09:20-0500 SaO2% (BldA) [Mass fraction] 98 % Dr. Eloy Gonzalez Work Phone: [facility] 09-21-2022 09:20-0500 Systolic blood pressure 142 mm[Hg] Dr. Eloy Gonzalez Work Phone: [facility] 07-30-2022 10:53-0500 Body height 165.[address] Eloy Gonzalez Work Phone: [facility] Work Phone: 07-30-2022 10:53-0500 Body mass index (BMI) [Ratio] 28.1 kg/m2 Dr. Eloy Gonzalez Work Phone: [facility] 07-30-2022 10:53-0500 Body weight 76.[address] Eloy Gonzalez Work Phone: [facility] 07-30-2022 10:53-0500 Diastolic blood pressure 82 mm[Hg] Dr. Eloy Gonzalez Work Phone: [facility] 07-30-2022 10:53-0500 Systolic blood pressure 134 mm[Hg] Dr. Eloy Gonzalez Work Phone: [facility] 04-07-2022 14:58-0400 Body height 165.[address] Eloy Gonzalez Work Phone: [facility] Work Phone: 04-07-2022 14:58-0400 Body mass index (BMI) [Ratio] 26.9 kg/m2 Dr. Eloy Gonzalez Work Phone: [facility] Work Phone: 04-07-2022 14:58-0400 Body temperature 97.5 [degF] Dr. Eloy Gonzalez Work Phone: [facility] Work Phone: 04-07-2022 14:58-0400 Body weight 73.[address] Eloy Gonzalez Work Phone: [facility] Work Phone: 04-07-2022 14:58-0400 Diastolic blood pressure 98 mm[Hg] Dr. Eloy Gonzalze Work Phone: [facility] Work Phone: 04-07-2022 14:58-0400 Heart rate 107 /min Dr. Eloy Gonzalez Work Phone: [facility] Work Phone: 04-07-2022 14:58-0400 Respiratory rate 16 /min Dr. Eloy Gonzalez Work Phone: [facility] Work Phone: 04-07-2022 14:58-0400 SaO2% (BldA) [Mass fraction] 100 % Dr. Eloy Gonzalez Work Phone: [facility] Work Phone: 04-07-2022 14:58-0400 Systolic blood pressure 142 mm[Hg] Dr. Eloy Gonzalez Work Phone: [facility] Work Phone: 02-27-2022 09:52-0400 Body height 166.[address] Eloy Gonzalez Work Phone: [facility] Work Phone: 02-27-2022 09:52-0400 Body mass index (BMI) [Ratio] 26.6 kg/m2 Dr. Eloy Gonzalez Work Phone: [facility] Work Phone: 02-27-2022 09:52-0400 Body temperature 98.1 [degF] Dr. Eloy Gonzalez Work Phone: [facility] Work Phone: 02-27-2022 09:52-0400 Body weight 73.[address] Eloy Gonzalez Work Phone: [facility] Work Phone: 02-27-2022 09:52-0400 Diastolic blood pressure 82 mm[Hg] Dr. Eloy Gonzalez Work Phone: [facility] Work Phone: 02-27-2022 09:52-0400 Heart rate 95 /min Dr. Eloy Gonzalez Work Phone: [facility] Work Phone: 02-27-2022 09:52-0400 Respiratory rate 14 /min Dr. Eloy Gonzalez Work Phone: [facility] Work Phone: 02-27-2022 09:52-0400 SaO2% (BldA) [Mass fraction] 99 % Dr. Eloy Gonzalez Work Phone: [facility] Work Phone: 02-27-2022 09:52-0400 Systolic blood pressure 138 mm[Hg] Dr. Eloy Gonzalez Work Phone: [facility] Work Phone: 11-10-2021 09:53-0400 Body mass index (BMI) [Ratio] 28.3 kg/m2 Dr. Eloy Gonzalez Work Phone: [facility] Work Phone: 11-10-2021 09:53-0400 Body temperature 98.1 [degF] Dr. Eloy Gonzalez Work Phone: [facility] Work Phone: 11-10-2021 09:53-0400 Body weight 78.[address] Eloy Gonzalez Work Phone: [facility] Work Phone: 11-10-2021 09:53-0400 Diastolic blood pressure 92 mm[Hg] Dr. Eloy Gonzalez Work Phone: [facility] Work Phone: 11-10-2021 09:53-0400 Heart rate 108 /min Dr. Eloy Gonzalez Work Phone: [facility] Work Phone: 11-10-2021 09:53-0400 Respiratory rate 16 /min Dr. Eloy Gonzalez Work Phone: [facility] Work Phone: 11-10-2021 09:53-0400 SaO2% (BldA) [Mass fraction] 99 % Dr. Eloy Gonzalez Work Phone: [facility] Work Phone: 11-10-2021 09:53-0400 Systolic blood pressure 146 mm[Hg] Dr. Eloy Gonzalez Work Phone: [facility] Work Phone: 11-10-2021 09:53-0400 Body height 166.[address] Eloy Gonzalez Work Phone: [facility] Work Phone: 11-10-2021 09:53-0400 Body mass index (BMI) [Ratio] 28.3 kg/m2 Dr. Eloy Gonzalez Work Phone: [facility] Work Phone: 11-10-2021 09:53-0400 Body temperature 98.1 [degF] Dr. Eloy Gonzalez Work Phone: [facility] Work Phone: 11-10-2021 09:53-0400 Body weight 78.[address] Eloy Gonzalez Work Phone: [facility] Work Phone: 11-10-2021 09:53-0400 Diastolic blood pressure 92 mm[Hg] Dr. Eloy Gonzalez Work Phone: [facility] Work Phone: 11-10-2021 09:53-0400 Heart rate 108 /min Dr. Eloy Gonzalez Work Phone: [facility] Work Phone: 11-10-2021 09:53-0400 Respiratory rate 16 /min Dr. Eloy Gonzalez Work Phone: [facility] Work Phone: 11-10-2021 09:53-0400 SaO2% (BldA) [Mass fraction] 99 % Dr. Eloy Gonzalez Work Phone: [facility] Work Phone: 11-10-2021 09:53-0400 Systolic blood pressure 146 mm[Hg] Dr. Eloy Gonzalez Work Phone: [facility] Work Phone: 08-09-2021 09:23-0500 Body mass index (BMI) [Ratio] 27.5 kg/m2 Dr. Eloy Gonzalez Work Phone: [facility] Work Phone: 08-09-2021 09:23-0500 Body temperature 98.1 [degF] Dr. Eloy Gonzalez Work Phone: [facility] Work Phone: 08-09-2021 09:23-0500 Body weight 76.[address] Eloy Gonzalez Work Phone: [facility] Work Phone: 08-09-2021 09:23-0500 Diastolic blood pressure 82 mm[Hg] Dr. Eloy Gonzalez Work Phone: [facility] Work Phone: 08-09-2021 09:23-0500 Heart rate 90 /min Dr. Eloy Gonzalez Work Phone: [facility] Work Phone: 08-09-2021 09:23-0500 Respiratory rate 14 /min Dr. Eloy Gonzalez Work Phone: [facility] Work Phone: 08-09-2021 09:23-0500 SaO2% (BldA) [Mass fraction] 99 % Dr. Eloy Gonzalez Work Phone: [facility] Work Phone: 08-09-2021 09:23-0500 Systolic blood pressure 144 mm[Hg] Dr. Eloy Gonzalez Work Phone: [facility] Work Phone: 07-27-2021 11:50-0500 Body mass index (BMI) [Ratio] 27.7 kg/m2 Dr. Eloy Gonzalez Work Phone: [facility] Work Phone: 07-27-2021 11:50-0500 Body weight 76.[address] Eloy Gonzalez Work Phone: [facility] Work Phone: 07-27-2021 11:50-0500 Diastolic blood pressure 96 mm[Hg] Dr. Eloy Gonzalez Work Phone: [facility] Work Phone: 07-27-2021 11:50-0500 Systolic blood pressure 158 mm[Hg] Dr. Eloy Gonzalez Work Phone: [facility] Work Phone: Encounters Encounter Date Encounter Type Care Provider Facility Start: 04-29-2025 Encounter for genera l adult medical examination without abnormal findings Eloy Gonzalez [facility] Start: 04-29-2025 End: 04-29-[address] Eloy Gonzalez MD -[facility] Work Phone: Start: 04-29-2025 End: 04-29-[address] Eloy Gonzalez MD Work Phone: -[facility] Start: 09-16-[address] 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 Eloy Gonzalez Work Phone: [facility] Start: 11-07-2023 End: 11-07-[address] Eloy Gonzalez Work Phone: [facility] Work Phone: Start: 11-07-2023 End: 11-07-2023 Encounter for general adult medical examination without abnormal findings Dr. Eloy Gonzalez Work Phone: [facility] Start: 11-07-2023 End: 11-07-[address] Eloy Gonzaelz Work Phone: [facility] Work Phone: Start: 10-23-2023 End: 10-23-2023 Emergency department patient visit Dr. Eloy Gonzalez Work Phone: [facility] Work Phone: Start: 10-21-2023 End: 10-21-2023 Emergency department patient visit Dr. Eloy Gonzalez Work Phone: [facility] Work Phone: Start: 08-22-2023 End: 08-22-[address] Eloy Gonzalez Work Phone: [facility] Work Phone: Start: 08-22-2023 End: 08-22-[address] Eloy Gonzalez Work Phone: [facility]Out[facility] Work Phone: Start: 08-07-2023 End: 08-07-[address] Eloy Gonzalez Work Phone: [facility] Work Phone: Start: 08-07-2023 End: 08-07-[address] Eloy Gonzalez Work Phone: [facility] Work Phone: Start: 07-31-2023 End: 07-31-[address] Eloy Gonzalez Work Phone: [facility] Work Phone: Start: 05-01-2023 End: 05-01-[address] Eloy Gonzalez Work Phone: [facility] Work Phone: Start: 02-19-2023 End: 02-20-2023 Emergency department patient visit Dr. Eloy Gonzalez Work Phone: [facility] Start: 02-16-2023 End: 02-16-2023 Emergency department patient visit Dr. Eloy Gonzalez Work Phone: [facility] Start: 12-24-2022 End: 12-24-[address] Eloy Gonzalez Work Phone: [facility] Work Phone: Start: 12-24-2022 End: 12-24-[address] Eloy Gonzalez Work Phone: [facility] Internal [facility] Start: 09-21-2022 End: 09-21-[address] Eloy Gonzalez Work Phone: [facility] Work Phone: Start: 09-21-2022 End: 09-21-[address] Eloy Gonzalez Work Phone: [facility] Internal [facility] Start: 08-08-2022 End: 08-08-[address] Eloy Gonzalez Work Phone: [facility] Work Phone: Start: 08-08-2022 End: 08-08-[address] Eloy Gonzalez Work Phone: [facility] Start: 07-30-2022 End: 07-30-[address] Eloy Gonzalez Work Phone: [facility] Start: 04-07-2022 End: 04-07-2022 Emergency department patient visit Dr. Eloy Gonzalez Work Phone: [facility]Emergency Department Start: 02-27-2022 End: 02-27-[address] Eloy Gonzalez Work Phone: [facility] Start: 11-10-2021 End: 11-10-[address] Eloy Gonzalez Work Phone: [facility] Start: 08-09-2021 End: 08-09-[address] Eloy Gonzalez Work Phone: [facility] Start: 07-27-2021 End: 07-27-[address] Eloy Gonzalez Work Phone: [facility] Procedures Date Procedure Procedure Detail Performing Clinician Start: 10-23-2023 Plain chest X-ray Dr. Fay Gonzalez Work Phone: Start: 10-21-2023 X-ray of soft tissue of neck Dr. Eloy Gonzalez Work Phone: Start: 08-22-2023 Screening mammography Luis Gonzalez Work Phone: Start: 02-16-2023 X-ray of soft tissue of neck Dr. Eloy Gonzalez Work Phone: Start: 08-08-2022 Screening mammography Luis Gonzalez Work Phone: Plan of Treatment Date Care Activity Detail Author Start: 10-23-2023 End: 10-23-2023 [facility] Start: 10-21-2023 [facility] Start: 02-16-2023 [facility] CBC W Auto Different ial panel - Blood [facility] Comprehensive metabo lic 2000 panel - Serum or Plasma [facility] Lipid 1996 panel - S thao or Plasma [facility] MG Breast - bilateral Screening [facility] Patient Education [facility] Work Phone: Patient referral [facility] Work Phone: Immunizations Immunization Date Immunization Notes [facility] influenza, injectabl e, madin violette canine kidney, preservative free Dr. Eloy Gonzalez MD Work Phone: [facility] 08-03-2021 Covid (Pfizer) Dr. Eloy Gonzalez Work Phone: [facility] 12-21-2020 Covid (Pfizer) Dr. Eloy Gonzalez Work Phone: [facility] 11-30-2020 Covid (Pfizer) Dr. Eloy Gonzalez Work Phone: [facility] 07-05-2020 influenza, injectable,quadrivalent , preservative free, pediatric Dr. Eloy Gonzalez Work Phone: [facility] 07-05-2020 Flucelvax Quad (PF) (flu vac qs 2019(4 yr up)CD(PF)) 60 mcg ([address] Eloy Gonzalez Work Phone: [facility] Work Phone: Payers Date Payer Category Payer Self-pay [id number] 2021 Unknown [id number] Unknown [id number] 2.16.8 [id number] Unknown [id number] 2.16.8 [id number] Unknown [id number] 2.16.8 [id number] Unknown [id number] 2.16.8 [id number] Unknown [id number] 2.16.8 [id number] Unknown [id number] 2.16.8 [id number] Unknown [id number] 2.16.8 [id number] Unknown [id number] 2.16.8 [id number] Unknown [id number] 2.16.8 [id number] Unknown [id number] 2.16.8 [id number] Social History Date Type Detail Facility Start: 11-10-2021 End: 11-07-2023 Tobacco smoking status IDIS Unknown if ever smoked [facility] Start: 1985 Sex Assigned At Female [facility] Start: 09-16-2024 Tobacco smoking status NHIS Never smoked tobacco (finding) [facility] NEGATED: Highlighted row [facility] Mental Status Date Assessment Result Facility 10-23-2023 Cognitive function Voice/Name [facility] Work Phone: 10-21-2023 Cognitive function Level Of Cons ciousness Awake;Alert;Appropriate;Follow s Commands [facility] Work Phone: 02-19-2023 Cognitive function Level Of Cons ciousness Awake;Alert;Appropriate [facility] Work Phone: 02-16-2023 Cognitive function Level Of Cons ciousness Awake;Alert;Appropriate;Follow s Commands [facility] Work Phone: Clinical Notes Note Date & Type Note Facility Discharge summary Note Date/Time February 20, 2023 12:38am [facility] Medical Records Department [address] [place] [address] Emergency Department Summary 02/20/23 MR#: [id number] Acct: [id number] Name: COURTNEY BROWN Rep #:[id number] : 1985 37 From: Cody Gonzalez DO PCP: Dr. Eloy Gonzalez MD Status:R EG ER Location: ED HPI History of Present Illness Chief Complaint: Dizziness Informant: patient Narrative Narrative: Patient is a 37-year-old female with past medical history of hypertension hyperlipidemia and migraine headache. She states that today for the entire daysshe has felt some numbness and tingling to both hands and feet. She denies any history of diabetes. She states that there is been no headache or change in vision associated with this. She states that she has felt lightheaded but hasbeen able to walk with a steady gait throughout the day. However symptoms have persisted for multiple hours she presents for evaluation. [facility] Medical History Dry skin dermatitis Frequent headaches Hyperlipidemia Hypokalemia Seasonal allergies Home Medications acetaminophen 325 mg capsule (Tylenol) 650 mg PO ONCE PRN 03/15/20 [History Last Taken Unknown] blood pressure monitor #1 ea 03/23/20 [Rx Last Taken Unknown] loperamide 2 mg capsule (Imodium A-D) 2 mg PO Q6H PRN 07/26/20 [History Last Taken Unknown] sumatriptan succinate 25 mg tablet See Rx Instructions PO .COMPLEX #14 tabs 02/09/21 [Rx Last Taken Unknown] potassium chloride 20 mEq tablet,extended release 20 meq PO BID #90 tabs 09/21/22 [Rx Last Taken Unknown] losartan 25 mg tablet 25 mg PO DAILY #90 tabs 12/24/22 [Rx Last Taken Unknown] rosuvastatin 10 mg tablet 10 mg PO DAILY #90 tabs 12/24/22 [Rx Last Taken Unknown] triamterene 37.5 mg-hydrochlorothiazide 25 mg tablet 1 tab PO QAM #90 tabs 12/24/22 [Rx Last Taken Unknown] Allergy/AdvReac Type Severity Reaction Status Date / Time Penicillins Allergy Intermediate hives Verified 02/19/23 22:29 soap Allergy Hives Verified 02/19/23 22:29 strawberry Allergy Hives Verified 02/19/23 22:29 Family History Mother Myocardial infarction, Onset Age: 45 Hypertension Thyroid disorder Osteoporosis Father Hyperlipemia Hypertension Grandmother Myocardial infarction, Onset Age: 48 Hypertension Thyroid disorder Surgical History History of tonsillectomy Social History household members: other details: mom current occupational status: employed current occupation: [employer] @ [employer] history of recent travel: No sexually active: Yes Smoking Status: Never smoker alcohol intake: never substance use type: does not use what type of physical activity do you participate in: walking seatbelt use: always do you feel safe at home: Yes additional social history: boyfriend ROS ROS ED Constitutional Constitutional ED: Denies chills or fever(s) Eyes Eyes: Denies change in vision ENT ENT ED: Denies sore throat Cardiovascular Cardiovascular: Denies chest pain, palpitations or racing heartbeat Respiratory/Chest Respiratory/Chest: Denies cough or dyspnea Gastrointestinal Gastrointestinal: Denies abdominal pain, diarrhea, nausea or vomiting Genitourinary Genitourinary ED: Denies dysuria Musculoskeletal Musculoskeletal: Denies myalgias Integumentary Denies rash Neurologic Neurologic: Reports paresthesias; Denies headache(s) or weakness Hematologic/Lymphatic Hematologic/Lymphatic: Denies easy bleeding or easy bruising EXAM Physical Exam Const Vital Signs: 02/19/23 22:30 02/19/23 22:42 Temperature 97.1 F L Temperature Source Temporal Pulse Rate 104 H Respiratory Rate 18 Respiratory Pattern Normal Blood Pressure 160/92 H Blood Pressure Mean 114 Pulse Ox 100 Positive well nourished and well developed General Appearance ED: well developed HEENT Reports moist mucous membranes HEENT Narrative: No tongue or lip swelling no oral lesions no airway edema or compromise Eyes PERRL and EOMs intact bilaterally Neck supple Resp normal respiratory effort and clear to auscultation bilaterally Cardio regular rate and regular rhythm Rate: other Other Details: Radial pulses are plus 2 out of 4 bilaterally are equal and symmetric GI normal to inspection, nondistended, normoactive bowel sounds, non-tender, non-distended and no masses Auscultation: normoactive bowel sounds Palpation: soft Extremity normal to inspection Neuro oriented x3, CN's II-XII intact bilaterally and no sensory deficits noted Neuro Narrative: Cranial nerves II through XII are grossly intact. No focal neurologic deficit. No pronator drift no dysmetria no truncal ataxia. NIH stroke scale score of 0 Patient reports paresthesias in her bilateral hands and feet but when patient istested with soft and sharp sensation in multiple dermatomes she has no dysfunction. Sensorium / Orientation: alert Motor Exam: strength 5/5 throughout Psych mental status grossly normal Skin no rashes or lesions noted MDM MDM MDM Narrative Medical decision making narrative: Patient presented to the ER hypertensive otherwise with stable vitals and does have a history of hypertension so this is not to be unexpected. She reported paresthesias in hands and feet for the entire day and differential diagnosis includes anxiety versus electrolyte abnormality versus neurologic event versus. The patient's neuro exam is normal and when she was stressed with testing of thesharp and soft sensation in multiple dermatomes there was no deficits so I felt no need for head CT. Her electrolytes showed mild decreased potassium at 3.1 which should not cause any true. Her blood sugar is essentially normal at 107 and there is no anion gap or derangement to her bicarb going against diabetes asa cause of her reported paresthesias. At this time patient's work-up is negative her vitals remained stable and there are no signs of this is associatedwith a neurologic event so there is no need for admission to the hospital patient is otherwise safe for discharge. History & Record Review Discussion w/independent historian: Patient Lab Data Attestation: I reviewed the patient's lab results. Labs: Laboratory Results - last 24 hr 02/19/23 02/19/23 02/19/23 23:10 23:10 23:10 WBC 8.1 RBC 5.20 Hgb 16.0 H Hct 46.9 MCV 90.2 MCH 30.8 MCHC 34.1 RDW Std Deviation 39.0 RDW Coeff of Palomo 11.9 Plt Count 249 MPV 10.7 Immature Gran % (Auto) 2.200 H Neut % (Auto) 60.7 Lymph % (Auto) 24.1 Richardson % (Auto) 10.7 H Eos % (Auto) 1.2 Baso % (Auto) 1.1 H Absolute Neuts (auto) 4.9 Absolute Lymphs (auto) 1.94 Nucleated RBC % 0 Sodium 139 Potassium 3.1 L Chloride 104 Carbon Dioxide 31.0 Anion Gap 4 L BUN 12 Creatinine 0.83 Estim Creat Clear Calc 85.19 Est GFR (MDRD) Af Amer 99 Est GFR (MDRD) Non-Af 81 BUN/Creatinine Ratio 14.5 Glucose 107 H Calcium 9.3 Magnesium 2.3 TSH 2.73 Serum , Qual NEGATIVE Discharge Plan Triage Chief Complaint: Dizziness ED Provider: Cody Gonzalez Dx/Rx/DC Orders Clinical Impression: Paresthesias, Hypokalemia, Hypertension Instructions: ED Hypokalemia, ED Paraesthesias Prescriptions: No Action (DME) blood pressure monitor Kit See Rx Instructions .ROUTE .MEDSUPPLY Qty: 1 0RF Rx Instructions: Check blood pressure daily for hypertension I10 acetaminophen [Tylenol] 325 mg capsule 650 mg PO ONCE PRN loperamide [Imodium A-D] 2 mg capsule 2 mg PO Q6H PRN potassium chloride 20 mEq tablet extended release 20 meq PO BID Qty: 90 3RF Hold Instructions: Home Medication placed on hold at Doctor's office losartan 25 mg tablet 25 mg PO DAILY Qty: 90 3RF triamterene-hydrochlorothiazid 37.5-25 mg tablet 1 tab PO QAM Qty: 90 3RF rosuvastatin 10 mg tablet 10 mg PO DAILY Qty: 90 2RF sumatriptan succinate 25 mg tablet See Rx Instructions PO .COMPLEX Qty: 14 0RF Rx Instructions: take 1 tab at onset of headache; if no relief may repeat 1 tab after at least2 hrs; max = 4 tabs/24 hr PO Stand Alone Forms: ED Work / School Excuse Primary Care Provider: Eloy Gonzalez Referrals: Eloy Gonzalez MD [Primary Care Provider] - Disposition Disposition: Home, Self Care What to do if you have Problems For any increased pain, shortness of breath, bleeding, nausea or vomiting, chestpain, or any unexpected problems, contact your Primary Care Provider. Call [facility] ([phone]) or report to the closest Emergency Room. Call 911 if necessary. 02/20/23 0053 <Electronically signed by Cody Gonzalez DO> Cosigner Signature (if applicable): CC: Dr. Eloy Gonzalez MD ~ Signed [facility] Work Phone: Evaluation note* Diagnosis Onset Date Resolution Status Hyperlipidemia acute Hypertension chronic Hyperlipidemia acute Hypertension chronic Migraine [facility] Work Phone: Evaluation note* Diagnosis Onset Date Resolution Status Hyperlipidemia acute Hypertension chronic Migraine chronic Hyperlipidemia acute Hypokalemia acute Hypertension [facility] Work Phone: Evaluation note* Diagnosis Onset Date Resolution Status Hyperlipidemia acute Hypokalemia acute Hypertension [facility] Work Phone: Evaluation note* Diagnosis Onset Date Resolution Status Encounter for routine gynecological examination noneactive [facility] Work Phone: Evaluation note* Diagnosis Onset Date Resolution Status Encounter for routine gynecological examination noneactive Dry skin dermatitis acute Hyperlipidemia chronic Hypertension chronic Hypokalemia chronic Migraine chronic [facility] Work Phone: Evaluation note* Diagnosis Onset Date Resolution Status Dry skin dermatitis acute Hyperlipidemia chronic Hypertension chronic Hypokalemia chronic Migraine chronic Hyperlipidemia chronic Hypertension chronic Migraine chronic [facility] Work Phone: Evaluation note* Diagnosis Onset Date Resolution Status Hyperlipidemia chronic Hypertension chronic Migraine chronic [facility] Work Phone: Evaluation note* Diagnosis Onset Date Resolution Status Hyperlipidemia chronic Hypertension chronic Encounter for routine gynecological examination noneactive Hyperlipidemia chronic Hypertension chronic Seasonal allergies chronic [facility] Work Phone: Evaluation note* Diagnosis Onset Date Resolution Status Encounter for routine gynecological examination noneactive Hyperlipidemia chronic Seasonal allergies chronic [facility] Work Phone: evaluation note* Diagnosis Onset Date Resolution Status Encounter for routine gynecological examination noneactive Hyperlipidemia chronic Hypertension chronic Seasonal allergies chronic Health care maintenance acut e Hyperlipidemia chronic Hypertension chronic Hypokalemia chronic [facility] Work Phone: Evaluation noteNo assessment information available [facility] Work Phone: Hospital Discharge instructions Additional Instructions Please follow-up with GI or ENT for further evaluation. If you are unable to swallow come back to the emergency room.[facility] Work Phone: Hospital Discharge instructions Additional Instructions As discussed, please take 40 mEq of potassium twice a day for the next 4 days. Please have your potassium level rechecked in 1 week.[facility] Work Phone: Hospital Discharge instructionsAmbulatory Orders* Dermatology Location: None Selected [facility] Work Phone: Chief Complaint and Reason for Visit Chief Complaint Annual (QUILL SKINNER) 3 M FU 3 M FU Reason for Visit Hyperlipidemia Hypertension Hyperlipidemia Hypertension Migraine Chief Complaint 3 M FU 3 M FU Reason for Visit Hyperlipidemia Hypertension Migraine Hyperlipidemia Hypokalemia Hypertension Chief Complaint 3 M FU upper extremity Reason for Visit Hyperlipidemia Hypokalemia Hypertension Chief Complaint Annual (QUILL SKINNER) SCREENING Reason for Visit Encounter for routin e gynecological examination Chief Complaint Annual (QUILL SKINNER) SCREENING Follow up Reason for Visit Encounter for routin e gynecological examination Dry skin dermatitis Hyperlipidemia Hypertension Hypokalemia Migraine Chief Complaint Follow up 3 M FU Reason for Visit Dry skin dermatitis Hyperlipidemia Hypertension Hypokalemia Migraine Hyperlipidemia Hypertension Migraine Chief Complaint 3 M FU SORE THROAT Reason for Visit Hyperlipidemia Hypertension Migraine Chief Complaint 3 M FU SORE THROAT LIGHTHEADED Reason for Visit Hyperlipidemia Hypertension Migraine Chief Complaint 4 M FU Annual (QUILL SKINNER) 3 M FU Reason for Visit Hyperlipidemia Hypertension Encounter for routine gynecological examination Hyperlipidemia Hypertension Seasonal allergies Chief Complaint 4 M FU Annual (QUILL SKINNER) 3 M FU SCREENING Reason for Visit Hyperlipidemia Hypertension Encounter for routine gynecological examination Hyperlipidemia Hypertension Seasonal allergies Chief Complaint Annual (QUILL SKINNER) 3 M FU SCREENING fb throat Numbness in legs, CP Reason for Visit Encounter for routin e gynecological examination Hyperlipidemia Seasonal allergies Chief Complaint Annual (QUILL SKINNER) 3 M FU SCREENING fb throat Numbness in legs, CP 3 M FU Reason for Visit Encounter for routin e gynecological examination Hyperlipidemia Hypertension Seasonal allergies Health care maintenance Hyperlipidemia Hypertension Hypokalemia Chief Complaint Admit Date Medication April 29, 2025 12:47pm Family History No Family History Records Found Relationship Condition Age at Onset Recorded Date/T lisandro mother Myocardial infarction 45 Hypertension Unknown Disorder of thyroid Unknown Osteoporosis Unknown father Hyperlipidemia Unknown grandmother Myocardial infarction 48 Advance Directives No Advanced Directives Records Found Advance Directive Response Recorded Date/ Time Name of Medical Power of Medical Office Assistant Instructor vashti brown April 07, 2022 3:54pm Living Will Yes April 07 2 3:54pm Power of Medical Office Assistant Instructor Yes April 07, 2 022 3:54pm Advance Directive Response Recorded Date/ Time Living Will Yes April 07 2 2:54pm Power of Medical Office Assistant Instructor Yes April 07, 2 022 2:54pm Advance Directive Response Recorded Date/ Time Living Will Yes April 07 2 3:54pm Power of Medical Office Assistant Instructor Yes April 07, 2 022 3:54pm Advance Directive Response Recorded Date/ Time Name of Medical Power of Medical Office Assistant Instructor Vashti (mother) February 16, 2023 12:32pm Living Will Yes February 16, 2023 12:32pm Power of Medical Office Assistant Instructor Yes February 16 12:32pm Advance Directive Response Recorded Date/ Time Name of Medical Power of Medical Office Assistant Instructor Vashti (mother) February 16, 2023 12:32pm Living Will No February 19, 2023 10:42pm Power of Medical Office Assistant Instructor No February 19 10:42pm Advance Directive Response Recorded Date/ Time Living Will No February 19, 2023 9:42pm Power of Medical Office Assistant Instructor No February 19 9:42pm Advance Directive Response Recorded Date/ Time Living Will No October 23 6:43pm Power of Medical Office Assistant Instructor No October 23, 2023 6:43pm Advance Directive Response Recorded Date/ Time Living Will No October 23 7:43pm Power of Medical Office Assistant Instructor No October 23, 2023 7:43pm Summary Purpose Additional Source Comments Goals (unrecognized section and content) Goals may be documented in a n alternate sectionGoals may be documented in an alternate sectionGoals may be documented in an alternate sectionGoals may be documented in an alternate sectionGoals may be documented in an alternate sectionGoals may be documented in an alternate sectionGoals may be documented in an alternate sectionGoals may be documented in an alternate sectionGoals may be documented in an alternate sectionGoals may be documented in an alternate sectionGoals may be documented in an alternate sectionGoals may be documented in an alternate sectionGoals may be documented in an alternate section Care Teams (unrecognized sec tion and content) Team Status: Active Member Role Status Dates Dr. Andrae Caputo MD Family Provider Active Dr. Eloy Gonzalez MD Primary Care Provider Active Team Status: Inactive Member Role Status Dates Dr. Eloy Gonzalez MD Primary Care Provider, Refer ring Provider Active Serene Miller INSPECTOR TECHNICIAN, INSPECTOR TECHNICIAN-C Attending Provider Active Team Status: Inactive Member Role Status Dates Dr. Eloy Gonzalez MD Primary Care P duncan, Attending Provider, Referring Provider Active Team Status: Inactive Member Role Status Dates Dr. Eloy Gonzalez MD Primary Care Provider Active Serene Miller INSPECTOR TECHNICIAN, INSPECTOR TECHNICIAN-C Attending Provider Active Team Status: Inactive Member Role Status Dates Dr. Eloy Gonzalez MD Primary Care Provider Active Dr. Moe Zapata DO Emergency Provider Active Team Status: Inactive Member Role Status Dates Dr. Eloy Gonzalez MD Primary Care Provider Active Dr. Cody Gonzalez DO Emergency Provider Active Team Status: Inactive Member Role Status Dates Dr. Eloy Gonzalez MD Referring Provider Active Serene Miller INSPECTOR TECHNICIAN, INSPECTOR TECHNICIAN-C Attending Provider Active Team Status: Inactive Member Role Status Dates Dr. Eloy Gonzalez MD Attending Provider, Referrin g Provider Active Team Status: Inactive Member Role Status Dates Serene Miller INSPECTOR TECHNICIAN, INSPECTOR TECHNICIAN-C Attending Provider, Referring Provider Active Dr. Eloy Gonzalez MD Primary Care Provider Active Team Status: Inactive Member Role Status Dates Dr. Eloy Gonzalez MD Primary Care Provider Active Dr. Taylor Araiza MD Emergency Provider Active Team Status: Inactive Member Role Status Dates Dr. Eloy Gonzalez MD Primary Care Provider Active Dr. Anurag Lau MD Emergency Provider Active Team Status: Inactive Member Role Status Dates Dr. Eloy Gonzalez MD Primary Care Provider Active Dr. Taylor Araiza MD Attending Provider, Emergency Provider Active Team Status: Inactive Member Role Status Dates Dr. Eloy Gonzalez MD Primary Care Provider, Atten ding Provider Active Team Status: Inactive Member Role Status Dates Dr. Eloy Gonzalez MD Primary Care Provider Active Dr. Anurag Lau MD Attending Provider, Emergency Pro vider Active Team Status: Active Member Role/Relationship Status Dates Dr. Andare Caputo MD Family Provider Active Dr. Eloy Gonzalez MD Primary Care Provider Active Team Status: Inactive Member Role/Relationship Status Dates Dr. Eloy Gonzalez MD Primary Care Provider Active Start: April 29, 2025 End: April 29, 2025 Dr. Eloy Gonzalez MD Attending Provider Active Start: April 29, 2025 End: April 29, 2025 Dr. Eloy Gonzalez MD Referring Provider Active Start: April 29, 2025 End: April 29, 2025 INFORMATION SOURCE (unrecogn ized section and content) DATE CREATED AUTHOR 05/01/2025 [facility] FOR RECORDS PERTAINING TO PATIENTS WHO ARE OR HAVE BEEN ENROLLED IN A CHEMICAL DEPENDENCY/SUBSTANCEABUSE PROGRAM, SOME INFORMATION MAY BE OMITTED. This clinical summary was aggregated from multiple sources. Caution should be exercised in using it in the provision of clinical care. This summary normalizes information from multiple sources, and as a consequence, information in this document may materially change the coding, format and clinical context of patient data. In addition, data may be omitted in some cases. CLINICAL DECISIONS SHOULD BE BASED ON THE PRIMARY CLINICAL RECORDS. [employer] provides no warranty or guarantee of the accuracy or completeness of information in this document.
[2025-08-06 13:08] LABS: HPV APTIMA, High Risk Negative (Negative)
== END | disposition home or self-care (01) ==
LOC: LABSPEC 12:00
PROVIDERS: PCP Internal Medicine; Visit Provider Nurse Practitioner Women's Health
DX: Z12.4 Encounter for screening for malignant neoplasm of cervix (principal)
CPT/HCPCS: 87624; 88175; G0145

== ENCOUNTER → 2025-08-06 | Outpatient (CLI) | payer OTHER, SELFPAY ==
[2025-08-06 11:26] LABS: Hematocrit 45.4 % (37-47); Hemoglobin 15.2 g/dL (12.0-15.0); Immature Granulocytes Count 0.020 X10^3/uL (0.0-0.0); Mean Corp Hgb Conc 33.5 g/dL (32-36); Mean Corpuscular Volume 89.9 fL (81-99); Mean Platelet Vol. 10.5 fl (6.2-12.0); NRBC Flagged by Analyzer 0 % (0-5); Platelet Count 281 K/mm3 (150-450); RBC Distribution Width CV 12.1 % (11.6-14.6); RBC Distribution Width SD 39.7 fl (35.1-43.9); Red Blood Count 5.05 M/mm3 (4.2-5.4); White Blood Count 6.1 K/mm3 (4.4-11.0)
[2025-08-06 11:57] LABS: AST(SGOT) 18 U/L (<=31); Alanine Aminotransfer ALT/SGPT 11 U/L (<=34); Albumin, Serum 4.5 g/dL (3.5-5.0); Alkaline Phosphatase 55 U/L (35-104); Anion Gap 10 (5-15); BUN 12 mg/dL (4-19); BUN/Creat Ratio 16.0 RATIO (10-20); Calcium,Total 9.0 mg/dL (7.6-11.0); Carbon Dioxide 27.9 mmol/L (21.0-32.0); Chloride 101 mmol/L (98-108); Cholesterol 140 mg/dL (<=200); Globulin 2.7 g/dL (2.2-4.2); Glucose 112 mg/dL (70-99); Low Density Lipoprotein Calc. 72 mg/dL; Potassium 3.4 mmol/L (3.3-5.1); Triglycerides 80 mg/dL; Very Low Density Lipoprotein 16 mg/dL (5-40); cholesterol:hdl ratio screen 2.67
== END | disposition home or self-care (01) ==
LOC: LAB 10:11
PROVIDERS: PCP Internal Medicine; Referring Provider Internal Medicine; Visit Provider Internal Medicine
DX: E78.2 Mixed hyperlipidemia (principal)
CPT/HCPCS: 36415; 80053; 80061; 85025